=== PATIENT | male | born 1950 | race Caucasian/White ===

== ENCOUNTER 2017-07-23 10:00 | Outpatient (RCR) | payer MEDICARE, SELFPAY ==
--- NOTE | 2017-06-09 17:10 | HP.PTEVAL_ITS ---
Patient's Visit Information ARON AMES is a 67 year old M referred to Physical Therapy by Natalie Nicolas NP.TRINIPSIT with a diagnosis of LUMBAR STENOSIS WITH NEUROGENIC CLAUDICATION. OA DIAN HIPS.. Date of Evaluation: 06/09/17 Physical Therapist: Noemi Falcon - Visit Plan Frequency: 2-3x /Week Duration: 4-6 Weeks Plan: POSTURE CORRECTION/STRENGTHENING, INSTRUCTION IN APPROPRIATE BODY MECHANICS AND ACTIVITY MODIFICATIONS. DLS STARTING WITH A NEUTRAL SPINE PROGRESSING ROM TOLERATED. DIAN LE ROM, STRETCHING AND STRENGTHENING. HEP INSTRUCTION. - Subjective Subjective: Work/Leisure: RETIRED. Disability: NO. Present symptoms: LOW BACK PAIN RADIATING DOWN BOTH LEGS TO TOES. Present since: CHRONIC LBP BUT THIS EPISODE STARTED GETTING SEVER ABOUT 6 MONTHS AGO. Pain Scale: WORST 10/10 , LEAST 5/10. Currently: 12/05. Commenced as a result of: NO APPARENT REASON. Symptoms at onset: BACK. Worse: STANDING, STANDING, SITTING. Better : LYING DOWN - SLEEPING. Disturbed sleep: NO. Previous history/Previous treatment: ACCUPUNCTURE, PT, AQUA THERAPY, CHIROPRACTOR, DORIS'S - ALL TO NO AVAIL. Coughing/sneezing/straining: NEGATIVE. Gait: FWW AT TIMES. WALKING IS VERY PAINFUL. STATES HE HAS TO HOBBLE. STATES HE WALKS FAST TO GET IT OVER WITH. SOME DAYS CAN BARELY WALK 15 FEET. Difficulty initiating urinatin: NO. Accidents: NO. Unexplained weight loss: NO. Imaging: LUMBAR X-RAYS ABOUT A WEEK AGO SHOWING STENOSIS AND DIAN HIP ARTHRITIS. MRI PENDING OUTCOME OF PT. PMH: SEE BELOW. OTHER: STATES HE NEEDS OXYGEN OCCASSIONALLY AND WILL BRING HIS WITH HIM. - Objective Sitting Posture: POOR. Standing Posture: POOR. Lordosis: REDUCED. Lateral shift: NO. Relevant shift: N/A. Active Correction of posture: NE. Other Observations: INDEP GAIT INTO PT APPROX 300 FEET. PATIENT HURRIED TO THE CHAIR. BECAME SOB AT THE END OF THE WALK BUT REPORTED NEEDING TO SIT DOWN MOSTLY BECAUSE OF BACK AND LEG PAIN. HE CAME WITHOUT OXYGEN OR ASSISTIVE DEVICE. Motor deficit: SIGNIFICANT DIAN LE WEAKNESS LEFT > RIGHT. MMT'ING APPEARS TO BE PAIN LIMITED AND HIS GROSS LE STRENGTH APPEARS TO BE 3+ TO 4-/5. HE DOES HAVE STRONG DIAN DORSI FLEX STRENGTH BUT WEAK PLANTAR FLEXORS. Sensory deficit: DECREASED LEFT ANTERIOR AND LATERAL THIGH LIGHT TOUCH SENSATION WITH TESTING. ROM deficit: TIGHT DIAN HAMSTRINGS AND DORSIFLEXORS. Reflexes: UNABLE TO ELICIT DIAN LE DTR'S. Dural Signs: POSITIVE DIAN LE DURAL SIGNS. Lumbar mvmt loss: flex - JEWELL. ext - JEWELL. R SG - JEWELL. L SG - JEWELL. Core strength: POOR. Palpation: PATIENT IS VERY TENDER IN THE LUMBOSACRAL REGION AND CAN NOT TOLERATE SITTING WITH SUPPORT IN HIS LOW BACK. - Goals Goal 1:: DECREASE C/O BACK AND DIAN LE SX'S. Goal Time Frame: 4-6 Weeks Goal 2:: IMPROVE STANDING, WALKING, LIFTING, SITTING, SOCIAL LIFE, TRAVEL AND HOMEMAKING FUNCTION Goal Time Frame: 4-6 Weeks Goal 3:: INSTRUCT IN PROPHYLAXIS Goal Time Frame: 4-6 Weeks - Rehabilitation Potential Rehabilitation Potential: Fair - Anticipated Interventions Patient/Client Instruction: Educate patient on: Condition, Plan of Care, Risk Factors, Benefits of Fitness Program For the Purpose of:: To improve self management Therapeutic Exercise to Include: Strength training, Endurance training, Balance training, Body mechanics, Postural training, Flexibilty training, Gait and locomotor training, In an aquatic setting, Dynamic Lumbar Stabilization For the Purpose of:: To improve ability of physical actions for home/community/ work/leisure Thank you for the opportunity to evaluate your patient. For Medicare and Medicare HMO plans, please review the plan of care and approve it. It will need to be FAXED BACK to us at [phone] for Medicare purposes. Please let me know if there are questions or concerns regarding this plan of care. Physician Signature: Date:
--- NOTE | 2017-11-04 14:14 | HP.PTDCNRP_ITS ---
HP - Discharge Summary (1) - Patient Information ARON AMES was seen in my office for initial evaluation on 06/09/17. The following Plan of Care was established for this patient: Initial Frequency: 2-3x /Week Initial Duration: 4-6 Weeks - Anticipated Interventions Patient/Client Instruction: Educate patient on: Condition, Plan of Care, Risk Factors, Benefits of Fitness Program For the Purpose of:: To improve self management Therapeutic Exercise to Include: Strength training, Endurance training, Balance training, Body mechanics, Postural training, Flexibilty training, Gait and locomotor training, In an aquatic setting, Dynamic Lumbar Stabilization For the Purpose of:: To improve ability of physical actions for home/community/ work/leisure This patient was last seen in our office 07/23/17. Pertinent comments regarding their Physical therapy will appear below: This patient has not returned to Physical Therapy and is appropriate to return to MD for further follow-up as needed. At this point I will be discontinuing this patient from physical therapy. I would be happy to see this patient again in the future if found appropriate by the physician. Thank you! Noemi Falcon
== END 2017-07-23 19:00 | disposition home or self-care (01) ==
LOC: PT 10:00
PROVIDERS: Family Provider Family Medicine Geriatric Medicine; PCP Family Medicine Geriatric Medicine; Visit Provider Nurse Practitioner Acute Care
DX: M48.062 Spinal stenosis, lumbar region with neurogenic claudication (principal); M16.0 Bilateral primary osteoarthritis of hip
CPT/HCPCS: 97113; 97162; 97164; 97530

== ENCOUNTER → 2017-08-27 08:44 | Outpatient (CLI) | payer MEDICARE, SELFPAY ==
[2017-08-27 13:03] LABS: Absolute Neutrophil Count 3.2 X10^3/uL (2.0-7.7); Basophil# 0.02 X10^3/uL; Basophil% 0.3 % (0-1); Eosinophils% 3.2 % (0-5); Hematocrit 42.6 % (40-54); Hemoglobin 14.4 g/dl (13.0-16.5); Lymphocyte % 33.2 % (19-41); Mean Corp Hgb Conc 33.8 g/gl (32-36); Mean Corpuscular Volume 79.9 fL (80-94); Mean Platelet Vol. 11.2 fl (6.2-12.0); Monocyte% 12.7 % (0-10); Neutrophil # 3.18 X10^3/uL (2.7-7.7); Neutrophil % 50.3 % (47-70); Platelet Count 208 K/mm3 (150-450); RBC Distribution Width SD 37.6 fl (35.1-43.9); Red Blood Count 5.33 M/mm3 (4.6-6.2); White Blood Count 6.3 K/mm3 (4.4-11.0)
[2017-08-27 13:04] LABS: POSITIVE COUNT NO; POSITIVE DIFFERENTIAL NO; POSITIVE MORPHOLOGY NO
[2017-08-27 13:42] LABS: Vitamin D,25 Hydroxy 13.8 ng/mL (29.95-100.01)
[2017-08-27 13:43] LABS: ALB/GLOB Ratio 0.8 RATIO (0.9-2.4); AST(SGOT) 36 U/L (15-37); Alanine Aminotransfer ALT/SGPT 57 U/L (16-61); Albumin, Serum 3.3 g/dL (3.2-5.0); Alkaline Phosphatase 80 U/L (45-117); Anion Gap 12 (5-15); BUN 17 mg/dL (7-18); BUN/Creat Ratio 13.8 RATIO (10-20); Calcium,Total 8.8 mg/dL (8.5-10.1); Chloride 101 mmol/L (98-107); Creatinine, Serum 1.23 mg/dL (0.70-1.30); EST Glomerular Filtration Rate 62 mL/min (>60); Est Glom Filt Rate - Afr Amer 75 mL/min (>60); Globulin 4.1 g/dL (2.2-4.2); Glucose 286 mg/dL (74-106); Potassium 4.5 mmol/L (3.5-5.1); Protein, Total 7.4 g/dL (6.4-8.2); Sodium Level 136 mmol/L (136-145); Thyroid Stim Hormone (TSH) 2.08 uIU/mL (0.358-3.74)
== END ==
PROVIDERS: Family Provider Family Medicine Geriatric Medicine; PCP Family Medicine Geriatric Medicine; Visit Provider Family Medicine Geriatric Medicine
DX: E11.9 Type 2 diabetes mellitus without complications (principal); E55.9 Vitamin D deficiency, unspecified; I10 Essential (primary) hypertension
CPT/HCPCS: 36415; 80053; 82306; 84443; 85025

== ENCOUNTER → 2017-09-08 10:49 | Outpatient (CLI) | payer MEDICARE, SELFPAY ==
--- NOTE | 2017-09-08 10:51 | CT_ITS ---
STUDY: CT ABDOMEN AND PELVIS WITH IV CONTRAST REASON FOR EXAM: Male, 67 years old. Aortic aneurysm. RADIATION DOSAGE (If Supplied By Facility): CTDIvol = ( 29.55 ) mGy, DLP = ( 1303.45 ) mGycm TECHNIQUE: Transaxial images were obtained from the dome of the diaphragm to the symphysis pubis without oral contrast. 100 ml of Isovue 300 contrast was administered. Sagittal and coronal images were reconstructed. Individualized dose optimization techniques were used for this CT. COMPARISON: 08/13/2016 FINDINGS: There is atelectasis noted at the lung bases. The visualized portions of the heart and pericardium are within normal limits. The patient is status post cholecystectomy. The liver, spleen, pancreas, adrenal glands and kidneys are within normal limits. There is no bowel obstruction or inflammation. The appendix is normal. There is a stable 3.7 cm infrarenal abdominal aortic aneurysm. There is no evidence of abdominal aortic dissection. There are atherosclerotic calcifications noted in the aorta and its branches. The celiac artery, superior mesenteric artery, bilateral renal arteries and inferior mesenteric artery are patent and normal in caliber. There is no abdominal or pelvic free air, free fluid or lymphadenopathy. There are no destructive osseous lesions. CT/CT ANGIO ABD&PEL W/O&W/DYE IMPRESSION: Stable 3.7 cm infrarenal abdominal aortic aneurysm. Electronically Signed: Thien Montalvo, at 19:58 EDT Tel , Service support ,
--- NOTE | 2017-09-08 10:51 | CDU_ITS ---
Reason For Study: bruit Rt. Velocities/BP Lt. Velocities/BP Prox CCA 141.0/20.6 cm/sec. Prox CCA 119.0/20.4 cm/sec. Mid CCA 105.0/21.1 cm/sec. Mid CCA 166.0/29.5 cm/sec. Dist CCA 189.0/26.5 cm/sec. Dist CCA 176.0/30.4 cm/sec. Prox ICA 307.0/71.1 cm/sec. Prox ICA 139.0/35.4 cm/sec. Mid ICA 256.0/50.5 cm/sec. Mid ICA 440.0/101.0 cm/sec. Dist ICA 124.0/41.9 cm/sec. Dist ICA 343.0/58.4 cm/sec. Rt. ICA/CCA = 307.0/105.0=2.9. Lt. ICA/CCA = 440.0/166.0=2.7. Prox ECA 279.0/24.9 cm/sec. Prox ECA 203.0/18.3 cm/sec. Rt. Vert. 98.2/21.6 cm/sec. Lt. Vert. 51.1/9.43 cm/sec. Right Extracranial There is heterogeneous, irregular atherosclerotic plaque noted in the right common carotid artery. There is heterogeneous, irregular atherosclerotic plaque noted in the right internal carotid artery. The atherosclerotic plaque causes acoustic shadowing. There is heterogeneous, irregular atherosclerotic plaque noted in the right external carotid artery. Antegrade flow is noted in the right vertebral artery. Left Extracranial There is heterogeneous, irregular atherosclerotic plaque noted in the left common carotid artery. There is heterogeneous, irregular atherosclerotic plaque noted in the left internal carotid artery. The atherosclerotic plaque causes acoustic shadowing. There is homogeneous, smooth atherosclerotic plaque noted in the left external carotid artery. Antegrade flow is noted in the left vertebral artery. Procedure Carotid Duplex [id number]. The study was technically difficult. Due to body habitus. Exam performed in department. Interpretation Summary Severe (>70%) stenosis right extracranial internal carotid. Severe (>70%) stenosis left extracranial internal carotid. Flow within the vertebral arteries is antegrade bilaterally. Ordering Physician: Ramiro Waldron Referring Physician: Bruce Calvillo Chi Performed By: Lillian Rios RDCS, RVT
== END ==
PROVIDERS: Family Provider Family Medicine Geriatric Medicine; PCP Family Medicine Geriatric Medicine; Visit Provider Internal Medicine Cardiovascular Disease
DX: I71.4 Abdominal aortic aneurysm, without rupture (principal); R09.89 Other specified symptoms and signs involving the circulatory and respiratory systems
CPT/HCPCS: 74174; 93880; Q9967; A4216

== ENCOUNTER → 2017-11-28 11:40 | Outpatient (CLI) | payer MEDICARE, SELFPAY ==
[2017-11-28 13:33] LABS: Creatinine, Serum 1.25 mg/dL (0.70-1.30); EST Glomerular Filtration Rate 61 mL/min (>60); Est Glom Filt Rate - Afr Amer 74 mL/min (>60)
== END ==
PROVIDERS: Family Provider Family Medicine Geriatric Medicine; PCP Family Medicine Geriatric Medicine; Visit Provider Surgery Vascular Surgery
DX: I65.23 Occlusion and stenosis of bilateral carotid arteries (principal)
CPT/HCPCS: 36415; 82565

== ENCOUNTER → 2017-12-01 09:33 | Outpatient (CLI) | payer MEDICARE, SELFPAY ==
[2017-12-01 13:03] LABS: Absolute Lymphocyte Count 3.03 X10^3/ul (0.83-4.51); Basophil# 0.04 X10^3/uL; Basophil% 0.5 % (0-1); Eosinophil# 0.29 X10^3/uL; Eosinophils% 3.5 % (0-5); Hematocrit 43.8 % (40-54); Hemoglobin 14.6 g/dl (13.0-16.5); Lymphocyte # 3.03 X10^3/ul (4.0); Lymphocyte % 36.8 % (19-41); Mean Corp Hgb Conc 33.3 g/gl (32-36); Mean Corpuscular Hgb 26.6 pg (27.0-32.0); Mean Corpuscular Volume 79.9 fL (80-94); Mean Platelet Vol. 11.3 fl (6.2-12.0); Monocyte# 0.88 X10^3/uL; Monocyte% 10.7 % (0-10); Neutrophil # 3.99 X10^3/uL (2.7-7.7); Neutrophil % 48.4 % (47-70); Platelet Count 197 K/mm3 (150-450); RBC Distribution Width CV 14.1 % (11.6-14.6); Red Blood Count 5.48 M/mm3 (4.6-6.2); White Blood Count 8.2 K/mm3 (4.4-11.0)
[2017-12-01 13:04] LABS: POSITIVE COUNT NO; POSITIVE DIFFERENTIAL NO; POSITIVE MORPHOLOGY NO
[2017-12-01 13:29] LABS: Vitamin D,25 Hydroxy 13.8 ng/mL (29.95-100.01)
[2017-12-01 13:31] LABS: ALB/GLOB Ratio 0.8 RATIO (0.9-2.4); AST(SGOT) 36 U/L (15-37); Alanine Aminotransfer ALT/SGPT 59 U/L (16-61); Albumin, Serum 3.3 g/dL (3.2-5.0); Alkaline Phosphatase 66 U/L (45-117); Anion Gap 10 (5-15); BUN 16 mg/dL (7-18); BUN/Creat Ratio 13.8 RATIO (10-20); Chloride 103 mmol/L (98-107); Creatinine, Serum 1.16 mg/dL (0.70-1.30); EST Glomerular Filtration Rate 66 mL/min (>60); Est Glom Filt Rate - Afr Amer 80 mL/min (>60); Globulin 4.3 g/dL (2.2-4.2); Glucose 180 mg/dL (74-106); PSA,Total - Annual Screen 0.84 ng/mL (0.00-4.00); Potassium 4.4 mmol/L (3.5-5.1); Protein, Total 7.6 g/dL (6.4-8.2); Sodium Level 141 mmol/L (136-145); Thyroid Stim Hormone (TSH) 1.23 uIU/mL (0.358-3.74)
[2017-12-02 15:15] LABS: Hep C Antibodies 0.1 s/co ratio (0.0-0.9)
== END ==
PROVIDERS: Family Provider Family Medicine Geriatric Medicine; PCP Family Medicine Geriatric Medicine; Visit Provider Family Medicine Geriatric Medicine
DX: E11.9 Type 2 diabetes mellitus without complications (principal); E55.9 Vitamin D deficiency, unspecified; I10 Essential (primary) hypertension; Z12.5 Encounter for screening for malignant neoplasm of prostate; Z13.89 Encounter for screening for other disorder
CPT/HCPCS: 36415; 80053; 82306; 84153; 84443; 85025; 86803; G0103

== ENCOUNTER → 2017-12-05 08:32 | Outpatient (CLI) | payer MEDICARE, SELFPAY ==
--- NOTE | 2017-12-05 08:35 | US_ITS ---
PROCEDURES: ULTRASOUND AORTA REASON FOR EXAM: Male, 67 years old. Abdominal aortic aneurysm TECHNIQUE: Ultrasound evaluation of the aorta was performed with real-time and static franklin-scale imaging. COMPARISON: None. FINDINGS: There is no significant tortuosity of the abdominal aorta. Aorta measures: Proximal 2.4 cm. Middle 2.4 cm. Distal 3.3 cm. Aorta measure transversely: Proximal 2.1 cm. Middle 2.5 cm. Distal 3.6 cm. Right iliac artery measures: 1.4 cm. Right iliac artery measure transversely: 1.5 cm. Left iliac artery measures: 1.8 cm. Left iliac artery measure transversely: 1.9 cm. Infrarenal abdominal aortic aneurysm measures 3.6 cm in greatest diameter and 3.7 cm in length. US/Aorta IMPRESSION: 3.6 cm infrarenal abdominal aortic aneurysm. Electronically Signed: Abdi Joy MD at 2:52 EDT Tel , Service support ,
== END ==
PROVIDERS: Family Provider Family Medicine Geriatric Medicine; PCP Family Medicine Geriatric Medicine; Visit Provider Family Medicine Geriatric Medicine
DX: I71.4 Abdominal aortic aneurysm, without rupture (principal)
CPT/HCPCS: 76775

== ENCOUNTER → 2017-12-15 07:43 | Outpatient (CLI) | payer MEDICARE, SELFPAY | PROVIDERS: Family Provider Family Medicine Geriatric Medicine; PCP Family Medicine Geriatric Medicine; Visit Provider Surgery Vascular Surgery | DX: I65.23 Occlusion and stenosis of bilateral carotid arteries (principal) | CPT/HCPCS: 70498; Q9967 ==

== ENCOUNTER → 2018-03-02 10:44 | Outpatient (CLI) | payer MEDICARE, SELFPAY ==
[2018-03-02 12:46] LABS: Absolute Lymphocyte Count 3.29 X10^3/ul (0.83-4.51); Absolute Neutrophil Count 4.6 X10^3/uL (2.0-7.7); Basophil# 0.05 X10^3/uL; Basophil% 0.5 % (0-1); Eosinophil# 0.22 X10^3/uL; Eosinophils% 2.4 % (0-5); Hematocrit 47.7 % (40-54); Hemoglobin 15.1 g/dl (13.0-16.5); Lymphocyte # 3.29 X10^3/ul (4.0); Lymphocyte % 35.7 % (19-41); Mean Corp Hgb Conc 31.7 g/gl (32-36); Mean Corpuscular Volume 85.3 fL (80-94); Mean Platelet Vol. 11.1 fl (6.2-12.0); Monocyte# 1.07 X10^3/uL; Monocyte% 11.6 % (0-10); Neutrophil # 4.57 X10^3/uL (2.7-7.7); Neutrophil % 49.6 % (47-70); Platelet Count 182 K/mm3 (150-450); RBC Distribution Width CV 16.6 % (11.6-14.6); RBC Distribution Width SD 52.1 fl (35.1-43.9); Red Blood Count 5.59 M/mm3 (4.6-6.2); White Blood Count 9.2 K/mm3 (4.4-11.0)
[2018-03-02 12:49] LABS: POSITIVE COUNT NO; POSITIVE DIFFERENTIAL NO; POSITIVE MORPHOLOGY NO
[2018-03-02 13:08] LABS: ALB/GLOB Ratio 0.8 RATIO (0.9-2.4); AST(SGOT) 33 U/L (15-37); Alanine Aminotransfer ALT/SGPT 66 U/L (16-61); Albumin, Serum 3.3 g/dL (3.2-5.0); Alkaline Phosphatase 59 U/L (45-117); Anion Gap 11 (5-15); BUN 13 mg/dL (7-18); BUN/Creat Ratio 10.4 RATIO (10-20); Calcium,Total 8.4 mg/dL (8.5-10.1); Chloride 102 mmol/L (98-107); Creatinine, Serum 1.25 mg/dL (0.70-1.30); EST Glomerular Filtration Rate 61 mL/min (>60); Est Glom Filt Rate - Afr Amer 74 mL/min (>60); Globulin 4.3 g/dL (2.2-4.2); Glucose 211 mg/dL (74-106); Potassium 4.5 mmol/L (3.5-5.1); Protein, Total 7.6 g/dL (6.4-8.2); Sodium Level 138 mmol/L (136-145); Thyroid Stim Hormone (TSH) 0.95 uIU/mL (0.358-3.74)
[2018-03-02 13:11] LABS: Vitamin D,25 Hydroxy 12.6 ng/mL (29.95-100.01)
== END ==
PROVIDERS: Family Provider Family Medicine Geriatric Medicine; PCP Family Medicine Geriatric Medicine; Visit Provider Family Medicine Geriatric Medicine
DX: E11.9 Type 2 diabetes mellitus without complications (principal); E55.9 Vitamin D deficiency, unspecified; I10 Essential (primary) hypertension
CPT/HCPCS: 36415; 80053; 82306; 84443; 85025

== ENCOUNTER → 2018-06-01 13:53 | Outpatient (CLI) | payer MEDICARE, SELFPAY ==
[2018-06-01 16:21] LABS: Vitamin D,25 Hydroxy 10.1 ng/mL (29.95-100.01)
[2018-06-01 16:25] LABS: ALB/GLOB Ratio 0.8 RATIO (0.9-2.4); AST(SGOT) 23 U/L (15-37); Alanine Aminotransfer ALT/SGPT 52 U/L (16-61); Albumin, Serum 3.3 g/dL (3.2-5.0); Alkaline Phosphatase 70 U/L (45-117); Anion Gap 11 (5-15); BUN 14 mg/dL (7-18); BUN/Creat Ratio 11.3 RATIO (10-20); Calcium,Total 8.7 mg/dL (8.5-10.1); Chloride 103 mmol/L (98-107); Creatinine, Serum 1.24 mg/dL (0.70-1.30); EST Glomerular Filtration Rate 61 mL/min (>60); Est Glom Filt Rate - Afr Amer 74 mL/min (>60); Globulin 3.9 g/dL (2.2-4.2); Glucose 252 mg/dL (74-106); Potassium 4.6 mmol/L (3.5-5.1); Protein, Total 7.2 g/dL (6.4-8.2); Sodium Level 141 mmol/L (136-145); Thyroid Stim Hormone (TSH) 1.23 uIU/mL (0.358-3.74)
[2018-06-01 16:31] LABS: Absolute Lymphocyte Count 2.32 X10^3/ul (0.83-4.51); Absolute Neutrophil Count 3.3 X10^3/uL (2.0-7.7); Basophil# 0.02 X10^3/uL; Basophil% 0.3 % (0-1); Eosinophil# 0.23 X10^3/uL; Eosinophils% 3.5 % (0-5); Hematocrit 45.6 % (40-54); Hemoglobin 14.7 g/dl (13.0-16.5); Lymphocyte # 2.32 X10^3/ul (4.0); Mean Corp Hgb Conc 32.2 g/gl (32-36); Mean Corpuscular Hgb 28.1 pg (27.0-32.0); Mean Platelet Vol. 11.3 fl (6.2-12.0); Monocyte# 0.75 X10^3/uL; Monocyte% 11.3 % (0-10); Neutrophil % 49.7 % (47-70); Platelet Count 174 K/mm3 (150-450); RBC Distribution Width CV 13.5 % (11.6-14.6); RBC Distribution Width SD 42.7 fl (35.1-43.9); Red Blood Count 5.24 M/mm3 (4.6-6.2); White Blood Count 6.6 K/mm3 (4.4-11.0)
[2018-06-01 16:32] LABS: POSITIVE COUNT NO; POSITIVE DIFFERENTIAL NO; POSITIVE MORPHOLOGY NO
== END ==
PROVIDERS: Family Provider Family Medicine Geriatric Medicine; PCP Family Medicine Geriatric Medicine; Visit Provider Family Medicine Geriatric Medicine
DX: E11.9 Type 2 diabetes mellitus without complications (principal); E23.6 Other disorders of pituitary gland; E55.9 Vitamin D deficiency, unspecified; I10 Essential (primary) hypertension
CPT/HCPCS: 36415; 80053; 82306; 84403; 84443; 85025

== ENCOUNTER → 2018-06-10 14:22 | Outpatient (CLI) | payer MEDICARE, SELFPAY ==
[2018-06-02 14:32] VITALS: BMI 39.4
--- NOTE | 2018-06-10 14:30 | CT_ITS ---
STUDY: CT SOFT TISSUE NECK WITH CONTRAST REASON FOR EXAM: Male, 68 years old. Pain and swelling. History of lung and tongue cancer. Postsurgery of the tongue. RADIATION DOSAGE (If Supplied By Facility): CTDIvol = ( ) mGy, DLP = ( ) mGycm TECHNIQUE: The patient was scanned in a multi-detector CT scanner. High resolution transaxial imaging was performed following intravenous administration of Isovue 300 75ML IV. Sagittal and coronal images were reconstructed. Individualized dose optimization techniques were used for this CT. COMPARISON: 12/15/17. FINDINGS: Distortions of the tongue, and the left pharyngeal wall and parapharyngeal spaces is seen related to surgical dissection. The appearance is similar to prior study. 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 No gross focal mass or adenopathy is seen. No gross invasive process. Grossly normal oropharynx. No definite oropharyngeal mass. No gross adenopathy. Extensive bilateral calcified atherosclerosis seen in the carotids with significant bilateral narrowing, also seen on the previous CTA of 12/15/2017. Atrophy is seen of the parotid glands. The left submandibular gland has been removed. Normal visualized nasopharynx. Normal retropharyngeal space. Normal perivertebral space. The visualized cervical lymph nodes (levels I-) are within normal size limits, and maintain normal morphology. There is no demonstrated solid or cystic mass lesion. There is no abnormal contrast enhancement. Normal epiglottis, bilateral vallecula and hypopharynx. The pre-epiglottic and paraglottic adipose spaces are normal. Normal visualized bilateral piriform sinuses, aryepiglottic folds, vocal cords, and arytenoid-cricoid articulations. Normal subglottic trachea. Normal bilateral lobes of the thyroid gland. Normal visualized pulmonary apices. Normal visualized paranasal sinuses. Normal visualized cervical spine. CT/Soft Tissue Neck WITH Contrast IMPRESSION: Postsurgical changes and distortions on the left including absence of the left sternocleidomastoid, unchanged since 12/15/2017. No evidence for adenopathy or recurrent mass. Severe bilateral carotid atherosclerosis. Electronically Signed: Rodríguez Duong MD at 21:24 EST , Service support ,
== END ==
PROVIDERS: Family Provider Family Medicine Geriatric Medicine; PCP Family Medicine Geriatric Medicine; Referring Provider Otolaryngology; Visit Provider Otolaryngology
DX: M54.2 Cervicalgia (principal); Z85.818 Personal history of malignant neoplasm of other sites of lip, oral cavity, and pharynx; Z98.890 Other specified postprocedural states
CPT/HCPCS: 70491; Q9967

== ENCOUNTER → 2018-06-18 11:01 | Outpatient (CLI) | payer MEDICARE, SELFPAY ==
[2018-06-02 14:32] VITALS: BMI 39.4
--- NOTE | 2018-06-19 10:07 | PFTCOMP ---
COMPLETE PULMONARY FUNCTION TEST INTERPRETATION Brief HPI: Patient is a 68 year old male, currently under the care of Inge Miller, who presents to [facility] for complete pulmonary function tests secondary to diagnosis of COPD. Respiratory therapist reports good effort and reproducible results. Interpretation: Forced expiration spirometry shows a severe large airways obstructive ventilatory defect with an FEV1 of 46% predicted. There is a significant bronchodilator response in FVC and FEV1 by strict ATS criteria. Spirograms are of good quality and plateau slowly, indicating slowly emptying areas of the lungs. The respiratory flow volume loop shows decreased expiratory flow rates at all lung volumes consistent with airway obstruction. Lung volumes by body plethysmography show a decreased total lung capacity at 5.24 L, 75% predicted. All other lung volumes are reduced symmetrically. Diffusion capacity by carbon monoxide is decreased at 63% predicted. The airway resistance is elevated. Compared to previous pulmonary function tests from 11/07/2015, there has been no significant change. Impression: Severe mixed ventilatory defect with significant response to bronchodilators.
== END ==
PROVIDERS: Family Provider Family Medicine Geriatric Medicine; PCP Family Medicine Geriatric Medicine; Referring Provider Nurse Practitioner Acute Care; Visit Provider Nurse Practitioner Acute Care
DX: J44.9 Chronic obstructive pulmonary disease, unspecified (principal)
CPT/HCPCS: 94060; 94726; 94729

== ENCOUNTER → 2018-06-23 14:36 | Outpatient (CLI) | payer MEDICARE, SELFPAY ==
[2018-06-23 13:46] VITALS: BMI 39.6
== END ==
PROVIDERS: Family Provider Family Medicine Geriatric Medicine; PCP Family Medicine Geriatric Medicine; Referring Provider Nurse Practitioner Family; Visit Provider Nurse Practitioner Family
DX: I25.10 Atherosclerotic heart disease of native coronary artery without angina pectoris (principal); I50.32 Chronic diastolic (congestive) heart failure; R06.09 Other forms of dyspnea; R53.83 Other fatigue; Z95.5 Presence of coronary angioplasty implant and graft
CPT/HCPCS: 36415; 83880

== ENCOUNTER → 2018-06-24 10:52 | Outpatient (CLI) | payer MEDICARE, SELFPAY ==
[2018-06-02 14:32] VITALS: BMI 39.4
[2018-06-23 13:46] VITALS: BMI 39.6
[2018-06-24 11:24] VITALS: PULSE 68; PULSE 71; PULSE 74; PULSE 76; PULSE 77; PULSE 79; PULSE 86; PULSE 87; O2SAT 90; O2SAT 91; O2SAT 92; O2SAT 94; O2SAT 96
--- NOTE | 2018-06-24 13:30 | PCM.PSN.6M ---
PSN 6 Minute Walk Test - 6 Minute Walk Test 6 Minute Walk Test: 6 Minute Walk Test PSN:6-Minute Walk Test Start: 06/24/18 11:24 Freq: Status: Active Protocol: RESP.6MINW Document 06/24/18 11:24 HAYDEE (Rec: 06/24/18 11:28 HAYDEE [id number]) 6 Minute Walk Test Date Performed 06/24/18 Time Performed 11:00 Height 6 ft Weight: 290 lb Weight in Pounds 290.[address]: Walt Finley Assistive device used: None Pre-test Oxygen Delivery Method Room Air Pulse Ox (%) 94 Pulse Rate (60-100 beats/min) 71 Dyspnea Aiyana Scale (0-10) 0.5 Exertion Aiyana Scale (6-20) 6 1st minute Oxygen Delivery Method Room Air Pulse Ox (%) 94 Pulse Rate (60-100 beats/min) 74 2nd minute Oxygen Delivery Method Room Air Pulse Ox (%) 92 Pulse Rate (60-100 beats/min) 86 Number of Rests Taken 1 3rd minute Oxygen Delivery Method Room Air Pulse Ox (%) 91 Pulse Rate (60-100 beats/min) 79 4th minute Oxygen Delivery Method Room Air Pulse Ox (%) 92 Pulse Rate (60-100 beats/min) 87 Number of Rests Taken 1 Reported Symptoms Increased Work of Breathing 5th minute Oxygen Delivery Method Room Air Pulse Ox (%) 90 Pulse Rate (60-100 beats/min) 77 Number of Rests Taken 1 Reported Symptoms Increased Work of Breathing 6th minute Oxygen Delivery Method Room Air Pulse Ox (%) 92 Pulse Rate (60-100 beats/min) 76 Dyspnea Aiyana Scale (0-10) 5 Exertion Aiyana Scale (6-20) 14 Reported Symptoms Increased Work of Breathing Post-test Oxygen Delivery Method Room Air Pulse Ox (%) 96 Pulse Rate (60-100 beats/min) 68 Full Laps Walked 10 Partial Lap, Number of Tiles Walked 15 Total Distance Walked (ft) 605 - Interpretation Interpretation: The patient ambulated 605 feet over the course of 6 minutes beginning on room air without assistive devices or breaks. Pretesting oxygen saturation was noted to be 94% on room air. With ambulation, the bimal oxygen saturation was 90%. This testing indicated the presence of impaired walk distance and significant exertional oxygen desaturation. - Recommendations Recommendations: There is no indication for the use of supplemental oxygen at this time. However, close interval follow-up is recommended, given the degree of oxygen desaturation noted during this study.
== END ==
PROVIDERS: Family Provider Family Medicine Geriatric Medicine; PCP Family Medicine Geriatric Medicine; Referring Provider Nurse Practitioner Acute Care; Visit Provider Nurse Practitioner Acute Care
DX: J44.9 Chronic obstructive pulmonary disease, unspecified (principal)
CPT/HCPCS: 94618

== ENCOUNTER → 2018-07-23 09:41 | Outpatient (CLI) | payer MEDICARE, SELFPAY ==
[2018-06-23 13:46] VITALS: BMI 39.6
[2018-07-17 09:34] VITALS: BMI 39.3
--- NOTE | 2018-07-23 09:43 | ECHOCS_ITS ---
Reason For Study: Dyspnea/SOB Procedure This was a 2D Doppler, Color Flow transthoracic echocardiogram. Technically difficult study due to patient body habitus, contrast injection performed. The study was technically difficult. Contrast injection was performed. Exam performed in department. Left Ventricle Based upon the 2D echocardiographic and contrast enhanced images obtained there appears to be grossly normal left ventricular size, wall motion, and systolic function. The estimated ejection fraction is 60 %. Diastolic function is indeterminate. Right Ventricle Based upon the 2D echocardiographic images obtained there appears to be grossly normal right ventricular size and systolic function. Atria The left atrium is mildly enlarged. Normal right atrium. No doppler evidence for ASD. Mitral Valve There is mild mitral annular calcification. Extension of the mitral annular calcification onto the posterior mitral valve leaflet. Trivial mitral valve insufficiency. Tricuspid Valve The tricuspid valve is not well visualized. Trivial tricuspid valve insufficiency. Unable to estimate RV systolic pressure/pulmonary artery pressure due to technically difficult study. Aortic Valve Trisinus/trileaflet aortic valve. Mild focal aortic valve calcification. Pulmonic Valve The pulmonic valve is not well visualized. Great Vessels The aortic root is not well visualized. Pericardium/Pleural No pericardial effusion. Medication 22 gauge I.V. with prn adaptor inserted into right arm. Diluted definity 7ml given slow IV push to enhance endocardial definition. MMode/2D Measurements & Calculations LVIDd: 5.0 cm IVSd: 1.7 cm LAV(MOD-bp): 61.7 ml LVIDs: 3.3 cm LVPWd: 1.2 cm FS: 34.7 % LAV(MOD-bp) Indexed: 24.7 ml/m2 LAV(MOD-sp2): 61.1 ml LAV(MOD-sp4): 59.0 ml LA A4 area: 20.3 cm2 Time Measurements MV dec time: 0.31 sec Doppler Measurements & Calculations MV E max garfield: 97.9 cm/sec Lat Peak E' Garfield: 6.6 cm/sec Med Peak E' Garfield: 6.5 cm/sec MV A max garfield: 133.7 cm/sec E/E' lat: 14.9 E/E' med: 15.2 MV E/A: 0.73 MV V2 max: 134.8 cm/sec MV P1/2t max garfield: 112.7 cm/sec Ao V2 max: 156.0 cm/sec MV max P.3 mmHg MV P1/2t: 99.3 msec Ao max P.7 mmHg MV V2 mean: 69.2 cm/sec Ao V2 mean: 107.7 cm/sec MV mean P.3 mmHg MV dec slope: 332.2 cm/sec2 Ao mean P.1 mmHg MV V2 VTI: 44.2 cm MVA(P1/2t): 2.2 cm2 Ao V2 VTI: 28.4 cm LV V1 max: 122.2 cm/sec PA V2 max: 133.9 cm/sec LV V1 max P.0 mmHg LV V1 mean P.9 mmHg LV V1 mean: 78.4 cm/sec LV V1 VTI: 25.3 cm Interpretation Summary The study was technically difficult. Contrast injection was performed. Based upon the 2D echocardiographic and contrast enhanced images obtained there appears to be grossly normal left ventricular size, wall motion, and systolic function. The estimated ejection fraction is 60 %. The left atrium is mildly enlarged. There is mild mitral annular calcification. Extension of the mitral annular calcification onto the posterior mitral valve leaflet. Trivial mitral valve insufficiency. Trivial tricuspid valve insufficiency. Mild focal aortic valve calcification. Unable to estimate RV systolic pressure/pulmonary artery pressure due to technically difficult study. Diastolic function is indeterminate. Ordering Physician: Neno Polanco Referring Physician: Neno Polanco Performed By: Florencio Lucio RCS
== END ==
PROVIDERS: Family Provider Family Medicine Geriatric Medicine; PCP Family Medicine Geriatric Medicine; Referring Provider Nurse Practitioner Family; Visit Provider Nurse Practitioner Family
DX: G47.33 Obstructive sleep apnea (adult) (pediatric) (principal); R06.09 Other forms of dyspnea; R53.83 Other fatigue; I25.10 Atherosclerotic heart disease of native coronary artery without angina pectoris; I50.32 Chronic diastolic (congestive) heart failure; Z95.5 Presence of coronary angioplasty implant and graft
CPT/HCPCS: 93306; Q9957; A4216; C8929

== ENCOUNTER → 2018-07-27 09:39 | Outpatient (CLI) | payer MEDICARE, SELFPAY ==
[2018-07-17 09:34] VITALS: BMI 39.3
--- NOTE | 2018-07-27 09:42 | CDU_ITS ---
Reason For Study: VERTIGO Rt. Velocities/BP Lt. Velocities/BP Prox CCA 98.6/21.6 cm/sec. Prox CCA 160.0/30.5 cm/sec. Mid CCA 89.4/20.3 cm/sec. Mid CCA 168.8/39.3 cm/sec. Dist CCA 180.3/40.4 cm/sec. Dist CCA 207.6/38.6 cm/sec. Prox ICA 337.7/79.4 cm/sec. Prox ICA 159.4/35.2 cm/sec. Mid ICA 263.4/44.2 cm/sec. Mid ICA 270.2/63.3 cm/sec. Dist ICA 131.9/23.1 cm/sec. Dist ICA 124.1/43.8 cm/sec. Rt. ICA/CCA = 337.7/89.4=3.8. Lt. ICA/CCA = 270.2/168.8=1.6. Prox ECA 274.0/27.0 cm/sec. Prox ECA 211.4/14.5 cm/sec. Rt. Vert. 52.7/17.1 cm/sec. Lt. Vert. 65.0/17.1 cm/sec. Right Extracranial There is heterogeneous, irregular atherosclerotic plaque noted in the right common carotid artery. There is heterogeneous, irregular atherosclerotic plaque noted in the right internal carotid artery. The atherosclerotic plaque causes acoustic shadowing. There is heterogeneous, irregular atherosclerotic plaque noted in the right external carotid artery. Antegrade flow is noted in the right vertebral artery. There is heterogeneous, irregular atherosclerotic plaque noted in the right bulb. Left Extracranial There is heterogeneous, irregular atherosclerotic plaque noted in the left common carotid artery. There is heterogeneous, irregular atherosclerotic plaque noted in the left internal carotid artery. The atherosclerotic plaque causes acoustic shadowing. There is heterogeneous, smooth atherosclerotic plaque noted in the left external carotid artery. Antegrade flow is noted in the left vertebral artery. There is heterogeneous, irregular atherosclerotic plaque noted in the left bulb. Procedure Carotid Duplex [id number]. The study was technically difficult. Pt had difficulty holding neck in optimal position for exam. The exam was diagnostic. Exam performed in department. Interpretation Summary Severe (>70%) stenosis right extracranial internal carotid. Moderate (50-69%) stenosis left extracranial internal carotid. Flow within the vertebral arteries is antegrade bilaterally. Ordering Physician: Neno Polanco Referring Physician: Bud Cohen Performed By: Lillian Rios, RASHAD, RVT
== END ==
PROVIDERS: Family Provider Family Medicine Geriatric Medicine; PCP Family Medicine Geriatric Medicine; Referring Provider Nurse Practitioner Family; Visit Provider Nurse Practitioner Family
DX: I65.23 Occlusion and stenosis of bilateral carotid arteries (principal); R42 Dizziness and giddiness
CPT/HCPCS: 93880

== ENCOUNTER → 2018-08-03 11:33 | Outpatient (CLI) | payer MEDICARE, SELFPAY ==
[2018-08-03 10:53] VITALS: BMI 39.3
--- NOTE | 2018-08-03 11:36 | RAD_ITS ---
STUDY: X-RAY CHEST REASON FOR EXAM: Male, 68 years old. Preoperative TECHNIQUE: PA and lateral views of the chest. COMPARISON: 11/25/2016 FINDINGS: The lungs are clear and expanded. There is no demonstrated pleural abnormality. There is borderline cardiomegaly. Normal mediastinum and diane. Normal visualized pulmonary arteries. Normal visualized aortic arch and descending thoracic aorta. There are diffuse degenerative changes of the visualized thoracic spine. Normal visualized ribs, clavicles, and shoulders. There is no demonstrated abnormality of the visualized soft tissue structures of the upper abdomen. RAD/Chest PA and Lateral IMPRESSION: Clear lungs. No acute findings. Electronically Signed: Lauri Cardenas DO at 11:45 EDT Tel , Service support ,
[2018-08-03 13:15] LABS: Absolute Lymphocyte Count 2.86 X10^3/ul (0.83-4.51); Absolute Neutrophil Count 3.2 X10^3/uL (2.0-7.7); Basophil# 0.03 X10^3/uL; Basophil% 0.4 % (0-1); Eosinophil# 0.26 X10^3/uL; Eosinophils% 3.6 % (0-5); Hematocrit 43.3 % (40-54); Hemoglobin 14.5 g/dl (13.0-16.5); Lymphocyte # 2.86 X10^3/ul (4.0); Lymphocyte % 39.8 % (19-41); Mean Corp Hgb Conc 33.5 g/gl (32-36); Mean Corpuscular Hgb 26.9 pg (27.0-32.0); Mean Corpuscular Volume 80.3 fL (80-94); Mean Platelet Vol. 11.4 fl (6.2-12.0); Monocyte# 0.79 X10^3/uL; Neutrophil # 3.23 X10^3/uL (2.7-7.7); Neutrophil % 44.9 % (47-70); Platelet Count 172 K/mm3 (150-450); RBC Distribution Width CV 12.9 % (11.6-14.6); RBC Distribution Width SD 37.7 fl (35.1-43.9); Red Blood Count 5.39 M/mm3 (4.6-6.2); White Blood Count 7.2 K/mm3 (4.4-11.0)
[2018-08-03 13:19] LABS: International Normalized Ratio 1.1; Prothrombin Time (Protime)PT. 13.7 SECONDS (11.7-14.9)
[2018-08-03 13:20] LABS: Partial Thromboplast Time 25.5 Seconds (24.1-36.2)
[2018-08-03 13:38] LABS: POSITIVE COUNT NO; POSITIVE DIFFERENTIAL NO; POSITIVE MORPHOLOGY NO
[2018-08-03 13:45] LABS: Anion Gap 8 (5-15); BUN 10 mg/dL (7-18); BUN/Creat Ratio 8.8 RATIO (10-20); Calcium,Total 8.6 mg/dL (8.5-10.1); Chloride 103 mmol/L (98-107); Creatinine, Serum 1.14 mg/dL (0.70-1.30); EST Glomerular Filtration Rate 68 mL/min (>60); Est Glom Filt Rate - Afr Amer 82 mL/min (>60); Glucose 294 mg/dL (74-106); Potassium 4.6 mmol/L (3.5-5.1); Sodium Level 135 mmol/L (136-145)
== END ==
PROVIDERS: Family Provider Family Medicine Geriatric Medicine; PCP Family Medicine Geriatric Medicine; Referring Provider Nurse Practitioner Family; Visit Provider Nurse Practitioner Family
DX: I25.10 Atherosclerotic heart disease of native coronary artery without angina pectoris (principal); R06.00 Dyspnea, unspecified; R07.9 Chest pain, unspecified; Z95.5 Presence of coronary angioplasty implant and graft
CPT/HCPCS: 36415; 71046; 80048; 85025; 85610; 85730

== ENCOUNTER 2018-08-11 07:05 | Day surgery (SDC) | payer MEDICARE, SELFPAY ==
[2018-08-03 10:53] VITALS: BMI 39.3
--- NOTE | 2018-08-03 13:20 | HP_ITS ---
HPI HPI Surgical H&P: Yes Details: ARON AMES, is a 68 M who presents to the office today for a cardiovascular outpatient follow-up. He has a history of coronary artery disease status post PTCA/BMS to distal RCA in May 2008, PACs, PVCs, abdominal aortic aneurysm, hypertension, hyperlipidemia, SUJEY with Bipap therapy, COPD, and carotid artery disease. After last office visit patient underwent an echocardiogram that showed ejection fraction of 60%. Due to his ongoing shortness of breath it was recommended he undergo a stress test. Patient did not feel comfortable undergoing stress test due to previous experience and underlying pulmonary disease. Thus, he will proceed with heart catheterization to assess coronary artery disease in relation to his shortness of breath given his history of stenting in 2008. Patient continues to have shortness of breath on exertion. He denies any arm, jaw, or neck pain. He states his dizziness is improved. He states mild chest pain at night. He does not notice this during the day. He denies any presyncope or syncopal episodes. His lower extremity edema is unchanged. He denies any claudication. He acknowledges occasional orthopnea initially until he starts hi BiPap. He denies any PND, fever, chills, blood in urine, blood in stool, or myalgia. He states a general sense of fatigue. Intake Vital Signs 08/03/18 Height 6 ft 08/03/18 Weight: 290 lb 08/03/18 Body Mass Index (BMI) 39.3 08/03/18 Blood Pressure 118/66 08/03/18 Blood Pressure Location Lt brachial 08/03/18 Blood Pressure Position Sitting 08/03/18 Respiratory Rate 16 08/03/18 Pulse Rate 52 L 08/03/18 Pulse Source Palpation 08/03/18 Body Mass Index (BMI) 39.3 Intake Visit Reasons: update H&P for cath [place] Required: No Accompanied by: None Is patient in pain?: No Allergies Zdrxfap-Spb-Cau Reductase Inhibitor Allergy (Verified 08/03/18 10:59) Other acetaminophen [From Lortab] Adverse Reaction (Severe, Verified 08/03/18 10:59) UNKOWN hydrocodone [From Lortab] Adverse Reaction (Severe, Verified 08/03/18 10:59) UNKOWN tramadol [From Ultram] Adverse Reaction (Severe, Verified 08/03/18 10:59) UNKOWN zolpidem [From Ambien] Adverse Reaction (Severe, Verified 08/03/18 10:59) UNKOWN alprazolam [From Xanax] Adverse Reaction (Verified 08/03/18 10:59) Other clopidogrel bisulfate [From Plavix] Adverse Reaction (Verified 08/03/18 10:59) Other loratadine Adverse Reaction (Verified 08/03/18 10:59) Unknown metformin Adverse Reaction (Verified 08/03/18 10:59) Abd cramps/diarrhea oxycodone [Oxycodone] Adverse Reaction (Verified 08/03/18 10:59) Itching oxycodone HCl [From Percocet] Adverse Reaction (Verified 08/03/18 10:59) Itching Penicillins Adverse Reaction (Verified 08/03/18 10:59) Vomiting Medications Nitroglycerin [Nitrostat] 0.4 mg SUBLINGUAL Q5M PRN 07/29/16 [History Confirmed 08/03/18] Linagliptin [Tradjenta] 5 mg PO DAILY 08/01/16 [History Confirmed 08/03/18] glimepiride 4 mg tablet 4 mg PO BID tab 07/21/17 [History Confirmed 08/03/18] lisinopril 10 mg tablet 10 mg PO QDAY 07/21/17 [History Confirmed 08/03/18] metoprolol tartrate 50 mg tablet 25 mg PO BID tab 07/21/17 [History Confirmed 08/03/18] albuterol sulfate 2.5 mg/3 mL (0.083 %) solution for nebulization 2.5 mg INHALATION Q4H PRN #180 ml 03/10/18 [Rx Confirmed 08/03/18] insulin detemir (U-100) 100 unit/mL (3 mL) subcutaneous pen 40 unit SC BID ml 06/23/18 [History Confirmed 08/03/18] prednisone 20 mg tablet 10 mg PO BID PRN tab 07/17/18 [History Confirmed 08/03/18] ticagrelor 90 mg tablet 90 mg PO BID #60 tab 08/03/18 [Rx] Ejection fraction %: 60 to 64 PFSH Medical History Chronic diastolic (congestive) heart failure (Chronic) Hyperlipidemia (Chronic) Dyspnea (Chronic) Old myocardial infarction (Chronic) Premature atrial contractions (Chronic) Premature ventricular contraction (Chronic) Atherosclerotic heart disease of lummi coronary artery without angina pectoris (Chronic) Aneurysm of infrarenal abdominal aorta (Chronic) Benign essential hypertension (Chronic) Type 2 diabetes mellitus (Chronic) Bipolar disorder (Acute) Depression (Acute) SUJEY (obstructive sleep apnea) (Acute) Panic disorder (Acute) 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) COPD (chronic obstructive pulmonary disease) (Chronic) Hepatitis B (Chronic) History of lung cancer (Chronic) Lung nodule (Chronic) Surgical History Postsurgical percutaneous transluminal coronary angioplasty (PTCA) status (Chronic) Presence of stent in coronary artery (Chronic ~06/22/08) History of lobectomy of lung (Chronic) History of lung surgery (Chronic) History of cholecystectomy (Resolved ~2011) History of tongue cancer (Resolved ~2012) Family History Brother Hypertension Mother Heart disease CHF (congestive heart failure) Father Cancer kidney Social History Smoking Status: Former smoker quit date: 04/28/99 pack-years: 20 how long ago did patient quit smokin years ago alcohol intake: former year quit: 1989 substance use type: does not use caffeine: No ROS Const Const: Positive for fatigue and weight gain; negative for weakness, body ache, fever(s) or chills ENT ENT: Positive for dizziness Cardio Chest Pain: Yes Palpitations: No Edema: None Muscle aches with walking: None Resp Respiratory: Positive for SOB with activity and SOB orthopnea\SOB lying down; negative for SOB at rest or paroxysmal nocturnal dyspnea GI GI: Negative nausea, vomiting blood/hematemesis, bright, red blood in stools or black,tarry stools : Negative for hematuria or frequent nighttime urination/ nocturia Musc Musc: Negative for muscle aches/ myalgia Skin Skin: Negative non-healing lesions or rash Neuro Neuro: Positive for dizziness; negative for weakness Endo Endo: Positive for fatigue Allergy Allergy/Immunology: Negative for rash Cardiology Exam Const Appearance: cooperative, healthy appearing, comfortable, well developed and well groomed Nutritional Appearance: well nourished and obese Orientation: alert, awake and oriented x3 Head Head: normal to inspection, normocephalic and atraumatic Ears: hearing grossly normal bilaterally Nose: external nose normal Face and Sinus: face symmetric Mouth: oral mucosae normal Eyes General: appearance normal, both eyes and all related structures Eyelids: eyelids normal Conjunctivae: conjunctivae normal Pupils: PERRL EOM: EOM intact bilaterally Neck Neck: normal visual inspection and full ROM Chest Chest inspection: normal inspection of the chest, symmetric chest movement and normal respiratory effort Auscultation: Bilateral: Clear to Auscultation Cardio Palpation: normal PMI Rate: regular rate Rhythm: regular rhythm Heart sounds: S1 normal and S2 normal; negative rub, gallop or murmur GI GI: obese Neuro General: alert, awake and oriented x3 Skin Skin: no rashes or lesions noted Extremities Pulses: Normal: Right Posterior Tibial Pulse, Left Posterior Tibial Pulse, Right Radial Pulse, Left Radial Pulse Lower Extremity Edema: None: Bilateral Psych Psychological: normal affect Assessment & Plan 1. Bilateral carotid artery stenosis I65.23 Plan His most recent carotid duplex ultrasound from 07/27/18 showed Interpretation Summary Severe (>70%) stenosis right extracranial internal carotid. Moderate (50-69%) stenosis left extracranial internal carotid. Flow within the vertebral arteries is antegrade bilaterally. This report will be forwarded to primary vascular surgeon, Dr. Cowan. 2. Shortness of breath R06.02 Plan Patient continues to have shortness of breath on exertion. His most recent echocardiogram from June 2018 showed ejection fraction of 60%. This will be further assessed with a heart catheterization. Based on results further recommendation will be made. 3. Chronic diastolic (congestive) heart failure I50.32 Plan As noted above his most recent echocardiogram showed ejection fraction of 60%. He will continue with beta-mariana and KRISTA inhibitor. We will continue to monitor. 4. Atherosclerosis of lummi coronary artery of lummi heart without angina pectoris I25.10 PTCA/BMS to distal RCA 06/22/08 Plan Patient continues to have shortness of breath and exertional fatigue, and no chest pain. He states that his fatigue is very similar to fatigue prior to stenting in 2008. Because of his on going symptoms he will undergo a heart catheterization to further assess progressive coronary artery disease. Based on results further recommendation will may be made. He does have a listed allergy to Plavix which resulted in nausea. Because of this, he will remain on aspirin and begin Brilinta therapy. 5. Presence of stent in coronary artery Z95.5 PTCA/BMS to distal RCA 06/22/08 Plan He was reminded of the importance of risk factor and lifestyle modification. He acknowledged understanding. Plan Detail Additional Comments Thank you for allowing us to participate in the patient's plan of care, if you have any questions please do not hesitate to call. This note was generated using a voice recognition system and there may be incorrect words, spelling, or punctuation that were not noted upon reviewing the office note prior to saving. Coding Level of Care Code Off vis,est,level 3 Diagnoses Bilateral carotid artery stenosis I65.23 Shortness of breath R06.02 ??Dyspnea type: shortness of breath Chronic diastolic (congestive) heart failure I50.32 Atherosclerosis of lummi coronary artery of lummi heart without angina pectoris I25.10 ??[place] vs. transplanted heart: lummi heart Presence of stent in coronary artery Z95.5 Coding Level of Care Code Off vis,est,level 3 Diagnoses Bilateral carotid artery stenosis I65.23 Shortness of breath R06.02 ??Dyspnea type: shortness of breath Chronic diastolic (congestive) heart failure I50.32 Atherosclerosis of lummi coronary artery of lummi heart without angina pectoris I25.10 ??[place] vs. transplanted heart: lummi heart Presence of stent in coronary artery Z95.5 Supplemental Info Supplemental Information Echocardiogram from 07/23/18: Interpretation Summary The study was technically difficult. Contrast injection was performed. Based upon the 2D echocardiographic and contrast enhanced images obtained there appears to be grossly normal left ventricular size, wall motion, and systolic function. The estimated ejection fraction is 60 %. The left atrium is mildly enlarged. There is mild mitral annular calcification. Extension of the mitral annular calcification onto the posterior mitral valve leaflet. Trivial mitral valve insufficiency. Trivial tricuspid valve insufficiency. Mild focal aortic valve calcification. Unable to estimate RV systolic pressure/pulmonary artery pressure due to technically difficult study. Diastolic function is indeterminate. Carotid duplex ultrasound from 07/27/18: Interpretation Summary Severe (>70%) stenosis right extracranial internal carotid. Moderate (50-69%) stenosis left extracranial internal carotid. Flow within the vertebral arteries is antegrade bilaterally. He did have a pharmacologic stress nuclear imaging study performed on 01/04/2016. The report it stated he had normal pharmacologic myocardial perfusion stress test with preserved ejection fraction with a reported gated LVEF of 51%. He had a diagnostic cardiac catheterization performed at [facility] on 12/18/2010. The results are as noted below. Final impression: 1. Elevated left ventricular end diastolic pressure compatible decreased diastolic compliance 2. Left ventricle: A. Normal left ventricular size, wall motion, and systolic function B. Estimated LVEF of 55?/a 3. Left main coronary: A. Angiographically normal 4. Left anterior descending coronary artery: A. Diffuse minimal luminal irregularities 5. Left circumflex coronary artery: A. Diffuse minimal luminal irregularities 6. Intermediate ramus coronary artery: A. Angiographically normal 7. Right coronary artery: A. Large dominant vessel B. Proximal and distal diffuse minimal luminal irregularities C. MID stent (BMS) patent with minimal luminal irregularities His previous PCI was performed at [facility] in [place], [place] on 06/22/2008. The results are as noted below. FINDINGSi I. HEMODYNAMIC DATA ? Left Heart Pressures Left Ventricular: 140/20 mmHg Aortic: 140/80 mmHg No aortic pullback gradient. I. CORONARY ARTERIOGRAMS ? Left Main Coronary Artery: Normal. ? Left Anterior Descending Coronary Artery: The left anterior descending shows mild luminal uregulaxitics but is otherwise pateni Left Circumflex Coronary Artery: The circumflex system consists of a large ramus intennedius which shows mild luininal irregularities but no focal irregularity. The circumflex system is noadominant with mild hanen irregularities. Right Coronary Artery: The right coronary artery is very tortuous, There is slightly anterior takeoff and it takes off somewhat low in the sinus of Valsalva. It is a tortuous vessel with a thrombotic 95% lesion distally. LEFT VENTRJCULOORAM Venn?iculography (performed at thc end of the procedure reveals moderate inferior wall hypokinesis involving the inferobase and mid inferior wall. The estimated ejection fraction is 45%. No mitral insufficiency is noted. DESCRIPTION OF CORONARY ANGIOPLASTY: We initially thed a JR4 guiding catheter and because of tortuosity we traded out to try an AR2 guide. However, the AR2 guide was difficult to place coaxial into the RCA and we traded back in for the 3R4. With the 3R4 I was able to pass a soft Asahi wire carefully beyond the lesion although it would not pass into the most distal portion of the vessel. A trinity wire technique was used and we were able, with a BMW wire, to place the BMW into the PDA and the soft Asahi into the distal AV groove. Diagnostics Electrocardiogram 07/17/18 Echocardiogram 07/23/18 Chest X-Ray 08/03/18 Pulmonary Pulmonary Function Test 06/19/18 Pulmonary Exercise Test 06/24/18
[2018-08-10 07:27] VITALS: BMI 39.3
--- NOTE | 2018-08-11 10:39 | CL.D_ITS ---
Patient Name: ARON AMES Study Date: 08/11/2018 Performing: Ramiro Waldron MD Ht: 72.04 inches 183 cm : 1950 Wt: 291.01 lbs 132 kg Age: 68 Gender: male BSA: 2.5 PROCEDURE(S) PERFORMED PH06-DPU/COR/LV CLINICAL PROFILE AND INDICATIONS Indications: Suspected CAD Heart Failure: None Stress/Imaging Stress/Image Study Performed: No Angina Classification Anginal Classification w/in 2 Weeks: CCS III CAD Presentations: Other: Dyspnea: angina pectoris equivalent CONCLUSIONS Elevated Left Ventricular End Diastolic Pressure Segmented LV systolic dysfunction- Mild LVEF: by LV gram 55 % [place] Multivessel CAD RECOMMENDATIONS Risk factor modification Medical therapy DESCRIPTION OF PROCEDURE The patient arrived to the procedure lab. The risks and benefits of the procedure as well as a full d escription of our services here and current unavailability of surgical backup were fully explained to the patient and/or their significant other prior to the catheterization. The Timeout was completed, verifying the correct patient and procedure. The patient's procedural site was prepped and draped in the usual fashion. Local anesthetic was given subcutaneously to right radial region with Lidocaine 2% . Using a modified Seldinger technique, arterial access was obtained via the right radial artery, a 6 Fr sheath was inserted. Right Coronary Artery selective angiography was then performed in multiple v iews using a 5 Fr. 4.0 [place] catheter. Left Coronary Artery selective angiography was performed in mu ltiple views using a 5 Fr. 4.0 [place] catheter. Left Ventriculography was performed in MORFIN projection using a 5 Fr. Pigtail catheter. LV to AO pullback pressures were then recorded.The arterial sheath was pulled and a TR Band was applied for hemostasis CORONARY ANGIOGRAPHY DOMINANCE: Right Dominant LEFT HEART ASSESSMENT Left Ventricular Ejection Fraction: by LV Gram 55 % Inferior Mid Hypokinesis - Mild Elevated Left Ventricular End Diastolic Pressure LVEDP: 27 mmHg LEFT MAIN: Angiographically normal LEFT ANTERIOR DECENDING ARTERY: Mild luminal irregularities CIRCUMFLEX ARTERY: Mild luminal irregularities RAMUS: Angiographically normal RIGHT CORONARY ARTERY: Mild luminal irregularities MID RCA: Previously placed stent is patent RT PLV: is occluded and fills via left to right collateral flow RIGHT AV SEGMENT: is occluded and fills via left to right collateral flow COLLATERAL FLOW: Collateral flow from Left to Right VALVE FINDINGS: Normal Aortic Valve function Normal Mitral Valve function AORTIC ROOT: Angiographically normal COMPLICATIONS No Complications PROCEDURE MEDICATIONS Versed 1 mg IV Fentanyl 50 mcg IV Versed 1 mg IV Fentanyl 50 mcg IV Oxygen: 2 L/min via nasal cannula Heparin diluted in 23cc Heparinized saline. Patient given 10cc IA of this solution. 08/11/2018 09:53: 47 Verapamil 2.5mg, Ntg 100mcgs, 2000 units of Heparin diluted in 23cc Heparinized saline. Patient give n 10cc IA of this solution. 08/11/2018 09:53:47 SUMMARY OF HEMODYNAMIC DATA Time AIR REST ECG 07:38:26 AO 97/45 (67) SA 09:58:19 LV 137/1, 27 10:10:45 LV 124/13, 27 10:10:51 LV 116/10, 25 10:11:53 LV 125/13, 26 10:12:01 LVp 120/17, 29 10:12:10 AOp 123/59 (88) 10:12:15 Signed By Ramiro Waldron MD On 08/11/2018 10:38:30 Ramiro Waldron MD
== END 2018-08-11 13:05 | disposition home or self-care (01) ==
PROVIDERS: Family Provider Family Medicine Geriatric Medicine; PCP Family Medicine Geriatric Medicine; Referring Provider Internal Medicine Cardiovascular Disease; Visit Provider Internal Medicine Cardiovascular Disease
DX: I25.10 Atherosclerotic heart disease of native coronary artery without angina pectoris (principal); I65.23 Occlusion and stenosis of bilateral carotid arteries; I11.0 Hypertensive heart disease with heart failure; I50.32 Chronic diastolic (congestive) heart failure; R06.02 Shortness of breath; E78.5 Hyperlipidemia, unspecified; G47.33 Obstructive sleep apnea (adult) (pediatric); J44.9 Chronic obstructive pulmonary disease, unspecified; I71.4 Abdominal aortic aneurysm, without rupture; E11.9 Type 2 diabetes mellitus without complications; Z79.4 Long term (current) use of insulin; I25.2 Old myocardial infarction; I49.1 Atrial premature depolarization; I49.3 Ventricular premature depolarization; F31.9 Bipolar disorder, unspecified; F41.0 Panic disorder [episodic paroxysmal anxiety]; B18.1 Chronic viral hepatitis B without delta-agent; E66.9 Obesity, unspecified; Z68.39 Body mass index [BMI] 39.0-39.9, adult; Z95.5 Presence of coronary angioplasty implant and graft; Z79.82 Long term (current) use of aspirin; Z79.01 Long term (current) use of anticoagulants; Z79.899 Other long term (current) drug therapy; Z87.891 Personal history of nicotine dependence; Z85.118 Personal history of other malignant neoplasm of bronchus and lung
CPT/HCPCS: 93458; 99152; 99153; J7040; C1769; C1894; Q9967

== ENCOUNTER → 2018-08-31 | Outpatient (CLI) | payer MEDICARE, SELFPAY ==
[2018-08-19 07:21] VITALS: BMI 39.3
[2018-08-31 17:05] LABS: Absolute Neutrophil Count 3.8 X10^3/uL (2.0-7.7); Basophil# 0.02 X10^3/uL; Basophil% 0.3 % (0-1); Eosinophil# 0.22 X10^3/uL; Eosinophils% 3.1 % (0-5); Hematocrit 43.5 % (40-54); Hemoglobin 14.1 g/dl (13.0-16.5); Lymphocyte % 32.5 % (19-41); Mean Corp Hgb Conc 32.4 g/gl (32-36); Mean Corpuscular Hgb 25.8 pg (27.0-32.0); Mean Corpuscular Volume 79.7 fL (80-94); Monocyte# 0.69 X10^3/uL; Monocyte% 9.8 % (0-10); Neutrophil # 3.83 X10^3/uL (2.7-7.7); Neutrophil % 54.2 % (47-70); Platelet Count 219 K/mm3 (150-450); RBC Distribution Width CV 13.2 % (11.6-14.6); Red Blood Count 5.46 M/mm3 (4.6-6.2); White Blood Count 7.1 K/mm3 (4.4-11.0)
[2018-08-31 17:06] LABS: POSITIVE COUNT NO; POSITIVE DIFFERENTIAL NO; POSITIVE MORPHOLOGY NO
[2018-08-31 17:19] LABS: Vitamin D,25 Hydroxy 8.9 ng/mL (29.95-100.01)
[2018-08-31 19:50] LABS: BUN 17 mg/dL (7-18); Creatinine, Serum 1.31 mg/dL (0.70-1.30); Glucose 241 mg/dL (74-106)
[2018-08-31 19:51] LABS: Albumin, Serum 3.4 g/dL (3.2-5.0); Alkaline Phosphatase 72 U/L (45-117); Anion Gap 11 (5-15); Calcium,Total 8.9 mg/dL (8.5-10.1); Chloride 102 mmol/L (98-107); Sodium Level 139 mmol/L (136-145); Thyroid Stim Hormone (TSH) 1.17 uIU/mL (0.358-3.74)
[2018-08-31 20:09] LABS: ALB/GLOB Ratio 0.8 RATIO (0.9-2.4); AST(SGOT) 31 U/L (15-37); Alanine Aminotransfer ALT/SGPT 57 U/L (16-61); EST Glomerular Filtration Rate 58 mL/min (>60); Est Glom Filt Rate - Afr Amer 70 mL/min (>60); Potassium 4.8 mmol/L (3.5-5.1); Protein, Total 7.4 g/dL (6.4-8.2)
== END | disposition home or self-care (01) ==
LOC: POLAB3 14:15
PROVIDERS: Family Provider Family Medicine Geriatric Medicine; PCP Family Medicine Geriatric Medicine; Visit Provider Family Medicine Geriatric Medicine
DX: E11.9 Type 2 diabetes mellitus without complications (principal); E55.9 Vitamin D deficiency, unspecified; I10 Essential (primary) hypertension
CPT/HCPCS: 36415; 80053; 82306; 84443; 85025

== ENCOUNTER → 2019-01-25 15:52 | Outpatient (CLI) | payer MEDICARE, SELFPAY ==
[2018-09-02 13:42] VITALS: BMI 38.6
[2019-01-25 16:42] LABS: Absolute Lymphocyte Count 2.79 X10^3/uL (0.83-4.51); Absolute Neutrophil Count 4.9 X10^3/uL (2.0-7.7); Basophil# 0.04 X10^3/uL; Basophil% 0.5 % (0-1); Eosinophils% 2.3 % (0-5); Hematocrit 45.6 % (40-54); Lymphocyte # 2.79 X10^3/ul (4.0); Lymphocyte % 31.8 % (19-41); Mean Corp Hgb Conc 32.9 g/dL (32-36); Mean Corpuscular Volume 82.2 fL (80-94); Mean Platelet Vol. 11.3 fl (6.2-12.0); Monocyte% 9.1 % (0-10); NRBC Flagged by Analyzer 0 % (0-5); Neutrophil # 4.91 X10^3/uL (2.7-7.7); Neutrophil % 56.1 % (47-70); Platelet Count 161 K/mm3 (150-450); RBC Distribution Width CV 13.2 % (11.6-14.6); RBC Distribution Width SD 39.4 fl (35.1-43.9); Red Blood Count 5.55 M/mm3 (4.6-6.2); White Blood Count 8.8 K/mm3 (4.4-11.0)
[2019-01-25 18:29] LABS: ALB/GLOB Ratio 0.9 RATIO (0.9-2.4); AST(SGOT) 35 U/L (15-37); Alanine Aminotransfer ALT/SGPT 63 U/L (16-61); Albumin, Serum 3.6 g/dL (3.2-5.0); Alkaline Phosphatase 88 U/L (45-117); Anion Gap 8 (5-15); BUN 18 mg/dL (7-18); BUN/Creat Ratio 13.3 RATIO (10-20); Calcium,Total 8.9 mg/dL (8.5-10.1); Chloride 103 mmol/L (98-107); Creatinine, Serum 1.35 mg/dL (0.70-1.30); EST Glomerular Filtration Rate 56 mL/min (>60); Est Glom Filt Rate - Afr Amer 67 mL/min (>60); Glucose 310 mg/dL (74-106); PSA,Total - Annual Screen 0.88 ng/mL (0.00-4.00); Potassium 5.1 mmol/L (3.5-5.1); Protein, Total 7.6 g/dL (6.4-8.2); Sodium Level 135 mmol/L (136-145); Thyroid Stim Hormone (TSH) 1.08 uIU/mL (0.358-3.74)
== END ==
PROVIDERS: Family Provider Family Medicine Geriatric Medicine; PCP Family Medicine Geriatric Medicine; Visit Provider Family Medicine Geriatric Medicine
DX: E11.9 Type 2 diabetes mellitus without complications (principal); E55.9 Vitamin D deficiency, unspecified; I10 Essential (primary) hypertension; Z12.5 Encounter for screening for malignant neoplasm of prostate
CPT/HCPCS: 36415; 80053; 82306; 84153; 84443; 85025; G0103

== ENCOUNTER → 2019-02-02 07:57 | Outpatient (CLI) | payer MEDICARE, SELFPAY ==
[2018-09-02 13:42] VITALS: BMI 38.6
--- NOTE | 2019-02-02 08:03 | US_ITS ---
EXAM DESCRIPTION: Abdominal aortic ultrasound CLINICAL HISTORY: 68 years Male, follow-up of abdominal aortic aneurysm. COMPARISON: CTA of the abdomen and pelvis obtained on 09/08/2017 TECHNIQUE: Serial longitudinal and transverse scans of the abdominal aorta were obtained utilizing a real-time sector scanner. FINDINGS: The proximal abdominal aorta appears to be normal in size shape and configuration. There is an infrarenal abdominal aortic aneurysm which measures 3.47 x 3.50 cm in maximal AP and transverse dimension and is unchanged when compared with the previous CTA of the abdominal aorta obtained on 09/08/2017. This infrarenal abdominal aortic aneurysm measures approximately 3.8 cm in length. US/Aorta IMPRESSION: A fusiform infrarenal abdominal aortic aneurysm is again identified which is unchanged from the previous CTA of the abdomen and pelvis obtained on 09/08/2017. AAA Size: Follow-up Recommendation (1): 3.5 - 3.9 cm Every 12 months (1)Based upon the Society for Vascular Surgery Guidelines: J Vasc Surg. 2009 Oct;50(4 Suppl):S2-49 (2)For aortas of max magdi of 2.6-2.9 cm that meet criteria for AAA (>= 1.5 x proximal normal segment) Electronically Signed: Neno Pan, at 17:09 EDT Tel , Service support ,
== END ==
PROVIDERS: Family Provider Family Medicine Geriatric Medicine; PCP Family Medicine Geriatric Medicine; Referring Provider Family Medicine Geriatric Medicine; Visit Provider Family Medicine Geriatric Medicine
DX: I71.4 Abdominal aortic aneurysm, without rupture (principal)
CPT/HCPCS: 76775

== ENCOUNTER → 2019-04-29 15:24 | Outpatient (CLI) | payer MEDICARE, SELFPAY ==
[2018-09-02 13:42] VITALS: BMI 38.6
[2019-04-29 17:22] LABS: Absolute Lymphocyte Count 3.03 X10^3/uL (0.83-4.51); Absolute Neutrophil Count 4.5 X10^3/uL (2.0-7.7); Basophil# 0.06 X10^3/uL; Basophil% 0.7 % (0-1); Eosinophil# 0.19 X10^3/uL; Eosinophils% 2.2 % (0-5); Hematocrit 45.8 % (40-54); Hemoglobin 14.7 g/dL (13.0-16.5); Lymphocyte # 3.03 X10^3/ul (4.0); Lymphocyte % 35.6 % (19-41); Mean Corp Hgb Conc 32.1 g/dL (32-36); Mean Corpuscular Hgb 26.3 pg (27.0-32.0); Mean Corpuscular Volume 81.9 fL (80-94); Mean Platelet Vol. 11.1 fl (6.2-12.0); Monocyte# 0.75 X10^3/uL; Monocyte% 8.8 % (0-10); NRBC Flagged by Analyzer 0 % (0-5); Neutrophil # 4.46 X10^3/uL (2.7-7.7); Neutrophil % 52.5 % (47-70); Platelet Count 207 K/mm3 (150-450); RBC Distribution Width CV 13.2 % (11.6-14.6); RBC Distribution Width SD 39.2 fl (35.1-43.9); Red Blood Count 5.59 M/mm3 (4.6-6.2); White Blood Count 8.5 K/mm3 (4.4-11.0)
[2019-04-29 17:50] LABS: Vitamin D,25 Hydroxy 11.6 ng/mL (29.95-100.01)
[2019-04-29 18:03] LABS: ALB/GLOB Ratio 0.8 RATIO (0.9-2.4); AST(SGOT) 41 U/L (15-37); Alanine Aminotransfer ALT/SGPT 66 U/L (16-61); Albumin, Serum 3.4 g/dL (3.2-5.0); Alkaline Phosphatase 71 U/L (45-117); Anion Gap 7 (5-15); BUN 21 mg/dL (7-18); BUN/Creat Ratio 15.9 RATIO (10-20); Chloride 102 mmol/L (98-107); Creatinine, Serum 1.32 mg/dL (0.70-1.30); EST Glomerular Filtration Rate 57 mL/min (>60); Est Glom Filt Rate - Afr Amer 69 mL/min (>60); Globulin 4.3 g/dL (2.2-4.2); Glucose 241 mg/dL (74-106); Potassium 4.7 mmol/L (3.5-5.1); Protein, Total 7.7 g/dL (6.4-8.2); Sodium Level 137 mmol/L (136-145); Thyroid Stim Hormone (TSH) 1.18 uIU/mL (0.358-3.74)
== END ==
PROVIDERS: Family Provider Family Medicine Geriatric Medicine; PCP Family Medicine Geriatric Medicine; Visit Provider Family Medicine Geriatric Medicine
DX: E11.9 Type 2 diabetes mellitus without complications (principal); E55.9 Vitamin D deficiency, unspecified; I10 Essential (primary) hypertension
CPT/HCPCS: 36415; 80053; 82306; 84443; 85025

== ENCOUNTER → 2019-06-04 12:25 | Outpatient (CLI) | payer MEDICARE, MEDICAID, SELFPAY ==
[2018-09-02 13:42] VITALS: BMI 38.6
--- NOTE | 2019-06-04 12:30 | CDU_ITS ---
Reason For Study: Carotid artery stenosis Rt. Velocities/BP Lt. Velocities/BP Prox CCA 75.3/16.3 cm/sec. Prox CCA 140.5/24.1 cm/sec. Mid CCA 71.6/16.3 cm/sec. Mid CCA 143.1/26.7 cm/sec. Dist CCA 256.3/52.7 cm/sec. Dist CCA 161.3/26.7 cm/sec. Prox ICA 169.1/39.8 cm/sec. Prox ICA 236.9/39.8 cm/sec. Mid ICA 204.6/39.8 cm/sec. Mid ICA 201.4/39.8 cm/sec. Dist ICA 149.7/23.6 cm/sec. Dist ICA 130.2/31.4 cm/sec. Rt. ICA/CCA = 2.72. Lt. ICA/CCA = 1.66. Prox ECA 287.3/32.5 cm/sec. Prox ECA 179.4/16.3 cm/sec. Rt. Vert. 70/13.3 cm/sec. Lt. Vert. 66.3 cm/sec. Right Extracranial There is heterogeneous, irregular atherosclerotic plaque noted in the right common carotid artery. There is heterogeneous, irregular atherosclerotic plaque noted in the right internal carotid artery. There is heterogeneous, irregular atherosclerotic plaque noted in the right external carotid artery. Antegrade flow is noted in the right vertebral artery. Left Extracranial There is heterogeneous, irregular atherosclerotic plaque noted in the left common carotid artery. There is heterogeneous, irregular atherosclerotic plaque noted in the left internal carotid artery. There is heterogeneous, irregular atherosclerotic plaque noted in the left external carotid artery. Antegrade flow is noted in the left vertebral artery. Procedure Carotid Duplex [id number]. Unable to demonstrate similar velocities in the right ICA as compared to previous study done on 07/27/18. Rt ICA prox 337.7/79.4 cm/sec, mid 263.4/44.2 cm/sec. Exam performed in department. Interpretation Summary Severe (>70%) stenosis right extracranial internal carotid. Moderate (50-69%) stenosis left extracranial internal carotid. Flow within the vertebral arteries is antegrade bilaterally. Ordering Physician: Kevin Cowan Referring Physician: Bruce Calvillo Chi Performed By: Nyasia Franklin RVT
== END ==
PROVIDERS: PCP Family Medicine Geriatric Medicine; Referring Provider Surgery Vascular Surgery; Visit Provider Surgery Vascular Surgery
DX: I65.23 Occlusion and stenosis of bilateral carotid arteries (principal); M79.606 Pain in leg, unspecified; C34.90 Malignant neoplasm of unspecified part of unspecified bronchus or lung; Z87.891 Personal history of nicotine dependence; E78.00 Pure hypercholesterolemia, unspecified; I10 Essential (primary) hypertension; I25.2 Old myocardial infarction; E11.59 Type 2 diabetes mellitus with other circulatory complications; I71.4 Abdominal aortic aneurysm, without rupture
CPT/HCPCS: 93880

== ENCOUNTER → 2019-07-13 07:49 | Outpatient (CLI) | payer MEDICARE, MEDICAID, SELFPAY ==
[2019-06-07 08:08] VITALS: BMI 38.0
--- NOTE | 2019-07-13 14:57 | PFTCOMP ---
COMPLETE PULMONARY FUNCTION TEST INTERPRETATION Brief HPI: Patient is a 69 year old male, currently under the care of myself, who presents to [facility] for complete pulmonary function tests secondary to diagnosis of COPD. Respiratory therapist reports good effort and reproducible results. Interpretation: Forced expiration spirometry shows a severe large airways obstructive ventilatory defect with an FEV1 of 47% predicted. There is a significant bronchodilator response in FEV1 by strict ATS criteria. Spirograms are of good quality and plateau slowly, indicating slowly emptying areas of the lungs. The respiratory flow volume loop shows decreased expiratory flow rates at all lung volumes consistent with airway obstruction. Lung volumes by body plethysmography show a decreased total lung capacity at 5.48 L, 78% predicted. All other lung volumes are reduced symmetrically. Diffusion capacity by carbon monoxide is decreased at 56% predicted. The airway resistance is elevated. Compared to previous pulmonary function tests from 06/18/2018, there has been no significant change. Impression: Partially reversible severe mixed ventilatory defect with a symmetric reduction diffusing capacity, but relative stability compared to May 2018
== END ==
PROVIDERS: PCP Family Medicine Geriatric Medicine; Referring Provider Internal Medicine Critical Care Medicine; Visit Provider Internal Medicine Critical Care Medicine
DX: J44.9 Chronic obstructive pulmonary disease, unspecified (principal)
CPT/HCPCS: 94060; 94726; 94729

== ENCOUNTER → 2019-07-14 08:41 | Outpatient (CLI) | payer MEDICARE, MEDICAID, SELFPAY ==
[2019-06-07 08:08] VITALS: BMI 38.0
[2019-07-14 09:07] VITALS: PULSE 71; PULSE 72; PULSE 74; PULSE 76; PULSE 79; PULSE 80; PULSE 84; PULSE 97; O2SAT 90; O2SAT 91; O2SAT 92; O2SAT 94; O2SAT 95
--- NOTE | 2019-07-14 09:09 | CPS ---
Patient states he has oxygen in his car and at home. He states he only wears his oxygen when he feels like he can't breath. Patient states his SOB gets so bad he has to sit. Patient pushed wheelchair during walk and had to sit continuos minute 2-4.
--- NOTE | 2019-07-15 05:51 | WT_ITS ---
PSN 6 Minute Walk Test - 6 Minute Walk Test 6 Minute Walk Test: 6 Minute Walk Test PSN:6-Minute Walk Test Start: 07/14/19 09:07 Freq: Status: Active Protocol: [id number] Document 07/14/19 09:07 NICOLE (Rec: 07/14/19 09:13 [facility] [id number]) 6 Minute Walk Test Date Performed 07/14/19 Time Performed 08:49 Height 6 ft Weight: 127.006 kg Weight in Pounds 280.[address]: Walt Finley Assistive device used: None Pre-test Oxygen Delivery Method Room Air Pulse Ox (%) 90 Pulse Rate (60-100 beats/min) 74 Dyspnea Aiyana Scale (0-10) 0 Exertion Aiyana Scale (6-20) 11 1st minute Oxygen Delivery Method Room Air Pulse Ox (%) 95 Pulse Rate (60-100 beats/min) 97 2nd minute Oxygen Delivery Method Room Air Pulse Ox (%) 92 Pulse Rate (60-100 beats/min) 80 Number of Rests Taken 1 3rd minute Oxygen Delivery Method Room Air Pulse Ox (%) 91 Pulse Rate (60-100 beats/min) 76 Number of Rests Taken 1 4th minute Oxygen Delivery Method Room Air Pulse Ox (%) 94 Pulse Rate (60-100 beats/min) 72 Number of Rests Taken 1 5th minute Oxygen Delivery Method Room Air Pulse Ox (%) 94 Pulse Rate (60-100 beats/min) 79 6th minute Oxygen Delivery Method Room Air Pulse Ox (%) 91 Pulse Rate (60-100 beats/min) 84 Post-test Oxygen Delivery Method Room Air Pulse Ox (%) 94 Pulse Rate (60-100 beats/min) 71 Dyspnea Aiyana Scale (0-10) 6 Exertion Aiyana Scale (6-20) 12 Full Laps Walked 8 Partial Lap, Number of Tiles Walked 6 Total Distance Walked (ft) 478 07/14/19 09:09 Cardiopulmonary Services by Nyasia Parks Patient states he has oxygen in his car and at home. He states he only wears his oxygen when he feels like he can't breath. Patient states his SOB gets so bad he has to sit. Patient pushed wheelchair during walk and had to sit continuos minute 2-4. Initialized on 07/14/19 09:09 - END OF NOTE - Interpretation Interpretation: The patient was noted to be 90% on room air at rest. The patient did not have any significant desaturation during testing, but did rest for 2 minutes in the middle of testing secondary to reported shortness of breath and used a wheelchair to complete ambulation thereafter. No significant tachycardia was noted. In total, patient traveled 478 feet indicating musculoskeletal limitation exercise tolerance. - Recommendations Recommendations: No supplemental oxygen is indicated at this time. However, testing is suspect given minimal distance traveled.
== END ==
PROVIDERS: PCP Family Medicine Geriatric Medicine; Referring Provider Internal Medicine Critical Care Medicine; Visit Provider Internal Medicine Critical Care Medicine
DX: J44.9 Chronic obstructive pulmonary disease, unspecified (principal)
CPT/HCPCS: 94618

== ENCOUNTER → 2019-09-27 16:03 | Outpatient (CLI) | payer MEDICARE, MEDICAID, SELFPAY ==
[2019-09-07 07:38] VITALS: BMI 38.6
[2019-09-27 16:59] LABS: Absolute Lymphocyte Count 3.29 X10^3/uL (0.83-4.51); Absolute Neutrophil Count 4.3 X10^3/uL (2.0-7.7); Basophil# 0.04 X10^3/uL; Basophil% 0.5 % (0-1); Eosinophil# 0.26 X10^3/uL; Eosinophils% 2.9 % (0-5); Hematocrit 44.2 % (40-54); Hemoglobin 14.2 g/dL (13.0-16.5); Lymphocyte # 3.29 X10^3/ul (4.0); Lymphocyte % 37.3 % (19-41); Mean Corp Hgb Conc 32.1 g/dL (32-36); Mean Corpuscular Hgb 25.6 pg (27.0-32.0); Mean Corpuscular Volume 79.8 fL (80-94); Mean Platelet Vol. 11.9 fl (6.2-12.0); Monocyte# 0.92 X10^3/uL; Monocyte% 10.4 % (0-10); NRBC Flagged by Analyzer 0 % (0-5); Neutrophil # 4.27 X10^3/uL (2.7-7.7); Neutrophil % 48.4 % (47-70); Platelet Count 189 K/mm3 (150-450); RBC Distribution Width CV 13.2 % (11.6-14.6); RBC Distribution Width SD 37.9 fl (35.1-43.9); Red Blood Count 5.54 M/mm3 (4.6-6.2); White Blood Count 8.8 K/mm3 (4.4-11.0)
[2019-09-27 17:25] LABS: ALB/GLOB Ratio 0.8 RATIO (0.9-2.4); AST(SGOT) 47 U/L (15-37); Alanine Aminotransfer ALT/SGPT 76 U/L (16-61); Albumin, Serum 3.2 g/dL (3.2-5.0); Alkaline Phosphatase 59 U/L (45-117); Anion Gap 9 (5-15); BUN 18 mg/dL (7-18); BUN/Creat Ratio 15.1 RATIO (10-20); Calcium,Total 8.8 mg/dL (8.5-10.1); Chloride 101 mmol/L (98-107); Creatinine, Serum 1.19 mg/dL (0.70-1.30); EST Glomerular Filtration Rate 64 mL/min (>60); Est Glom Filt Rate - Afr Amer 78 mL/min (>60); Glucose 250 mg/dL (74-106); Potassium 4.3 mmol/L (3.5-5.1); Protein, Total 7.2 g/dL (6.4-8.2); Sodium Level 138 mmol/L (136-145); Thyroid Stim Hormone (TSH) 0.82 uIU/mL (0.358-3.74)
[2019-09-27 17:57] LABS: Vitamin D,25 Hydroxy 13.8 ng/mL
== END ==
PROVIDERS: PCP Family Medicine Geriatric Medicine; Visit Provider Family Medicine Geriatric Medicine
DX: E11.9 Type 2 diabetes mellitus without complications (principal); E55.9 Vitamin D deficiency, unspecified; I10 Essential (primary) hypertension
CPT/HCPCS: 36415; 80053; 82306; 84443; 85025

== ENCOUNTER 2019-10-13 20:40 | Inpatient (IN) | payer MEDICARE, MEDICAID, SELFPAY ==
[2019-09-07 07:38] VITALS: BMI 38.6
[2019-10-13 21:05] VITALS: BMI 38.6
[2019-10-13 22:00] VITALS: BP 154/66; PULSE 67; RESP 16; TEMP 37; O2SAT 100; BMI 38.6
[2019-10-13 22:28] VITALS: BMI 38.7
[2019-10-13 22:34] VITALS: BP 152/69; PULSE 65; RESP 16; TEMP 36.9; O2SAT 100
[2019-10-13] MEDS: Chlorhexidine 480 ML 15 ML PO (22:40)
[2019-10-13 22:41] VITALS: PULSE 64
[2019-10-13] MEDS: Metoprolol Tartrate 25 MG Tablet 12.5 MG PO (22:41)
[2019-10-13 23:00] VITALS: O2SAT 97
[2019-10-13 23:05] LABS: Bedside Glucose 137 mg/dL (70-110)
[2019-10-14 06:02] LABS: Absolute Lymphocyte Count 2.12 X10^3/uL (0.83-4.51); Absolute Neutrophil Count 4.1 X10^3/uL (2.0-7.7); Basophil# 0.06 X10^3/uL; Basophil% 0.8 % (0-1); Eosinophil# 0.55 X10^3/uL; Eosinophils% 7.2 % (0-5); Hematocrit 35.2 % (40-54); Hemoglobin 10.8 g/dL (13.0-16.5); Lymphocyte # 2.12 X10^3/ul (4.0); Lymphocyte % 27.8 % (19-41); Mean Corp Hgb Conc 30.7 g/dL (32-36); Mean Corpuscular Hgb 25.8 pg (27.0-32.0); Mean Platelet Vol. 10.8 fl (6.2-12.0); Monocyte# 0.73 X10^3/uL; Monocyte% 9.6 % (0-10); NRBC Flagged by Analyzer 0 % (0-5); Neutrophil # 4.14 X10^3/uL (2.7-7.7); Neutrophil % 54.2 % (47-70); Platelet Count 187 K/mm3 (150-450); RBC Distribution Width CV 14.2 % (11.6-14.6); RBC Distribution Width SD 42.3 fl (35.1-43.9); Red Blood Count 4.19 M/mm3 (4.6-6.2); White Blood Count 7.6 K/mm3 (4.4-11.0)
[2019-10-14 06:32] LABS: ALB/GLOB Ratio 0.8 RATIO (0.9-2.4); AST(SGOT) 29 U/L (15-37); Alanine Aminotransfer ALT/SGPT 48 U/L (16-61); Albumin, Serum 2.7 g/dL (3.2-5.0); Alkaline Phosphatase 50 U/L (45-117); Anion Gap 6 (5-15); BUN 18 mg/dL (7-18); BUN/Creat Ratio 17.8 RATIO (10-20); Calcium,Total 8.2 mg/dL (8.5-10.1); Chloride 104 mmol/L (98-107); Creatinine, Serum 1.01 mg/dL (0.70-1.30); EST Glomerular Filtration Rate 78 mL/min (>60); Est Glom Filt Rate - Afr Amer 94 mL/min (>60); Globulin 3.6 g/dL (2.2-4.2); Glucose 122 mg/dL (74-106); Phosphorus 3.3 mg/dL (2.5-4.9); Potassium 4.4 mmol/L (3.5-5.1); Protein, Total 6.3 g/dL (6.4-8.2); Sodium Level 139 mmol/L (136-145)
[2019-10-14 07:03] VITALS: O2SAT 95
[2019-10-14 07:20] LABS: Bedside Glucose 112 mg/dL (70-110)
[2019-10-14 07:26] LABS: Hemoglobin A1c 7.8 % (3.8-5.6)
[2019-10-14 08:35] VITALS: BP 156/72; PULSE 66; RESP 18; TEMP 36.9; O2SAT 98
[2019-10-14 08:38] VITALS: BP 156/72; PULSE 66
[2019-10-14] MEDS: Aspirin 81 MG TAB.CHEW PO (08:38)
[2019-10-14] MEDS: Metoprolol Tartrate 25 MG Tablet 12.5 MG PO ×2 (08:38→23:17)
[2019-10-14] MEDS: Chlorhexidine 480 ML 15 ML PO ×2 (08:39→23:17)
[2019-10-14] MEDS: Acetaminophen 325 MG Tablet 650 MG PO (08:51)
[2019-10-14] MEDS: Clopidogrel Bisulfate 75 MG Tablet PO (08:52)
[2019-10-14 10:49] VITALS: O2SAT 98
[2019-10-14 11:51] LABS: Bedside Glucose 157 mg/dL (70-110)
--- NOTE | 2019-10-14 12:30 | HP.PCM_ITS ---
Problem List (1) Chronic respiratory failure with hypoxia Status: Chronic Comment: on 2 LPM, follows up with Dr. Finley (2) Bipolar disorder Status: Chronic Qualifiers: Active/Remission status: in remission of unspecified degree Qualified Code(s): F31.70 - Bipolar disorder, currently in remission, most recent episode unspecified (3) History of hepatitis B Status: Chronic (4) History of tongue cancer Status: Chronic Comment: had a hemiglossectomy (5) Stage 2 moderate COPD by GOLD classification Status: Chronic (6) SUJEY (obstructive sleep apnea) Status: Chronic (7) Small cell carcinoma of lung Status: Chronic Comment: Has had a RUL lobectomy (8) Bilateral carotid artery stenosis Status: Chronic (9) Chronic diastolic (congestive) heart failure Status: Chronic (10) Hyperlipidemia Status: Chronic (11) Dyspnea Status: Chronic Qualifiers: Dyspnea type: dyspnea on exertion Qualified Code(s): R06.00 - Dyspnea, u nspecified (12) Old myocardial infarction Status: Chronic (13) Premature atrial contractions Status: Chronic (14) Premature ventricular contraction Status: Chronic (15) Postsurgical percutaneous transluminal coronary angioplasty (PTCA) status Status: Chronic Comment: PTCA/BMS to distal RCA 06/22/08 (16) Presence of stent in coronary artery Status: Chronic Comment: PTCA/BMS to distal RCA 06/22/08 (17) Atherosclerotic heart disease of [place] coronary artery without angina pectoris Status: Chronic Qualifiers: [place] vs. transplanted heart: [place] heart Qualified Code(s): I25.10 - Atherosclerotic heart disease of [place] coronary artery without angina pectoris Comment: PTCA/BMS to distal RCA 06/22/08 (18) Aneurysm of infrarenal abdominal aorta Status: Chronic (19) Benign essential hypertension Status: Chronic (20) Type 2 diabetes mellitus Status: Chronic Comment: uncontrolled. HGBA1C in September 2019 is 8.6% (21) Cerebrovascular accident, embolic Status: Acute Qualifiers: Precerebral and cerebral artery: middle cerebral artery Laterality of affected vessel: left Qualified Code(s): I63.412 - Cerebral infarction due to embolism of left middle cerebral artery (22) History of alcoholism Status: Resolved Comment: quit in (23) Aphasia Status: Acute Comment: Mixed expressive and receptive (24) Dysphagia Status: Acute Qualifiers: Dysphagia type: oropharyngeal phase Qualified Code(s): R13.12 - Dysphagia, oropharyngeal phase (25) Right sided weakness Status: Acute (26) Debility Status: Acute (27) Nontraumatic acute cerebral hemorrhage Status: Acute Comment: petechial hemorrhage in the L brain following embolic CVA to the left MCA M1 branch (28) Atrial fibrillation Status: Suspected (29) Cytotoxic brain edema Status: Resolved Comment: due to L MCA CVA (30) Morbid obesity Status: Chronic (31) Left atrial enlargement Status: Chronic (32) Anemia Status: Acute Qualifiers: Anemia type: unspecified type Qualified Code(s): D64.9 - Anemia, unspecified (33) History of left common carotid artery stent placement Status: Acute Comment: endovascular History of Present Illness Date of Admission: 10/13/19 Chief Complaint: Debility secondary to recent embolic CVA in the left middle cerebral artery M1 branch with petechial hemorrhage post CVA and with aphasia, R side weakness and dysphagia. The patient is a 69 year old M with a past medical history of hypertension, diabetes mellitus type 2, hyperlipidemia, morbid obesity, small cell lung cancer with right upper lobe lobectomy and several areas of excision left lung, cancer of the tongue with hemiglossectomy, bilateral carotid stenosis, chronic back pain, SUJEY, COPD/Gold 2 classification, chronic respiratory failure with hypoxia, infrarenal abdominal aortic aneurysm, history of bipolar disorder, chronic diastolic congestive heart failure, left atrial enlargement, old myocardial infarction, coronary artery disease, PTCA with stent in the right coronary artery on 06/22/2008, history of alcoholism (quit in the 1990s), history of illicit drug use in the 70s (quit in the ), anemia of uncertain etiology, suspected atrial fibrillation, recent endovascular L ICA/CCA stent and recent embolic left middle cerebral artery CVA with petechial hemorrhages post stroke. He was admitted to the [facility] at [facility] on 10/13/19 for post stroke debility including mixed aphasia, right-sided weakness and dysphagia for 3 hours of therapy daily to restore function at or near his level of independence prior to CVA. He lives in a house by himself and has no steps. He has elevated toilet seats but has no grab bars in the shower. He was not using an AD for ambulation prior to the recent stroke. He has never been and he has no children. He has a sister who lives close. Patrick tells me that prior to the stroke he was only able to ambulate 50 ft before he had to stop due to back pain and BL leg pain. Cardiac catheterization in July 2018 showed an ejection fraction of 55% with mild inferior hypokinesis. There was an increased left ventricular end- diastolic pressure at 27. The LAD had mild luminal irregularities and so did the circumflex artery. The ramus was angiographically normal. The RCA had mild luminal irregularities and the previously placed stent was patent. The right PLV was occluded and filled from left to right collateral flow. The right AV segment was occluded and filled via left to right collateral flow. Interpretation Summary-June 2018 The study was technically difficult. Contrast injection was performed. Based upon the 2D echocardiographic and contrast enhanced images obtained there appears to be grossly normal left ventricular size, wall motion, and systolic function. The estimated ejection fraction is 60 %. The left atrium is mildly enlarged. There is mild mitral annular calcification. Extension of the mitral annular calcification onto the posterior mitral valve leaflet. Trivial mitral valve insufficiency. Trivial tricuspid valve insufficiency. Mild focal aortic valve calcification. Unable to estimate RV systolic pressure/pulmonary artery pressure due to technically difficult study. Diastolic function is indeterminate. Tells me he slept well last night and he denies cephalgia, visual loss, N/V, diarrhea, constipation, chest pain. He does tell me that he gets palpitations and whenn he gets them he gets SOB. He also gets lightheaded. To his knowledge he has never had AF. He has never been on chronic anticoagulation. Does not check his blood sugars at home and does not follow a diet. Tells me that Dr. Calvillo checks his HGBA1C every 3 months but, the only other HGBA1C prior to today in the computer is from 2011? Also tells me that he sees Dr. Waldron 3-4 times a year and he has not seen Dr. Waldron since August of 2018? I suspect he is not very compliant at home. Past Medical History Past Medical History (Chronic Problems): Chronic Problems (Last Reviewed 10/14/19 @ 13:[address] Suzie Killian, DO) Chronic respiratory failure with hypoxia (Chronic) on 2 LPM, follows up with Dr. Finley Bipolar disorder (Chronic) History of hepatitis B (Chronic) History of tongue cancer (Chronic) had a hemiglossectomy Morbid obesity (Chronic) Left atrial enlargement (Chronic) Stage 2 moderate COPD by GOLD classification (Chronic) SUJEY (obstructive sleep apnea) (Chronic) Small cell carcinoma of lung (Chronic) Has had a RUL lobectomy Bilateral carotid artery stenosis (Chronic) Chronic diastolic (congestive) heart failure (Chronic) Hyperlipidemia (Chronic) Dyspnea (Chronic) Old myocardial infarction (Chronic) Premature atrial contractions (Chronic) Premature ventricular contraction (Chronic) Postsurgical percutaneous transluminal coronary angioplasty (PTCA) status (Chronic) PTCA/BMS to distal RCA 06/22/08 Presence of stent in coronary artery (Chronic ~06/22/08) PTCA/BMS to distal RCA 06/22/08 Atherosclerotic heart disease of [place] coronary artery without angina pectoris (Chronic) PTCA/BMS to distal RCA 06/22/08 Aneurysm of infrarenal abdominal aorta (Chronic) Benign essential hypertension (Chronic) Type 2 diabetes mellitus (Chronic) uncontrolled. HGBA1C in September 2019 is 8.6% Medical History: Medical History (Last Reviewed 10/14/19 @ 13:[address] Suzie Killian, DO) Chronic diastolic (congestive) heart failure (Chronic) I50.32 Hyperlipidemia (Chronic) E78.5 Dyspnea (Chronic) R06.00 Old myocardial infarction (Chronic) I25.2 Premature atrial contractions (Chronic) I49.1 Premature ventricular contraction (Chronic) I49.3 Atherosclerotic heart disease of [place] coronary artery without angina pectoris (Chronic) I25.10 PTCA/BMS to distal RCA 06/22/08 Aneurysm of infrarenal abdominal aorta (Chronic) I71.4 Benign essential hypertension (Chronic) I10 Type 2 diabetes mellitus (Chronic) E11.9 uncontrolled. HGBA1C in September 2019 is 8.6% Bipolar disorder F31.9 Depression F32.9 SUJEY (obstructive sleep apnea) G47.33 Panic disorder F41.0 Small cell carcinoma of left lung C34.92 COPD (chronic obstructive pulmonary disease) J44.9 Hepatitis B B19.10 History of lung cancer Z85.118 Lung nodule R91.1 Allergies Hguancu-Vbg-Rtt Reductase Inhibitor Allergy (Verified 09/07/19 08:27) Other hydrocodone [From Lortab] Adverse Reaction (Severe, Verified 09/07/19 08:27) UNKOWN tramadol [From Ultram] Adverse Reaction (Severe, Verified 05/12/20 08:27) UNKOWN zolpidem [From Ambien] Adverse Reaction (Severe, Verified 09/07/19 08:27) UNKOWN alprazolam [From Xanax] Adverse Reaction (Verified 09/07/19 08:27) Other HALLUCINATIONS loratadine Adverse Reaction (Verified 09/07/19 08:27) Unknown metformin Adverse Reaction (Verified 09/07/19 08:27) Abd cramps/diarrhea oxycodone [Oxycodone] Adverse Reaction (Verified 09/07/19 08:27) Itching oxycodone HCl [From Percocet] Adverse Reaction (Verified 09/07/19 08:27) Itching Penicillins Adverse Reaction (Verified 09/07/19 08:27) Vomiting Home Medications: Ambulatory Orders Medication Instructions Recorded metoprolol tartrate 50 mg tablet 12.5 mg PO BID tab 07/21/17 prednisone 20 mg tablet 10 mg PO BID PRN tab 07/17/18 Clopidogrel Bisulfate [Plavix] 75 mg PO DAILY 08/11/18 Albuterol Aerosols [Ventolin 2.5 mg INHALATION Q6H PRN PRN 10/13/19 Aerosols] Surgical History: Surgical History (Last Reviewed 10/14/19 @ 13:[address] Suzie Killian DO) Postsurgical percutaneous transluminal coronary angioplasty (PTCA) status (Chronic) Z98.61 PTCA/BMS to distal RCA 06/22/08 Presence of stent in coronary artery (Chronic) Onset Date: ~06/22/08 Z95.5 PTCA/BMS to distal RCA 06/22/08 History of lobectomy of lung Z90.2 Rt Lung 03/07/11 History of lung surgery Z98.890 Lt Lung History of cholecystectomy Onset Date: ~2011 Z90.49 History of tongue cancer Onset Date: ~2012 Z85.810 1/3 of tongue removed Surgical History: - - Right upper lobe lobectomy, cholecystectomy, partial resection of the tongue secondary to malignancy, coronary stents Psychiatric History: Bipolar Lives: Alone, - - Never , no children Smoking Status: Former smoker - 3 packs/day for 32 years for [id number] history. Quit in 2002. Tobacco Use: Cigarettes Alcohol: None, Sober - He quit drinking in 1990 but prior to that drank 2 quarts of whiskey daily Drugs: - - Illicit drugs in the but has since stopped all drug use - *Family History Maternal Family History: Family History (Last Reviewed 10/14/19 @ 13:[address] Suzie Killian DO) Brother Hypertension Mother Heart disease CHF (congestive heart failure) Father Cancer History Items: Diabetes Paternal Family History: Family History (Last Reviewed 10/14/19 @ 13:[address] Suzie Killian DO) Brother Hypertension Mother Heart disease CHF (congestive heart failure) Father Cancer History Items: Cancer - Renal carcinoma in his father Review of Systems Constitutional: Reports: Weight Change - says that he has lost a little weight recently. Denies: Anorexia, Chills, Fever Eyes: Denies: Blurred vision, Double vision, Vision Change HEENT: Denies: Difficulty Swallowing, Eye Pain, Head Aches, Nasal Congestion, Sinus Congestion, Sinus Drainage, Sore Throat Cardiovascular: Reports: Claudication - he has BL leg pain with walking just 50 ft., Light Headedness - episodic...when he has palpitations, Palpitations. D enies: Chest Pain, Chest Tightness, Edema, Orthopnea, Paroxysmal Noc. Dyspnea, Syncope Respiratory: Reports: Shortness of Breath, Shortness of breath upon exertion. Denies: Cough, Hemoptysis, Shortness of breath at rest, Sputum production Gastrointestinal: Denies: Abdominal Pain, Constipation, Diarrhea, Nausea, Vomiting Genitourinary: Denies: Dysuria Musculoskeletal: Reports: Shoulder Pain - left...increases with movement and he is unable to raise the left arm above shoulder level,. Denies: Joint Pain, Joint Tenderness Skin: Reports: Wounds - he has a pressure wound on the sacrum/coccyx. Denies: Jaundice, Rash Neurological: Reports: Change in Speech, Slurred speech. Denies: Blurred vision, Double vision, Confusion, Focal weakness, Headaches, Numbness, Tingling, Tremor, Seizures Psychiatric: Reports: - - + hx of BPD....not currently on any meds. Denies: Anxiety, Depression, Homicidal Ideations, Suicidal Ideations Endocrine: Denies: Hx of Irradiation - tells me no radiation and no chemo with either tongue or lung cancer, Hx of Thyroiditis Hematologic/ Lymphatic: Denies: Easy Bruising, Easy Bleeding, Hx of blood clot Unable to obtain accurate/complete ROS d/t: I do not know how reliable his hx is? No way to verify what he says VTE Information - Inpt Only VTE Present on Admission: No VTE Mechan Device Prophylaxis: SCD's, Knee High KWESI Hose VTE Pharm Prophylaxis ordered?: No Reason prophylaxis not ordered:: Treatment Not Indicated - has hemorrhagic conversion of embolic CVA Patient Problems: Active and Suspected Problems (Last Reviewed 10/14/19 @ 13:[address] Suzie Killian, DO) Cerebrovascular accident, embolic (Acute) Aphasia (Acute) Mixed expressive and receptive Dysphagia (Acute) Right sided weakness (Acute) Debility (Acute) Nontraumatic acute cerebral hemorrhage (Acute) petechial hemorrhage in the L brain following embolic CVA to the left MCA M1 branch Atrial fibrillation (Suspected) Anemia (Acute) History of left common carotid artery stent placement (Acute) endovascular - Physical Exam Vitals/I&O's: Vital Signs Temp Pulse Resp BP Pulse Ox 98.4 F 66 18 156/72 H 98 10/14/19 08:35 10/14/19 08:38 10/14/19 08:35 10/14/19 08:38 10/14/19 10:49 Oxygen Flow Rate (L/min) 2 Oxygen Delivery Method Nasal Cannula Weight: 271 lb 13.279 oz Body Mass Index (BMI) 38.6 Finger Stick Blood Glucose 171 Intake and Output for Last 24 Hours 10/12/19 10/13/19 10/14/19 23:59 23:59 23:59 Intake Total 340 / 340 Output Total 500 / 500 Balance -160 / -160 General: Alert, Oriented x3, Cooperative, No apparent distress, Well developed, Well nourished HEENT: Atraumatic, PERRLA, EOMI, Normocephalic Oral: Dry Mucosa, - - The tongue on the left side is white and hairy.....due to transplant of a flap from the R forearm to the tonguse after hemiglossectomy Neck: Supple, Trachea Midline, - - healed tracheostomy scar. He has a very thick neck and a olea and I could not assess accurately for Carotid bruits or JVD. Lungs: Clear to auscultation, No rhonchi, No wheeze, No rales, Diminished - very diminished throughout Cardiovascular: Regular rate, Regular Rhythm, Normal S1, Normal S2, Murmur - he has a soft 1-2/6 systolic MM at the second RICS, No rub noted, No Gallop Abdomen: Bowel Sounds Present, Soft, Non Tender, Non-Distended, Obese, - - No abdominal bruits, no guarding with palpation Extremities: No clubbing, No cyanosis, Capillary Refill Less than 3 Seconds, No Calf Tenderness, Diminished Peripheral Pulses, Edema - mild ankle edema, - - kwesi hose were in place Skin: No rashes, - - he has a pressure injury to the coccyx and it has a dressing on it....will examine with the next dressing change Musculoskeletal: No Tenderness to Palpation of Joints or Extremities, No Muscle Wasting, Arthritic Changes Neurological: Cranial nerves II-XII grossly intact, - - tAlert: YES LOC/Orientation: oriented to the year and the month and to place and pers How old: 69 What month: September Dysarthria: YES LOC Commands: made a fist and raised his eyebrows Opens eyes: YES Make a fist: YES Facial palsy: NO Best Gaze (horitzontal): intact Visual louis: no visual field cuts Motor Left ARM : decreased ROM due to L shoulder pain Motor Left LE/5 Motor Right ARM: slight drift Motor Left LEG: slight drift Sensation: intact Limb ataxia: none Visual louis: intact Neglect: none Babinski: not assessed Psych/Mental Status: Normal Affect - normal/flat - not knowing his baseline I can not tell, Appropriate Laboratory Results 10/13/19 22:17: POC Glucose 137 H 10/14/19 05:52: WBC 7.6, RBC 4.19 L, Hgb 10.8 L, Hct 35.2 L, MCV 84.0, MCH 25.8 L, MCHC 30.7 L, RDW Std Deviation 42.3, RDW Coeff of Yang 14.2, Plt Count 187, MPV 10.8, Immature Gran % (Auto) 0.400, Neut % (Auto) 54.2, Lymph % (Auto) 27.8, [place] % (Auto) 9.6, Eos % (Auto) 7.2 H, Baso % (Auto) 0.8, Absolute Neuts (auto) 4.1, Absolute Lymphs (auto) 2.12, Nucleated RBC % 0 10/14/19 05:52: Hemoglobin A1c 7.8 H 10/14/19 05:52: Sodium 139, Potassium 4.4, Chloride 104, Carbon Dioxide 29.0, Anion Gap 6, BUN 18, Creatinine 1.01, Estim Creat Clear Calc 74.70, Est GFR (MDRD) Af Amer 94, Est GFR (MDRD) Non-Af 78, BUN/Creatinine Ratio 17.8, Glucose 122 H, Calcium 8.2 L, Phosphorus 3.3, Total Bilirubin 0.40, AST 29, ALT 48, Alkaline Phosphatase 50, Total Protein 6.3 L, Albumin 2.7 L, Globulin 3.6, Albumin/Globulin Ratio 0.8 L 10/14/19 07:13: POC Glucose 112 H 10/14/19 11:29: POC Glucose 157 H Current Medications Acetaminophen (Tylenol) 650 mg PO Q4H PRN PRN PRN Reason: Pain Score 1-10/10 Last Admin: 10/14/19 08:51 Dose: 650 mg Documented by: Albuterol Sulfate (Ventolin Aerosols) 2.5 mg INHALATION Q6H PRN PRN PRN Reason: shortness of breath or wheezing Aspirin (Aspirin, Baby) 81 mg PO DAILY@0800 [facility] Last Admin: 10/14/19 08:38 Dose: 81 mg Documented by: Atorvastatin Calcium (Lipitor) 40 mg PO QHS [facility] Last Admin: 10/13/19 22:44 Dose: Not Given Documented by: Benzonatate (Tessalon Perle) 100 mg PO Q6H PRN PRN PRN Reason: COUGH Bisacodyl (Dulcolax) 10 mg RECTAL .PRN X 1 PRN PRN Reason: Constipation Capsaicin (Zostrix) 1 applic TOPICAL TID PRN PRN; Protocol PRN Reason: pain Chlorhexidine Gluconate (Peridex) 15 ml PO BID [facility] Last Admin: 10/14/19 08:39 Dose: 15 ml Documented by: Clopidogrel Bisulfate (Plavix) 75 mg PO DAILY [facility] Last Admin: 10/14/19 08:52 Dose: 75 mg Documented by: Emollient Ointment (Eucerin Intensive Repair) 1 applic TOPICAL DAILY [facility]; Protocol Insulin Glargine (Lantus (Bkc)) 10 units SC DAILY [facility] Last Admin: 10/14/19 08:41 Dose: 10 u Documented by: Insulin Human Lispro (Humalog Kwikpen (Bkc)) 0 unit SC ACHS [facility]; Protocol Last Admin: 10/14/19 08:37 Dose: Not Given Documented by: Magnesium Hydroxide (Milk Of Magnesia) 30 ml PO .PRN X 1 PRN PRN Reason: Constipation Metoprolol Tartrate (Lopressor (Beta Daniel)) 12.5 mg PO BID [facility] Last Admin: 10/14/19 08:38 Dose: 12.5 mg Documented by: Multi-Ingredient Ointment (Aquaphor) 1 applic TOPICAL DAILY [facility]; Protocol Senna/Docusate Sodium (Senokot-S, Layne-Colace) 2 tablet PO BID [facility] Last Admin: 10/14/19 08:43 Dose: Not Given Documented by: Assessment/Plan All Active Problems (Last Reviewed 10/14/19 @ 13:[address] Suzie Killian, DO) Cerebrovascular accident, embolic (Acute) Aphasia (Acute) Dysphagia (Acute) Right sided weakness (Acute) Debility (Acute) Nontraumatic acute cerebral hemorrhage (Acute) Cytotoxic brain edema (Resolved) Anemia (Acute) History of left common carotid artery stent placement (Acute) History of alcoholism (Resolved) IMPRESSIONS: 1. Post stroke debility with aphasia, R side weakness and dysphagia 2. Embolic L MCA M1 branch CVA with hemorrhagic transformation - S/P endovascular stenting of the L ICA/CCA 3. HTN 4. Uncontrolled DM II 5. HLD 6. anemia - etiology undetermined 7. hx of small cell lung CA - S/P RUL lobectomy 8. Hx of CA of the tongue - S/P hemiglossectomy 9. former tobacco dependence - quit in 2002. 96 Pack year hx 10. Hx of alcoholism - quit in the 11. SUJEY 12. COPD 13. Chronic respiratory failure with hypoxia 14. Hx of illicit drug use in the s - quit in the s 15. Coronary artery disease with history of PTCA to RCA on 16. History of bipolar disorder 17. Chronic diastolic congestive heart failure 18. Mild left atrial enlargement, no PFO 19. Aneurysm of infrarenal abdominal aorta-in January 2019 ultrasound of the abdominal aorta showed a fusiform infrarenal abdominal aortic aneurysm which was unchanged from previous CTA of the abdomen and pelvis obtained in August 2017. The aneurysm measures 3.47 x 3.50 cm in maximal AP and transverse dimensions. 20. Bilateral carotid artery stenosis -carotid ultrasound in May 2019 showed severe (greater than 70%) stenosis of the right extracranial internal carotid artery. There was moderate (50 to 69%) stenosis of the left extracranial internal carotid artery. 21. suspected PAD of the LE's PLAN PT for gait stability OT for ADL's ST for evaluation Analgesics as needed Bowel protocol Fall precautions Assess for Anxiety/Depression GI prophylaxis-not necessary, patient has no heartburn and no dyspepsia or epigastric pain. DVT prophylaxis with SCDs and KWESI hose-pharmacologic prophylaxis is contraindicated due to recent hemorrhagic transformation of left MCA ischemic stroke Follow up with neurology and Dr. Calvillo following DC from [facility] Will recommend arterial studies of the lower extremities for possible claudication following discharge. Encouraged weight loss Start a low dose KRISTA for early diabetic neuropathy with an elevated microalbumin/creatinine ratio Inpatient E&M: 61496 Init Hosp L3
[2019-10-14] MEDS: Insulin Lispro 100 UNIT/ML INSULN.PEN SC ×2 (13:16→16:48)
--- NOTE | 2019-10-14 13:27 | PCM.RU.PYE ---
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 Status Changes from Prescreening?: No changes Identified Actual Problem List:: Cognitve Impr/Memory Loss, Mobility Impaired, Self Care Deficit, Diabetes, Hyperglycemia, BP, Hypertension, Alteration-Leisure Activ. Potential Problem List:: DVT, Bleeding, Infection, UTI, Aspiration, Falls, Skin Integrity, Depression Risk of Complications DVT: KWESI Hose, Sequential Compression Device Bleeding: Monitor Lab Values, Nursing to Teach Precautions for anti-coagulation therapy., Wound, if applicable, to be assessed every shift., Stroke patients assessed for lethargy or change in status. Infection: Clinical Staff to Monitor for S/S of infection:, S/S of infection include fever, redness, warmth, etc. Urinary Tract Infection: Monitor for frequency, burning, discomfort, or incontinence., Nursing will obtain urine sample for urinalysis and C&S when ordered. Aspiration: Clinical staff will monitor for coughing, drooling, congestion., Speech will evaluate swallowing and dsyphasia., Nursing will monitor patient swallowing during meals. Falls: Patient will be evaluated for Fall Precautions, Patient will be placed on Fall Precautions as indicated per protocol. Skin Breakdown: Nursing will assess skin daily using assessment tool., Nursing will place on Skin Breakdown Precautions as indicated. Pain: Clinical staff will assess patient's pain level per protocol., Medications will be given, if needed, and the pain level reassessed., Other methods: Massage, distraction, decrease stimulus, etc. used PRN. Plan of Care Patient requires physician specializing in physical medicine and rehab oversight to provide close medical supervision of rehab issues including: Pain Management, Sleep Problems, Bowel and Bladder, Medical and co-morbidity Management, DVT prophylaxis, Rehabilitation Leadership, Coordination of treatment team Patient needs Physical Therapy: For a minimum of 1 hour, At least 5 out of 7 days Patient needs Physical Therapy to improve:: Mobility, Mobility, Mobility, Strengthening, Transfers, Stretching, ROM, Endurance, Stairs, Gait, Balance Patient needs Occupational Therapy: For a minimum of 1 hour, At least 5 out of 7 days Patient needs Occupational Therapy to improve ADL's incl.: Eating, Grooming, Bathing, Dressing, Toileting, Toilet transfers, Community Reintegration, Higher functioning activities, Household tasks, Adaptive Equipment, Splinting, Other activities as determined Patient requires speech therapy: For a minimum of 1 hour, At least 5 out of 7 days Patient requires speech therapy for: Swallowing, Cognition, Language Skills, Compensatory Strategies Patient requires 24/ Rehabilitation Nursing for: Pain Issues, Identifying and preventing risk factors, Monitoring and reporting current medical conditions, Assisting with ambulation, transfer, and all ADL's, Teaching patients about disease process and medications, Family teaching, Providing safe environment, Bowel and Bladder Issues, Skin integrity, Medication Management Patient needs Fish And Wildlife Technician/ Case Management for: Discharge Planning, Arranging Home Equipment or Services, Family Interventions Patient needs Dietary and Nutrition Services for: Adequate Nutrition, Nutritional Supplements, Nutritional Education Goals Patient will remain: free from falls, or injury at time of discharge. Patient will perform bed mobility at: MOD I level of assist. Patient will complete transfers from bed to chair at: MOD I level of assist. Patient will ambulate: 100 feet, with MOD I assist, with LRD Patient will complete upper body dressing at: MOD I level of assist. Patient will complete lower body dressing at: MOD I level of assist. Patient will complete toileting at: MOD I level of assist. Patient will perform bathing at: MOD I level of assist. Patient will complete grooming at: MOD I level of assist. Patient will complete home management skills at: MOD I level of assist. Patient will achieve: 12 stairs, at MOD I assist Patient will have pain level of: of 3 or less Patient's skin will: remain intact, free from infection. Patient will receive: adequate nutrition. Discharge Planning Anticipated D/C Destination: Home with Home Health
[2019-10-14 13:55] LABS: Ferritin 386 ng/mL (26-388); Iron 48 ug/dL (65-175); Iron Binding Capacity,Total 255 ug/dL (250-450); PERCENT IRON SATURATION 18.8 % (15.0-55.0)
[2019-10-14] MEDS: Mineral Oil/Petrolatum Cr 1.75oz Bottle 1 APPLIC TOPICAL (14:42)
--- NOTE | 2019-10-14 16:17 | CASEMGMT ---
Social Work PHQ-9 completed. Score 6. No resources given at this time. Pt did receive counseling prior for father's but reports to coping now and no issues with mood. Sandra Tellez, LOMBARDI DEVELOPER BIAS CUTTING MACHINE OPERATOR VERTICAL
[2019-10-14 16:22] VITALS: BMI 38.6
[2019-10-14] MEDS: Capsaicin 0.025% 1 APPLIC Tube TOPICAL (16:49)
[2019-10-14 16:56] LABS: Bedside Glucose 206 mg/dL (70-110)
[2019-10-14 20:19] LABS: Microalbumin,Random Urine 56.1 mg/L (NO RANGE EST.); Microalbumin:Creatinine Ratio 44.9 mg/g CRE (<30 mg/g CRE)
[2019-10-14 20:31] VITALS: BP 183/71; PULSE 65; RESP 18; TEMP 36.4; O2SAT 94
[2019-10-14 21:40] LABS: Bedside Glucose 141 mg/dL (70-110)
[2019-10-14 23:17] VITALS: BP 183/71; PULSE 65
[2019-10-15 06:36] LABS: Bedside Glucose 124 mg/dL (70-110)
[2019-10-15] MEDS: Aspirin 81 MG TAB.CHEW PO (07:30)
[2019-10-15 07:31] VITALS: PULSE 70
[2019-10-15] MEDS: Metoprolol Tartrate 25 MG Tablet 12.5 MG PO ×2 (07:31→22:44)
[2019-10-15] MEDS: Clopidogrel Bisulfate 75 MG Tablet PO (07:32)
[2019-10-15] MEDS: Chlorhexidine 480 ML 15 ML PO ×2 (08:40→22:44)
[2019-10-15] MEDS: Mineral Oil/Petrolatum Cr 1.75oz Bottle 1 APPLIC TOPICAL (08:41)
[2019-10-15 09:12] VITALS: BP 133/60; PULSE 56; RESP 16; TEMP 36.6; O2SAT 96
[2019-10-15 11:10] LABS: Bedside Glucose 130 mg/dL (70-110)
[2019-10-15 12:27] VITALS: BMI 38.6
[2019-10-15 14:29] VITALS: O2SAT 94
[2019-10-15 16:56] LABS: Bedside Glucose 153 mg/dL (70-110)
[2019-10-15] MEDS: Insulin Lispro 100 UNIT/ML INSULN.PEN SC ×2 (17:05→22:47)
--- NOTE | 2019-10-15 18:31 | PCM.PN.BLA ---
Progress Note Afebrile Vital signs are stable Maintaining appropriate oxygen saturation on 2 to 3 L of nasal O2. Oral intake is fair to good. Blood sugars are well controlled The microalbumin creatinine ratio is elevated at 44.9 consistent with early diabetic nephropathy. Iron studies were unremarkable. Alert, oriented x3, no apparent distress Lungs-diminished but clear to auscultation Heart-regular rate and rhythm Abdomen-obese, nontender, nondistended, bowel sounds present No change in neurologic exam since yesterday PT OT and ST notes were reviewed. Impressions 1. Postop debility with aphasia, right side weakness dysphagia 2. 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 Hypertension-controlled 4. Diabetes mellitus type 2 controlled 5. Recent endovascular left internal carotid/common carotid artery stent 6. History of coronary artery disease 7. COPD 8. Chronic respiratory failure with hypoxemia Continue therapy Inpatient E&M: [id number] [facility] Hosp L1
[2019-10-15 19:29] VITALS: BP 108/75; PULSE 63; RESP 16; TEMP 36.6; O2SAT 100
[2019-10-15 21:30] LABS: Bedside Glucose 182 mg/dL (70-110)
[2019-10-15 22:44] VITALS: BP 108/75; PULSE 63
[2019-10-16] VITALS (7 sets, daily range): BP systolic 138–172; BP diastolic 56–78; PULSE 61–66; RESP 18; TEMP 36.6; O2SAT 94–97; BMI 38.6
[2019-10-16 06:41] LABS: Bedside Glucose 132 mg/dL (70-110)
[2019-10-16] MEDS: Chlorhexidine 480 ML 15 ML PO ×2 (09:14→19:56)
[2019-10-16] MEDS: Mineral Oil/Petrolatum Cr 1.75oz Bottle 1 APPLIC TOPICAL (09:14)
[2019-10-16] MEDS: Metoprolol Tartrate 25 MG Tablet 12.5 MG PO ×2 (09:15→19:55)
[2019-10-16] MEDS: Lisinopril 2.5 MG Tablet PO (09:15)
[2019-10-16] MEDS: Clopidogrel Bisulfate 75 MG Tablet PO (09:15)
[2019-10-16] MEDS: Aspirin 81 MG TAB.CHEW PO (09:15)
[2019-10-16] MEDS: Senna/Docusate Sodium 1 Tablet 2 TABLET PO (09:15)
[2019-10-16 11:25] LABS: Bedside Glucose 139 mg/dL (70-110)
[2019-10-16] MEDS: Insulin Lispro 100 UNIT/ML INSULN.PEN SC ×2 (16:47→21:28)
[2019-10-16 17:00] LABS: Bedside Glucose 181 mg/dL (70-110)
[2019-10-16] MEDS: Acetaminophen 325 MG Tablet 650 MG PO (19:50)
[2019-10-16] MEDS: Capsaicin 0.025% 1 APPLIC Tube TOPICAL (19:56)
[2019-10-16 21:21] LABS: Bedside Glucose 160 mg/dL (70-110)
[2019-10-17 06:00] LABS: Bedside Glucose 125 mg/dL (70-110)
[2019-10-17 07:00] VITALS: BP 152/63; PULSE 60; RESP 16; TEMP 36.4; O2SAT 98
[2019-10-17] MEDS: Aspirin 81 MG TAB.CHEW PO (08:39)
[2019-10-17 08:40] VITALS: PULSE 60
[2019-10-17] MEDS: Metoprolol Tartrate 25 MG Tablet 12.5 MG PO ×2 (08:40→20:30)
[2019-10-17] MEDS: Clopidogrel Bisulfate 75 MG Tablet PO (08:41)
[2019-10-17] MEDS: Chlorhexidine 480 ML 15 ML PO ×2 (08:41→20:31)
[2019-10-17] MEDS: Lisinopril 2.5 MG Tablet PO ×2 (08:42→16:15)
[2019-10-17] MEDS: Mineral Oil/Petrolatum Cr 1.75oz Bottle 1 APPLIC TOPICAL (08:44)
[2019-10-17 11:50] LABS: Bedside Glucose 144 mg/dL (70-110)
--- NOTE | 2019-10-17 15:05 | PN_ITS ---
Progress Note Afebrile VSS -systolic blood pressure has consistently been greater than 130. Heart rate is well controlled. Maintaining appropriate oxygen saturation on a 2 L nasal cannula which is his baseline. Oral intake is good. His weight has increased 3 pounds since admission. Blood sugars are well controlled He denies shortness of breath at rest but has shortness of breath with exertion. Not entirely sure this is due to COPD but suspect significant deconditioning. On 2 L/min he never desaturated less than 95% with exertion at physical therapy yesterday. No nausea, vomiting, chest pain, calf tenderness, diarrhea. Discussed with nursing - no problems that need addressed Reviewed the PT/OT/ST notes Medication list reviewed. Alert, oriented x3, no apparent distress, appropriate Lungs-diminished but clear to auscultation Heart-regular rate and rhythm Abdomen-obese, nontender, nondistended, bowel sounds present No calf tenderness Speech is more fluent good strength both UE's and LE's. Impressions 1. Postop debility with aphasia, right side weakness, dysarthria and dysphagia 2. 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 Hypertension- still not < 130/80 4. Diabetes mellitus type 2 controlled 5. Recent endovascular left internal carotid/common carotid artery stent 6. History of coronary artery disease 7. COPD 8. Chronic respiratory failure with hypoxemia 9. chronically SOB with exertion - I think this at least secondary to deconditioning - he may benefit from pulmonary rehab post DC 10. Mild to moderate cognitive?linguistic impairment with deficits in short- term memory, word retrieval and attention. Increase the Lisinopril to keep the BP < 130/80 recheck lab on Fri...including Lipid panel, CBC, BMP and mag Continue SCDs and KWESI calderon for DVT prophylaxis Recommend pulmonary rehab at discharge Inpatient E&M: [id number] Subs Hosp L2
[2019-10-17] MEDS: Insulin Lispro 100 UNIT/ML INSULN.PEN SC ×2 (16:16→20:31)
[2019-10-17 16:40] LABS: Bedside Glucose 192 mg/dL (70-110)
[2019-10-17 16:59] VITALS: BMI 38.6
[2019-10-17 17:30] VITALS: O2SAT 97
[2019-10-17 20:20] VITALS: BP 158/61; PULSE 62; RESP 16; TEMP 36.4; O2SAT 97; BMI 38.6
[2019-10-17 20:30] VITALS: BP 158/61; PULSE 62
[2019-10-17 22:21] LABS: Bedside Glucose 188 mg/dL (70-110)
[2019-10-18 06:47] VITALS: O2SAT 98
[2019-10-18 07:35] LABS: Bedside Glucose 139 mg/dL (70-110)
[2019-10-18 07:55] VITALS: PULSE 68
[2019-10-18] MEDS: Lisinopril 5 MG Tablet PO (07:55)
[2019-10-18] MEDS: Metoprolol Tartrate 25 MG Tablet 12.5 MG PO ×2 (07:55→20:42)
[2019-10-18] MEDS: Aspirin 81 MG TAB.CHEW PO (07:55)
[2019-10-18] MEDS: Clopidogrel Bisulfate 75 MG Tablet PO (07:55)
[2019-10-18] MEDS: Mineral Oil/Petrolatum Cr 1.75oz Bottle 1 APPLIC TOPICAL (07:56)
[2019-10-18] MEDS: Chlorhexidine 480 ML 15 ML PO ×2 (08:00→20:41)
[2019-10-18 08:21] VITALS: BP 152/73; PULSE 64; RESP 16; TEMP 36.6; O2SAT 97
--- NOTE | 2019-10-18 10:41 | CCN.REFER ---
Social Work IDT met with patient for Team Meeting. Discussed patient's progress in therapy. Pt is SBA - CGA for transfers, walking 100 ft with FWW at SBA-CGA and will trail cane this week. Pt is min assist for bathing, BA for grooming while standing, SBA for dressing, and has improved endurance. pt is on a [facility] soft/thin diet and ST to reevaluate to possibly upgrade. ST working on memory and word finding as pt is 50-60% accurate. Explained insurance with [employer] 10/18 and continued stay is not guaranteed. Will ReTeam next week. Will continue to follow. Sandra Tellez, HELPDESK ANALYST FUGITIVE INVESTIGATOR
--- NOTE | 2019-10-18 11:18 | PCM.PN.BLA ---
Progress Note Patrick was seen on TEAM rounds today. He is not and has never had children. His sister was not available to participate in TEAM rounds by phone. Afebrile VSS Maintaining appropriate oxygen saturation on RA Oral intake is good Discussed with nursing - no problems that need addressed Reviewed the PT/OT/ST notes Medication list reviewed. Patrick has no complaints today. He is sleeping well. He has no pain. He denies shortness of breath at rest. No chest pain, nausea, vomiting, constipation. Alert, oriented x3, no apparent distress, sitting in bed, appropriate Lungs-diminished but clear to auscultation Heart-regular rate and rhythm, no gallop and no rub Abdomen-obese, nontender, nondistended, bowel sounds present, no guarding with palpation No change in neurologic exam since yesterday No calf tenderness Impressions 1. Postop debility with aphasia, right side weakness dysphagia - speech is more fluent but, continues to have trouble with word finding 2. 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 Hypertension-controlled 4. Diabetes mellitus type 2 controlled 5. Recent endovascular left internal carotid/common carotid artery stent 6. History of coronary artery disease 7. COPD 8. Chronic respiratory failure with hypoxemia continue therapy Minimal insulin requirement on a calorie controlled diet - will try and convert to orals. He is now agreeable to being educated by the community outreach advocate. STROKE Vital Signs/Narrative: Vital Signs Temp Pulse Resp BP Pulse Ox 10/18/19 08:21 97.8 F 64 16 152/73 H 97 10/18/19 07:55 68 Inpatient E&M: [id number] Subs Hosp L2
[2019-10-18 11:46] LABS: Bedside Glucose 153 mg/dL (70-110)
[2019-10-18] MEDS: Insulin Lispro 100 UNIT/ML INSULN.PEN SC ×2 (11:50→20:44)
[2019-10-18] MEDS: Capsaicin 0.025% 1 APPLIC Tube TOPICAL ×2 (13:24→20:42)
[2019-10-18 15:17] VITALS: BMI 38.6
[2019-10-18 16:55] LABS: Bedside Glucose 117 mg/dL (70-110)
[2019-10-18 19:36] VITALS: BP 141/63; PULSE 58; RESP 18; TEMP 36.2; O2SAT 95
[2019-10-18 20:25] VITALS: RESP 18; O2SAT 95; BMI 38.6
[2019-10-18] MEDS: Ipratropium Bromide 0.06% NASAL SPRAY 2 SPRAY NASAL (20:41)
[2019-10-18 20:42] VITALS: BP 141/63; PULSE 58
[2019-10-18 22:16] LABS: Bedside Glucose 220 mg/dL (70-110)
--- NOTE | 2019-10-19 03:57 | NURSING ---
Reviewed and agre with lLPN documentation and charting.
[2019-10-19 06:35] LABS: Bedside Glucose 141 mg/dL (70-110)
[2019-10-19 07:15] VITALS: BP 146/68; PULSE 64; RESP 16; TEMP 36.9; O2SAT 98
[2019-10-19 08:05] VITALS: PULSE 64
[2019-10-19] MEDS: Metoprolol Tartrate 25 MG Tablet 12.5 MG PO ×2 (08:05→22:09)
[2019-10-19] MEDS: Lisinopril 5 MG Tablet PO (08:05)
[2019-10-19] MEDS: Aspirin 81 MG TAB.CHEW PO (08:05)
[2019-10-19] MEDS: Clopidogrel Bisulfate 75 MG Tablet PO (08:05)
[2019-10-19] MEDS: Mineral Oil/Petrolatum Cr 1.75oz Bottle 1 APPLIC TOPICAL (08:07)
[2019-10-19] MEDS: Chlorhexidine 480 ML 15 ML PO ×2 (08:09→22:10)
[2019-10-19] MEDS: Ipratropium Bromide 0.06% NASAL SPRAY 2 SPRAY NASAL ×2 (08:10→22:10)
[2019-10-19] MEDS: Acetaminophen 325 MG Tablet 650 MG PO (11:50)
[2019-10-19 11:51] LABS: Bedside Glucose 124 mg/dL (70-110)
[2019-10-19 12:02] VITALS: O2SAT 98
[2019-10-19 14:16] VITALS: BMI 38.6
[2019-10-19] MEDS: Capsaicin 0.025% 1 APPLIC Tube TOPICAL (15:00)
[2019-10-19 17:40] LABS: Bedside Glucose 139 mg/dL (70-110)
[2019-10-19 19:42] VITALS: BP 166/98; PULSE 70; RESP 16; TEMP 36.7; O2SAT 94
[2019-10-19 21:50] LABS: Bedside Glucose 212 mg/dL (70-110)
[2019-10-19 22:09] VITALS: BP 166/98; PULSE 70
[2019-10-19] MEDS: Insulin Lispro 100 UNIT/ML INSULN.PEN SC (22:12)
[2019-10-19 23:41] VITALS: BMI 38.6
[2019-10-20 06:25] LABS: Hematocrit 38.4 % (40-54); Hemoglobin 12.2 g/dL (13.0-16.5); Mean Corp Hgb Conc 31.8 g/dL (32-36); Mean Corpuscular Hgb 26.5 pg (27.0-32.0); Mean Corpuscular Volume 83.5 fL (80-94); Mean Platelet Vol. 10.8 fl (6.2-12.0); Platelet Count 228 K/mm3 (150-450); RBC Distribution Width CV 14.9 % (11.6-14.6); RBC Distribution Width SD 44.3 fl (35.1-43.9); White Blood Count 8.3 K/mm3 (4.4-11.0)
[2019-10-20 06:44] LABS: Anion Gap 6 (5-15); BUN 21 mg/dL (7-18); BUN/Creat Ratio 20.8 RATIO (10-20); Calcium,Total 9.1 mg/dL (8.5-10.1); Chloride 103 mmol/L (98-107); Cholesterol 172 mg/dL (200); Creatinine, Serum 1.01 mg/dL (0.70-1.30); EST Glomerular Filtration Rate 78 mL/min (>60); Est Glom Filt Rate - Afr Amer 94 mL/min (>60); Glucose 143 mg/dL (74-106); High Density Lipoprotein 31 mg/dL; Magnesium 2.1 mg/dL (1.6-2.6); Potassium 4.3 mmol/L (3.5-5.1); Sodium Level 137 mmol/L (136-145); Triglycerides 177 mg/dL; Very Low Density Lipoprotein 35 mg/dL (5-40)
[2019-10-20 07:16] LABS: Bedside Glucose 143 mg/dL (70-110)
[2019-10-20] MEDS: Aspirin 81 MG TAB.CHEW PO (07:59)
[2019-10-20] MEDS: Ipratropium Bromide 0.06% NASAL SPRAY 2 SPRAY NASAL ×2 (07:59→22:06)
[2019-10-20 08:00] VITALS: PULSE 64; BMI 38.6
[2019-10-20] MEDS: Metoprolol Tartrate 25 MG Tablet 12.5 MG PO ×2 (08:00→22:03)
[2019-10-20] MEDS: Chlorhexidine 480 ML 15 ML PO ×2 (08:01→22:07)
[2019-10-20] MEDS: Clopidogrel Bisulfate 75 MG Tablet PO (08:01)
[2019-10-20] MEDS: Lisinopril 5 MG Tablet PO (08:02)
[2019-10-20 08:45] VITALS: BP 118/70; PULSE 64; RESP 16; TEMP 36.6; O2SAT 96
[2019-10-20 11:31] LABS: Bedside Glucose 173 mg/dL (70-110)
[2019-10-20] MEDS: Insulin Lispro 100 UNIT/ML INSULN.PEN SC ×2 (12:00→22:04)
--- NOTE | 2019-10-20 12:20 | PN_ITS ---
Progress Note Afebrile Heart rate is within normal limits Blood pressure this morning is 118/70 but last night at bedtime it was 166/98. Medication list was reviewed. Antihypertensives include lisinopril that was increased to 5 mg daily yesterday and metoprolol 12.5 mg twice daily. the heart rate has ranged from 56-70 since admission. Blood sugar record was reviewed. The majority of the blood sugars are less than 200 but the at bedtime sugar is sometimes greater than 200. No hypoglycemia. Patrick tells me that at home david was on 75 units BID of long acting insulin and also on Amaryl. In the hospital he is on no oral agents and he is on Lantus 10 units daily. He is on a medium SSI but, gets humalog only 1-2 times a day and only 1-2 units at a time. I discussed this with him and he told me it is because there is no chocolate to eat. I told him if he could stick to a calorie controlled diet or even carb control we may be able to control the BS's with oral agents and he would like to try this. He is also willing to be educated about diet from the senior ios developer. He is sleeping well and has no complaints Alert, appropriate Says he is tired today because he walked the loop yesterday with No AD........today he is using the WW He had no pain in the legs yesterday with walking the loop but, today he is having some pain in the calves. He had no rest claudication at night last night........I tend to think he has poor conditioning and not PVD as the etiology of the leg cramps/pain with ambulation Lungs - diminished but CTA H - regular abd - NT, ND, BS present no change in the neuro exam from yesterday....still having some trouble with word finding Impressions 1. post stroke debility 2. Embolic L MCA M1 branch stroke with hemorrhagic transformation 3. HTN - not adequately controlled 4. DM II - Insulin requirements in the hospital are greatly decreased from what he takes as an OP.......we are going to try and control the BS's with diet and oral agents 5. S/P endovascular stent LICA/CCA Consult the senior ios developer for education DC Lantus and start Amaryl 2 mg Q AM and Januvia 100 mg daily Continue the SSI for now Needs a 30 day event monitor and follow up with cardiology post DC....no anticoagulation at this time until we know for sure that he is having PAF......with the hemorrhagic transformation he is at increased risk for bleeding Add Amlodipine 5 mg daily for BP control and monitor the BP with the blood sugars 4 times a day STROKE Vital Signs/Narrative: Vital Signs Temp Pulse Resp BP Pulse Ox 10/20/19 08:45 97.8 F 64 16 118/70 96 Inpatient E&M: [id number] Subs Hosp L2
[2019-10-20 16:00] VITALS: BP 158/60; PULSE 70; O2SAT 95
[2019-10-20 17:00] LABS: Bedside Glucose 148 mg/dL (70-110)
[2019-10-20 21:45] VITALS: BP 152/62; PULSE 71; RESP 18; TEMP 36.3; O2SAT 95
[2019-10-20 22:03] VITALS: PULSE 71
[2019-10-20 22:05] LABS: Bedside Glucose 191 mg/dL (70-110)
[2019-10-21] VITALS (7 sets, daily range): BP systolic 113–146; BP diastolic 58–71; PULSE 65–76; RESP 16–18; TEMP 36.6–36.8; O2SAT 95–99; BMI 38.6
--- NOTE | 2019-10-21 05:58 | NURSING ---
Pt set off pa and stated he had to pee. Pt swung legs around to side of bed and wanted to stand. Instead of using urinal for urgency, pt walked to br and dribbled all the way to br and in front of toilet. Pt gown changed and incontinence protovol followed.
[2019-10-21 07:05] LABS: Bedside Glucose 144 mg/dL (70-110)
[2019-10-21] MEDS: Metoprolol Tartrate 25 MG Tablet 12.5 MG PO ×2 (08:08→21:14)
[2019-10-21] MEDS: Glimepiride 2 MG Tablet PO (08:08)
[2019-10-21] MEDS: Aspirin 81 MG TAB.CHEW PO (08:08)
[2019-10-21] MEDS: Ipratropium Bromide 0.06% NASAL SPRAY 2 SPRAY NASAL (08:08)
[2019-10-21] MEDS: amLODIPine 5 MG Tablet PO (08:09)
[2019-10-21] MEDS: Clopidogrel Bisulfate 75 MG Tablet PO (08:10)
[2019-10-21] MEDS: Lisinopril 5 MG Tablet PO (08:10)
[2019-10-21] MEDS: Chlorhexidine 480 ML 15 ML PO ×2 (08:10→21:14)
[2019-10-21] MEDS: LINAGLIPTIN 5 MG TABLET PO (08:10)
--- NOTE | 2019-10-21 11:45 | CASEMGMT ---
Addendum entered by Sandra Tellez 10/21/19 16:02: [facility] unable to accept. Referred to [facility] - they can accept. Original Note: Social Work Spoke with patient about DC plans. Pt agreeable to DC home 10/22. inquired about restarting services with [facility] and nonskilled HHC agency. Pt stated he has plenty of meals so he will restart when needed and his C.M. could not find nonskilled aides to service area. Provided list of skilled [facility] - pt chose [facility]. Confirmed they can service pt's area - they can. Referral made for PT/OT/ST/SN. No DME needs. Plan: DC home alone 10/22 with [facility] PT/OT/ST/SN. No DME, Sandra Tellez, TEST ENGINEERING TECHNICIAN BEHAVIOUR SUPPORT TEACHER
[2019-10-21 11:51] LABS: Bedside Glucose 81 mg/dL (70-110)
[2019-10-21] MEDS: Acetaminophen 325 MG Tablet 650 MG PO (12:02)
--- NOTE | 2019-10-21 12:48 | PCM.PN.BLA ---
Progress Note Lantus was discontinued yesterday and the patient was placed on oral agents. The fasting blood sugar today was 144 and the blood sugar prior to lunch was 81. He received 2 mg of Amaryl this morning and 5 mg of Tradjenta. Patrick met with the dietitian today and she instructed him in a proper diet. He eats large amounts of carbohydrates at home including a box of donuts at a time and candy bars. Alert, NAD L - CTA but diminished H - RRR Abd - obese, soft, NT Impressions 1. DM II - can be controlled with oral agents IF he complaint with diet after DC. STROKE Vital Signs/Narrative: Vital Signs Pulse BP 10/21/19 11:00 76 145/60 H Inpatient E&M: [id number] Subs Hosp L1
[2019-10-21 16:46] LABS: Bedside Glucose 102 mg/dL (70-110)
[2019-10-21] MEDS: Insulin Lispro 100 UNIT/ML INSULN.PEN SC (21:15)
[2019-10-21 21:21] LABS: Bedside Glucose 197 mg/dL (70-110)
[2019-10-22] VITALS (8 sets, daily range): BP systolic 129–150; BP diastolic 50–71; PULSE 64–73; RESP 16–18; TEMP 36.8; O2SAT 92–98; BMI 38.6
[2019-10-22 06:56] LABS: Bedside Glucose 134 mg/dL (70-110)
[2019-10-22] MEDS: Metoprolol Tartrate 25 MG Tablet 12.5 MG PO ×2 (08:00→23:07)
[2019-10-22] MEDS: amLODIPine 5 MG Tablet PO (08:04)
[2019-10-22] MEDS: Glimepiride 2 MG Tablet PO (08:04)
[2019-10-22] MEDS: Aspirin 81 MG TAB.CHEW PO (08:04)
[2019-10-22] MEDS: Lisinopril 5 MG Tablet PO (08:04)
[2019-10-22] MEDS: LINAGLIPTIN 5 MG TABLET PO (08:05)
[2019-10-22] MEDS: Clopidogrel Bisulfate 75 MG Tablet PO (08:05)
[2019-10-22] MEDS: Ipratropium Bromide 0.06% NASAL SPRAY 2 SPRAY NASAL ×2 (08:06→23:03)
[2019-10-22] MEDS: Chlorhexidine 480 ML 15 ML PO ×2 (08:13→23:05)
--- NOTE | 2019-10-22 10:00 | DCINST_ITS ---
- Discharge Diagnoses Current Active Problems: Current Active and Chronic Problems (Last Reviewed 10/14/19 @ 13:[address] Suzie Killian, DO) Chronic respiratory failure with hypoxia (Chronic) on 2 LPM, follows up with Dr. Finley Bipolar disorder (Chronic) History of hepatitis B (Chronic) History of tongue cancer (Chronic) had a hemiglossectomy Cerebrovascular accident, embolic (Acute) Aphasia (Acute) Mixed expressive and receptive Dysphagia (Acute) Right sided weakness (Acute) Debility (Acute) Nontraumatic acute cerebral hemorrhage (Acute) petechial hemorrhage in the L brain following embolic CVA to the left MCA M1 branch Morbid obesity (Chronic) Left atrial enlargement (Chronic) Anemia (Acute) History of left common carotid artery stent placement (Acute) endovascular You will use the following diet at home:: Calorie/Carbohydrate Controlled (specify 1200, 1400, etc) - 2000 calorie, low fat and low salt. Your food should be the consistency of: Regular Your liquids should be the consistency of: Regular/Thin Discharge Activity: May Not Drive, May Shower, Use Walker, - - Do the exercises given to you by the therapists twice a day Weight Bearing Status: Full weight bearing Keep extremity elevated above heart level: Legs - when seated to prevent swelling Call your doctor if you observe: Fever of 101 or Higher, Numbness or Tingling - that is different from when you left the rehab unit, Inability to urinate, Inability to have a bowel movement, Dizziness, Fainting spells, Swelling in the ankles, Chest pain, Increased palpitations (irregular heartbeat), Calf discomfort, Uncontrolled pain Instructions: MyPlate Worksheet: 2,000 Calories, Diabetes: Understanding Carbohydrates, What Is Atrial Flutter/Atrial Fibrillation? Additional Instructions: 1. Your blood sugars are very good off insulin and on 2 drug you take by Mouth. You will take Amaryl 1 mg tablet twice a day and Tradjenta 5 mg once a day. the blodd sugars are controlled because you are on a 2000 calorie diet. If you go home and start eating donuts and chocolate and other foods high in sugar you will likely have to go back on insulin. 2. The initial stroke you had was thought to be due to a blood clot. The thought is that you probably have atrial fibrillation. This is when the heart beats irregularly and because of this it makes little clots that then get squeezed out the the heart and then go to the brain. You will be getting a heart monitor to wear for 30 days to see if you are having any atrial fibrillation. You will follow up with a heart doctor after the monitor to go over the results. If you have atrial fibrillation you will need to go on a blood thinner to help prevent more strokes from happening. 3. You can not drive until a neurologist says you are able to drive. You are still having some problems with thinking and you are not safe driving and neither are the other people who will be on the road with you. 4. The goal for the BP is < 130/80 and the goal for the HGBA1C is 7 since you have had a stroke. You are on a drug to lower your cholesterol called Atorvastin (Lipitor). theere are 2 kinds of cholesterol. HDL is the good cholesterol and this should be > 40. The bad cholesterol is the LDL and this should be 70 or less. Your LDL is 102 and this is too high. The HDL is only 31 and this is too low. Exercise helps to increase HDL. To help prevent strokes and heart attacks in the future you need to keep the cholesterol, HGBA1C and blood pressure very well controlled. 5. Good luck to you Patrick. I think that you need to get more exercise than you routinely get at home. [facility] has a pulmonary rehab program and I think you would benefit from a ttending. You have to work your lungs and your heart for them to work as well as they can.........exercise also helps to control the blood sugars and help you to lose weight. Take care and if you have any questions after you get home you can call the rehab unit at [phone] or my office at [phone]. Allergies/Adverse Reactions: Allergies Fakpuxl-Bsn-Kin Reductase Inhibitor Allergy (Verified 09/07/19 08:27) Other hydrocodone [From Lortab] Adverse Reaction (Severe, Verified 09/07/19 08:27) UNKOWN tramadol [From Ultram] Adverse Reaction (Severe, Verified 09/07/19 08:27) UNKOWN zolpidem [From Ambien] Adverse Reaction (Severe, Verified 09/07/19 08:27) UNKOWN alprazolam [From Xanax] Adverse Reaction (Verified 09/07/19 08:27) Other HALLUCINATIONS loratadine Adverse Reaction (Verified 09/07/19 08:27) Unknown metformin Adverse Reaction (Verified 09/07/19 08:27) Abd cramps/diarrhea oxycodone [Oxycodone] Adverse Reaction (Verified 09/07/19 08:27) Itching oxycodone HCl [From Percocet] Adverse Reaction (Verified 09/07/19 08:27) Itching Penicillins Adverse Reaction (Verified 09/07/19 08:27) Vomiting Medications to take at Discharge metoprolol tartrate 50 mg tablet 12.5 mg PO BID tab 07/21/17 Clopidogrel Bisulfate [Plavix] 75 mg PO DAILY 08/11/18 Albuterol Aerosols [Ventolin Aerosols] 2.5 mg INHALATION Q6H PRN PRN 10/13/19 Acetaminophen [Tylenol Tablet] 650 mg PO Q4H PRN PRN tablet 10/22/19 Amlodipine [Norvasc] 10 mg PO DAILY #30 tab 10/22/19 Aspirin [Aspirin, Baby] 81 mg PO DAILY@0800 #30 tab.chew 10/22/19 Atorvastatin Calcium [Lipitor] 40 mg PO QHS #30 tab 10/22/19 Glimepiride [Amaryl] 1 mg PO BID #60 tab 10/22/19 Ipratropium Dexter 0.06% [ATROVENT NASAL SPRAY] 2 spray NASAL BID #1 nasal.sry 10/22/19 Linagliptin [Tradjenta] 5 mg PO DAILY #30 tab 10/22/19 Lisinopril [Zestril] 5 mg PO DAILY #30 tab 10/22/19 The following prescriptions were given: Glimepiride [Amaryl] 1 mg PO BID #60 tab Transmission Status: Pending to [facility] #30 Aspirin [Aspirin, Baby] 81 mg PO DAILY@0800 #30 tab.chew Transmission Status: Pending to [facility] #30 Ipratropium Dexter 0.06% [ATROVENT NASAL SPRAY] 2 spray NASAL BID #1 nasal.sry Transmission Status: Pending to [facility] #30 Atorvastatin Calcium [Lipitor] 40 mg PO QHS #30 tab Transmission Status: Pending to [facility] #30 Amlodipine [Norvasc] 10 mg PO DAILY #30 tab Transmission Status: Pending to [facility] #30 Linagliptin [Tradjenta] 5 mg PO DAILY #30 tab Transmission Status: Pending to [facility]30 Lisinopril [Zestril] 5 mg PO DAILY #30 tab Transmission Status: Pending to [facility]30 Primary Care Physician: Bruce Calvillo Chi, MD [Primary Care Provider] - Test Results: Test results from this visit will be discussed in further detail at your follow- up appointment, if applicable. Please Follow Up With: Dr. Calvillo When: Friday Please Follow Up With: Dr. Call Please Follow Up With: Tiffanie Haro neurology When: Friday Please Follow Up With: Dr. Waldron's SIL Carson When: Please Follow Up With: 30 Day event monitor Proposed Discharge Date: 10/23/19
[2019-10-22] MEDS: Acetaminophen 325 MG Tablet 650 MG PO (10:04)
--- NOTE | 2019-10-22 10:29 | DS.PCM_ITS ---
Discharge Date and Diagnosis - Problem List Patient Problems: Active and Suspected Problems (Last Reviewed 10/14/19 @ 13:[address] 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 Call Suspected Problems: Suspected Problems (Last Reviewed 10/14/19 @ 13:[address] Suzie carlson DO) Atrial fibrillation (Suspected) - Secondary Discharge Diagnosis Chronic Problems: Chronic Problems (Last Reviewed 10/14/19 @ 13:[address] Suzie Killian DO) Chronic respiratory failure with hypoxia (Chronic) on 2 LPM, follows up with Dr. Finley Bipolar disorder (Chronic) History of hepatitis B (Chronic) History of tongue cancer (Chronic) had a hemiglossectomy Morbid obesity (Chronic) Left atrial enlargement (Chronic) Stage 2 moderate COPD by GOLD classification (Chronic) SUJEY (obstructive sleep apnea) (Chronic) Small cell carcinoma of lung (Chronic) Has had a RUL lobectomy Bilateral carotid artery stenosis (Chronic) Chronic diastolic (congestive) heart failure (Chronic) Hyperlipidemia (Chronic) Dyspnea (Chronic) Old myocardial infarction (Chronic) Premature atrial contractions (Chronic) Premature ventricular contraction (Chronic) Postsurgical percutaneous transluminal coronary angioplasty (PTCA) status (Chronic) PTCA/BMS to distal RCA 02/25/09 Presence of stent in coronary artery (Chronic ~06/22/08) PTCA/BMS to distal RCA 06/22/08 Atherosclerotic heart disease of [place] coronary artery without angina pectoris (Chronic) PTCA/BMS to distal RCA 06/22/08 Aneurysm of infrarenal abdominal aorta (Chronic) Benign essential hypertension (Chronic) Type 2 diabetes mellitus (Chronic) uncontrolled. HGBA1C in September 2019 is 8.6% Hospital Course and Treatment Imaging Results: Laboratory Last Values WBC 8.3 K/mm3 (4.4-11.0) 10/20/19 06:15 RBC 4.60 M/mm3 (4.6-6.2) 10/20/19 06:15 Hgb 12.2 g/dL (13.0-16.5) L 10/20/19 06:15 Hct 38.4 % (40-54) L 10/20/19 06:15 MCV 83.5 fL (80-94) 10/20/19 06:15 MCH 26.5 pg (27.0-32.0) L 10/20/19 06:15 MCHC 31.8 g/dL (32-36) L 10/20/19 06:15 RDW Std Deviation 44.3 fl (35.1-43.9) H 10/20/19 06:15 RDW Coeff of Yang 14.9 % (11.6-14.6) H 10/20/19 06:15 Plt Count 228 K/mm3 (150-450) 10/20/19 06:15 MPV 10.8 fl (6.2-12.0) 10/20/19 06:15 Immature Gran % (Auto) 0.400 % (0.0-0.9) 10/14/19 05:52 Neut % (Auto) 54.2 % (47-70) 10/14/19 05:52 Lymph % (Auto) 27.8 % (19-41) 10/14/19 05:52 [place] % (Auto) 9.6 % (0-10) 10/14/19 05:52 Eos % (Auto) 7.2 % (0-5) H 10/14/19 05:52 Baso % (Auto) 0.8 % (0-1) 10/14/19 05:52 Absolute Neuts (auto) 4.1 X10^3/uL (2.0-7.7) 10/14/19 05:52 Absolute Lymphs (auto) 2.12 X10^3/uL (0.83-4.51) 10/14/19 05:52 Nucleated RBC % 0 % (0-5) 10/14/19 05:52 Sodium 137 mmol/L (136-145) 10/20/19 06:15 Potassium 4.3 mmol/L (3.5-5.1) 10/20/19 06:15 Chloride 103 mmol/L (98-107) 10/20/19 06:15 Carbon Dioxide 28.0 mmol/L (21.0-32.0) 10/20/19 06:15 Anion Gap 6 (5-15) 10/20/19 06:15 BUN 21 mg/dL (7-18) H 10/20/19 06:15 Creatinine 1.01 mg/dL (0.70-1.30) 10/20/19 06:15 Estim Creat Clear Calc 74.70 ml/min 10/20/19 06:15 Est GFR (MDRD) Af Amer 94 mL/min (>60) 10/20/19 06:15 Est GFR (MDRD) Non-Af 78 mL/min (>60) 10/20/19 06:15 BUN/Creatinine Ratio 20.8 RATIO (10-20) H 10/20/19 06:15 Glucose 143 mg/dL (74-106) H 10/20/19 06:15 Hemoglobin A1c 7.8 % (3.8-5.6) H 10/14/19 05:52 Calcium 9.1 mg/dL (8.5-10.1) 10/20/19 06:15 Phosphorus 3.3 mg/dL (2.5-4.9) 10/14/19 05:52 Magnesium 2.1 mg/dL (1.6-2.6) 10/20/19 06:15 Iron 48 ug/dL (65-175) L 10/14/19 05:52 TIBC 255 ug/dL (250-450) 10/14/19 05:52 Iron Saturation 18.8 % (15.0-55.0) 10/14/19 05:52 Ferritin 386 ng/mL (26-388) 10/14/19 05:52 Total Bilirubin 0.40 mg/dL (0.20-1.00) 10/14/19 05:52 AST 29 U/L (15-37) 10/14/19 05:52 ALT 48 U/L (16-61) 10/14/19 05:52 Alkaline Phosphatase 50 U/L (45-117) 10/14/19 05:52 Total Protein 6.3 g/dL (6.4-8.2) L 10/14/19 05:52 Albumin 2.7 g/dL (3.2-5.0) L 10/14/19 05:52 Globulin 3.6 g/dL (2.2-4.2) 10/14/19 05:52 Albumin/Globulin Ratio 0.8 RATIO (0.9-2.4) L 10/14/19 05:52 Triglycerides 177 mg/dL (-199) 10/20/19 06:15 Cholesterol 172 mg/dL (200) 10/20/19 06:15 LDL Cholesterol 106 mg/dL (0-130) 10/20/19 06:15 VLDL Cholesterol 35 mg/dL (5-40) 10/20/19 06:15 HDL Cholesterol 31 mg/dL (40-) L 10/20/19 06:15 Ur Random Microalbumin 56.1 mg/L (NO RANGE EST.) 10/14/19 18:35 Urine Creatinine 125.00 mg/dL (NO RANGE EST.) 10/14/19 18:35 Microalb/Creat Ratio 44.9 mg/g CRE (<30 mg/g CRE) H 10/14/19 18:35 POC Glucose 134 mg/dL (70-110) H 10/22/19 06:03 Interpretation Summary-June 2018 The study was technically difficult. Contrast injection was performed. Based upon the 2D echocardiographic and contrast enhanced images obtained there appears to be grossly normal left ventricular size, wall motion, and systolic function. The estimated ejection fraction is 60 %. The left atrium is mildly enlarged. There is mild mitral annular calcification. Extension of the mitral annular calcification onto the posterior mitral valve leaflet. Trivial mitral valve insufficiency. Trivial tricuspid valve insufficiency. Mild focal aortic valve calcification. Unable to estimate RV systolic pressure/pulmonary artery pressure due to technically difficult study. Diastolic function is indeterminate. none Operations: None Procedures: None Summary of Care Provided: Patrick Smith is a 69 year old M with a past medical history of hypertension, diabetes mellitus type 2, hyperlipidemia, morbid obesity, small cell lung cancer with right upper lobe lobectomy and several areas of excision left lung, cancer of the tongue with hemiglossectomy, bilateral carotid stenosis, chronic back pain, SUJEY, COPD/Gold 2 classification, chronic respiratory failure with hypoxia, infrarenal abdominal aortic aneurysm, history of bipolar disorder, chronic diastolic congestive heart failure, left atrial enlargement, old myocardial infarction, coronary artery disease, PTCA with stent in the right coronary artery on 06/22/2008, history of alcoholism (quit in the ), history of illicit drug use in the 70s (quit in the ), anemia of uncertain etiology, suspected atrial fibrillation, recent endovascular L ICA/CCA stent (Dr. Call at [facility]) and recent embolic left middle cerebral artery CVA with petechial hemorrhages post stroke who was admitted to the IPRU at [facility] on 10/13/19 for post stroke debility including mixed aphasia, right-sided weakness, cognitive dysfunction and dysphagia for 3 hours of therapy daily to restore function at or near his prior level of independence before the CVA. He lives in a house by himself and has no steps. He has elevated toilet seats but has no grab bars in the shower. He was not using an AD for ambulation prior to the recent stroke but, he does admit to wall walking and furniture walking. He has never been and he has no children. He has a sister who lives close and can help him. He was getting meals on wheels at home. Kenny does not check his blood sugars at home and he does not follow a calorie diet or even a carb controlled diet. Significant lab during his admission to the rehab unit included a hemoglobin A1c of 7.8, LDL of 106 and a low HDL at 31. Hemoglobin at admission to the rehab unit was 10.8 and increased to 12.2 prior to discharge. Microalbumin/creatinine ratio was mildly increased at 44.9 and he is on an KRISTA. the initial BP's were high and his drug regimen was adjusted. Diastolics were well controlled prior to DC but the systolics are still mildly elevated and the Amlodipine was increased to 10 mg daily prior to DC. Patrick was requiring only minimal insulin on a 2000 calorie diet. We discussed with him that he could be controlled on oral agents only if he could stick to a calorie controlled and he wanted to try this. He met with the leather sprayer for education. Lantus was discontinued and he was started on Amaryl 1 mg BID and Tradjenta 5 mg daily. His blood sugars are controlled on this regimen. 1 day prior to discharge he ambulated 150 feet with a wheeled walker. He complained of pain in his low back and his legs with ambulation. He was able to a send/descend 1 curb step with a wheeled walker and standby assistance. He was independent with eating, grooming, bathing, upper body dressing, lower body dressing and tub/shower transfer prior to discharge. While in the shower his pulse ox dropped to 86% but he had no oxygen on. It quickly came up to 92% after he sat down. He continued to require moist cues for safety when turning to pivot. He will parked the wheeled walker and reach for the chair surface prior to being fully aligned with the surface. He has mild/moderate cog nitive?linguistic impairment characterized by functional deficits in short-term memory, word retrieval and attention. He has mild dysarthria. He was on regular textures and thin liquids at the time of discharge. He was discharged with home health and will have continued PT/OT/ST/SN. He has all the durable medical equipment that he will require at home. He will follow up with Dr. Calvillo, Dr. Call, Dr. Waldron and Tiffanie Begum NP (neurology) after DC. He is not allowed to drive. He will be getting a 30 day event monitor post DC since it is suspected he has PAF. He will check his blood sugars at home at least twice a day and vary the times. He will bring his glucometer to the appt with Dr. Calvillo this coming week. Alert, oriented x3, cooperative, no apparent distress. Mucous membranes are dry. Lungs-diminished throughout but clear to auscultation without wheezes, rales or rhonchi. Heart-regular rate and rhythm, normal S1, normal S2, very soft 1/6 to 2/6 systolic murmur at the second right intercostal space. Abdomen-obese, soft, nontender, nondistended, normal bowel sounds heard. No guarding with palpation No calf tenderness No facial asymmetry, horizontal gaze is intact, no visual field cuts, mild drift with the right upper extremity and mild drift with the left lower extremity but less than at admission to the rehab unit, no limb ataxia, no neglect This note was generated with [employer]Roll dictation software. It may contain incorrect words, spelling, and punctuation that were not noted in checking the note before signing. Patient Problems: Active and Suspected Problems (Last Reviewed 10/14/19 @ 13:[address] 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) (Acute) Cerebrovascular accident, embolic (Acute) Aphasia (Acute) Mixed expressive and receptive Dysphagia (Acute) Right sided weakness (Acute) Debility (Acute) Nontraumatic acute cerebral hemorrhage (Acute) petechial hemorrhage in the L brain following embolic CVA to the left MCA M1 branch Atrial fibrillation (Suspected) Anemia (Acute) History of left common carotid artery stent placement (Acute) endovascular - Physical Exam Vitals/I&O's: Vital Signs Temp Pulse Resp BP Pulse Ox 98.3 F 69 16 144/71 H 92 10/22/19 07:00 10/22/19 08:00 10/22/19 07:00 10/22/19 08:00 10/22/19 07:12 Oxygen Flow Rate (L/min) 2 Oxygen Delivery Method Room Air Weight: 270 lb 1.06 oz Body Mass Index (BMI) 38.6 Finger Stick Blood Glucose 171 Intake and Output for Last 24 Hours 10/20/19 10/21/19 10/22/19 23:59 23:59 23:59 Intake Total 960 / 960 1080 / 1080 480 / 480 Output Total 1470 / 1470 750 / 750 Balance -510 / -510 330 / 330 480 / 480 Laboratory Results 10/21/19 11:41: POC Glucose 81 10/21/19 16:11: POC Glucose 102 10/21/19 21:09: POC Glucose 197 H 10/22/19 06:03: POC Glucose 134 H Current Medications Acetaminophen (Tylenol) 650 mg PO Q4H PRN PRN PRN Reason: Pain Score 1-10/10 Last Admin: 10/22/19 10:04 Dose: 650 mg Documented by: Albuterol Sulfate (Ventolin Aerosols) 2.5 mg INHALATION Q6H PRN PRN PRN Reason: shortness of breath or wheezing Amlodipine Besylate (Norvasc) 5 mg PO DAILY [facility] Last Admin: 10/22/19 08:04 Dose: 5 mg Documented by: Aspirin (Aspirin, Baby) 81 mg PO DAILY@0800 [facility] Last Admin: 10/22/19 08:04 Dose: 81 mg Documented by: Atorvastatin Calcium (Lipitor) 40 mg PO QHS [facility] Last Admin: 10/21/19 21:15 Dose: Not Given Documented by: Benzonatate (Tessalon Perle) 100 mg PO Q6H PRN PRN PRN Reason: COUGH Bisacodyl (Dulcolax) 10 mg RECTAL .PRN X 1 PRN PRN Reason: Constipation Capsaicin (Zostrix) 1 applic TOPICAL TID PRN PRN; Protocol PRN Reason: pain Last Admin: 10/19/19 15:00 Dose: 1 applicatio Documented by: Chlorhexidine Gluconate (Peridex) 15 ml PO BID [facility] Last Admin: 10/22/19 08:13 Dose: 15 ml Documented by: Clopidogrel Bisulfate (Plavix) 75 mg PO DAILY [facility] Last Admin: 10/22/19 08:05 Dose: 75 mg Documented by: Glimepiride (Amaryl) 2 mg PO DAILY@0800 [facility] Last Admin: 10/22/19 08:04 Dose: 2 mg Documented by: Insulin Human Lispro (Humalog Kwikpen (Bkc)) 0 unit SC ACHS [facility]; Protocol Last Admin: 10/22/19 06:03 Dose: Not Given Documented by: Ipratropium [place] (Atrovent Nasal [place] (G)) 2 spray NASAL BID [facility] Last Admin: 10/22/19 08:06 Dose: 2 sprays(dnu) Documented by: Linagliptin (Tradjenta) 5 mg PO DAILY [facility] Last Admin: 10/22/19 08:05 Dose: 5 mg Documented by: Lisinopril (Zestril) 5 mg PO DAILY [facility] Last Admin: 10/22/19 08:04 Dose: 5 mg Documented by: Magnesium Hydroxide (Milk Of Magnesia) 30 ml PO .PRN X 1 PRN PRN Reason: Constipation Metoprolol Tartrate (Lopressor (Beta Daniel)) 12.5 mg PO BID [facility] Last Admin: 10/22/19 08:00 Dose: 12.5 mg Documented by: Multi-Ingredient Ointment (Aquaphor) 1 applic TOPICAL DAILY@2200 [facility]; Protocol Last Admin: 10/21/19 21:16 Dose: Not Given Documented by: Senna/Docusate Sodium (Senokot-S, Layne-Colace) 2 tablet PO BID [facility] Last Admin: 10/22/19 08:06 Dose: Not Given Documented by: Discharge Activity: May Not Drive, May Shower, Use Walker, - - Do the exercises given to you by the therapists twice a day Weight Bearing Status: Full weight bearing Keep extremity elevated above heart level: Legs - when seated to prevent swelling Call your doctor if you observe: Fever of 101 or Higher, Numbness or Tingling - that is different from when you left the rehab unit, Inability to urinate, Inability to have a bowel movement, Dizziness, Fainting spells, Swelling in the ankles, Chest pain, Increased palpitations (irregular heartbeat), Calf discomfort, Uncontrolled pain Home Medications: Medications to take at Discharge metoprolol tartrate 50 mg tablet 12.5 mg PO BID tab 07/21/17 Clopidogrel Bisulfate [Plavix] 75 mg PO DAILY 08/11/18 Albuterol Aerosols [Ventolin Aerosols] 2.5 mg INHALATION Q6H PRN PRN 10/13/19 Acetaminophen [Tylenol Tablet] 650 mg PO Q4H PRN PRN tablet 10/22/19 Amlodipine [Norvasc] 10 mg PO DAILY #30 tab 10/22/19 Aspirin [Aspirin, Baby] 81 mg PO DAILY@0800 #30 tab.chew 10/22/19 Atorvastatin Calcium [Lipitor] 40 mg PO QHS #30 tab 10/22/19 Glimepiride [Amaryl] 1 mg PO BID #60 tab 10/22/19 Ipratropium [place] 0.06% [ATROVENT NASAL SPRAY] 2 spray NASAL BID #1 nasal.sry 10/22/19 Linagliptin [Tradjenta] 5 mg PO DAILY #30 tab 10/22/19 Lisinopril [Zestril] 5 mg PO DAILY #30 tab 10/22/19 Following Prescrptions Were Given to Patient: Glimepiride [Amaryl] 1 mg PO BID #60 tab Transmission Status: Pending to [facility]30 Aspirin [Aspirin, Baby] 81 mg PO DAILY@0800 #30 tab.chew Transmission Status: Pending to [facility]30 Ipratropium [place] 0.06% [ATROVENT NASAL SPRAY] 2 spray NASAL BID #1 nasal.sry Transmission Status: Pending to [facility]30 Atorvastatin Calcium [Lipitor] 40 mg PO QHS #30 tab Transmission Status: Pending to [facility]30 Amlodipine [Norvasc] 10 mg PO DAILY #30 tab Transmission Status: Pending to [facility]30 Linagliptin [Tradjenta] 5 mg PO DAILY #30 tab Transmission Status: Pending to [facility]30 Lisinopril [Zestril] 5 mg PO DAILY #30 tab Transmission Status: Pending to [facility]30 Primary Care Physician: Bruce Calvillo Chi, MD [Primary Care Provider] - Please Follow Up With: Dr. Calvillo When: Friday Please Follow Up With: Dr. Call Please Follow Up With: Tiffanie Begum-BUILDING CODE ADMINISTRATOR neurology When: Friday Please Follow Up With: Dr. Waldron's PA-C Yamileth When: Please Follow Up With: 30 Day event monitor Patient Instructions: What Is Atrial Flutter/Atrial Fibrillation?, Diabetes: Understanding Carbohydrates, MyPlate Worksheet: 2,000 Calories Minutes spent on discharge:: 40 Patient Condition:: Good Medical Necessity - Tobacco Use Smoking Status: Former smoker Tobacco Use: Cigarettes Meaningful Use Info Meaningful Use Diagnoses (Choose all that apply): Ischemic CVA - CVA Therapy Assessed for PT,OT and/or ST?: Yes - Ischemic Stroke Antithrombotic order at d/c?: Yes Dx of Atrial fib/flutter?: No Anticoagulant at discharge?: No Reason anticoagulant not ordered: Treatment not Indicated - will have a 30 day event monitor at [place] because PAF is suspected Statins at discharge?: Yes Primary Dx Acute Ischemic CVA?: Yes IV tPA ordered during stay?: No Reason IV t-PA not ordered: Treatment not Indicated - He had his acute p resentation to [facility] and came to [facility] for rehab post stroke Inpatient E&M: [id number] Disch Hosp
[2019-10-22 11:25] LABS: Bedside Glucose 138 mg/dL (70-110)
--- NOTE | 2019-10-22 14:02 | NURSING ---
pt calling out freq this afternoon requesting help for menial things like asking staff to wipe after bms, helping get into bed, pulling covers up when are already pulled up [facility]. therapy made aware. pt mod I prior to this and supposed to go home [place]. when pt confronted confessed that was nervous about going home and doing for self pt able to do for self however. geremias cutler aware and will talk with pt
[2019-10-22 16:35] LABS: Bedside Glucose 110 mg/dL (70-110)
[2019-10-22 21:41] LABS: Bedside Glucose 208 mg/dL (70-110)
[2019-10-22] MEDS: Mineral Oil/Petrolatum Cr 1.75oz Bottle 1 APPLIC TOPICAL (23:02)
[2019-10-22] MEDS: Atorvastatin Calcium 40 MG Tablet PO (23:03)
[2019-10-22] MEDS: Insulin Lispro 100 UNIT/ML INSULN.PEN SC (23:04)
[2019-10-23 05:00] VITALS: BMI 38.6
[2019-10-23 06:19] VITALS: BP 156/72; PULSE 63; RESP 16
[2019-10-23 06:20] LABS: Bedside Glucose 134 mg/dL (70-110)
[2019-10-23] MEDS: Glimepiride 2 MG Tablet PO (08:38)
[2019-10-23] MEDS: Lisinopril 5 MG Tablet PO (08:38)
[2019-10-23] MEDS: Aspirin 81 MG TAB.CHEW PO (08:38)
[2019-10-23] MEDS: Clopidogrel Bisulfate 75 MG Tablet PO (08:38)
[2019-10-23 08:39] VITALS: PULSE 72
[2019-10-23] MEDS: Metoprolol Tartrate 25 MG Tablet 12.5 MG PO (08:39)
[2019-10-23] MEDS: LINAGLIPTIN 5 MG TABLET PO (08:40)
[2019-10-23] MEDS: amLODIPine 5 MG Tablet PO (08:41)
[2019-10-23] MEDS: Ipratropium Bromide 0.06% NASAL SPRAY 2 SPRAY NASAL (08:41)
[2019-10-23] MEDS: Chlorhexidine 480 ML 15 ML PO (08:42)
[2019-10-23 10:16] VITALS: BMI 38.6
[2019-10-23] MEDS: Acetaminophen 325 MG Tablet 650 MG PO (10:32)
[2019-10-23 11:00] VITALS: BP 123/63; PULSE 64; RESP 16; TEMP 36.2; O2SAT 94
[2019-10-23 11:46] LABS: Bedside Glucose 128 mg/dL (70-110)
[2019-10-23 13:00] VITALS: BP 123/63; PULSE 64; RESP 16; TEMP 36.2; O2SAT 94
--- NOTE | 2019-10-23 13:00 | NURSING ---
Discharge instructions given to patient and verbalized understanding.
== END 2019-10-23 13:00 | disposition home health service (06) | DRG 57 ==
PROVIDERS: Admitting Provider Internal Medicine; PCP Family Medicine Geriatric Medicine; Visit Provider Internal Medicine
DX: I69.351 Hemiplegia and hemiparesis following cerebral infarction affecting right dominant side (principal); J96.11 Chronic respiratory failure with hypoxia; I50.32 Chronic diastolic (congestive) heart failure; I69.320 Aphasia following cerebral infarction; I69.319 Unspecified symptoms and signs involving cognitive functions following cerebral infarction; I69.322 Dysarthria following cerebral infarction; I69.391 Dysphagia following cerebral infarction; R13.10 Dysphagia, unspecified; G47.33 Obstructive sleep apnea (adult) (pediatric); I11.0 Hypertensive heart disease with heart failure; E78.5 Hyperlipidemia, unspecified; Z85.118 Personal history of other malignant neoplasm of bronchus and lung; J44.9 Chronic obstructive pulmonary disease, unspecified; I25.2 Old myocardial infarction; I25.10 Atherosclerotic heart disease of native coronary artery without angina pectoris; F10.21 Alcohol dependence, in remission; E11.65 Type 2 diabetes mellitus with hyperglycemia; E11.40 Type 2 diabetes mellitus with diabetic neuropathy, unspecified; E66.01 Morbid (severe) obesity due to excess calories; Z68.38 Body mass index [BMI] 38.0-38.9, adult; I48.0 Paroxysmal atrial fibrillation; Z86.19 Personal history of other infectious and parasitic diseases; Z85.810 Personal history of malignant neoplasm of tongue; Z95.5 Presence of coronary angioplasty implant and graft; Z87.891 Personal history of nicotine dependence; E11.21 Type 2 diabetes mellitus with diabetic nephropathy
CPT/HCPCS: 36415; 80048; 80053; 80061; 82043; 82570; 82728; 82962; 83036; 83540; 83550; 83735; 84100; 85025; 85027; 92507; 92523; 92526; 92610; 97110; 97112; 97116; 97129; 97130; 97162; 97166; 97530; 97535; 97802; 97803; 99251; G0463

== ENCOUNTER → 2019-11-24 08:56 | Outpatient (CLI) | payer MEDICARE, MEDICAID, SELFPAY ==
[2019-11-01 09:07] VITALS: BMI 36.3
== END ==
PROVIDERS: PCP Family Medicine Geriatric Medicine; Referring Provider Internal Medicine Cardiovascular Disease; Visit Provider Internal Medicine Cardiovascular Disease
DX: I25.10 Atherosclerotic heart disease of native coronary artery without angina pectoris (principal); I49.1 Atrial premature depolarization; I49.3 Ventricular premature depolarization; I48.91 Unspecified atrial fibrillation; Z95.5 Presence of coronary angioplasty implant and graft; I11.0 Hypertensive heart disease with heart failure; I50.32 Chronic diastolic (congestive) heart failure; E78.5 Hyperlipidemia, unspecified; Z86.73 Personal history of transient ischemic attack (TIA), and cerebral infarction without residual deficits

== ENCOUNTER → 2020-01-12 15:33 | Outpatient (CLI) | payer MEDICARE, MEDICAID, SELFPAY ==
[2019-12-08 05:52] VITALS: BMI 34.9
--- NOTE | 2020-01-12 15:40 | RAD_ITS ---
STUDY: X-RAY - ABDOMEN/PELVIS REASON FOR EXAM: Male, 69 years old. Fecal impaction. TECHNIQUE: AP supine and upright views of the abdomen and pelvis. COMPARISON: CT of the abdomen and pelvis, 09/08/2017. Abdomen, 11/16/2015. FINDINGS: Normal visualized lung bases. Contrast is seen throughout nondistended colon. There is an air-fluid level in the mildly distended stomach. There is air in nondilated small bowel bowel loop in the left upper quadrant. No other small bowel air is noted. The appendix appears normal. There is no demonstrated free abdominal air. The visualized liver, spleen and kidneys are grossly normal in size and morphology. Cholecystectomy clips are seen in the right upper quadrant. Normal soft tissue structures. There are diffuse degenerative changes of the visualized lumbar spine. RAD/Abd Inc Decub and/or Erect IMPRESSION: 1. No evidence of obstruction. Contrast is seen throughout the colon. 2. Air-fluid level in the stomach. 3. Status post cholecystectomy. Electronically Signed: Jayme Tyson DO at 18:46 EDT Tel [phone], Service support ,
== END ==
PROVIDERS: PCP Family Medicine Geriatric Medicine; Referring Provider Family Medicine Geriatric Medicine; Visit Provider Family Medicine Geriatric Medicine
DX: K56.41 Fecal impaction (principal)
CPT/HCPCS: 74019

== ENCOUNTER → 2020-01-26 | Outpatient (CLI) | payer MEDICARE, MEDICAID, SELFPAY ==
[2020-01-18 13:32] VITALS: BMI 34.9
--- NOTE | 2020-01-26 09:15 | TISS_PTH ---
PATIENT: ARON AMES LOC: [facility] U#:[id number] AGE/SX: 69/M ROOM: RE01/26/[address]: Dr. Artemio Davis MD : 1950 BED: DIS: 01/26/2020 SPEC #: [id number] RECD: 01/26/20 15:39 STATUS: GAVIN ABELARDO #: [id number] REZA: 01/26/20 09:[address]: Artemio Davis DEPT: SURGICAL PATHOLOGY RECD BY: Paul Topete ENTERED: 01/27/20 08:53 SP TYPE: Tissue Bx MARIA ISABEL DR: Dr. Bruce Calvillo MD Tissues: Palate, NOS Procedures: Surgery Specimen Level IV HEADER OPERATION: Soft palate leukoplakia PRE-OP DIAGNOSIS: Soft palate leukoplakia TISSUE SUBMITTED: Soft palate leukoplakia MICROSCOPIC DIAGNOSIS Soft palate leukoplakia, biopsy: A piece of squamous mucosa with hyperkeratosis, parakeratosis and mild epithelial atypia. Negative for carcinoma. SURI:byron 01/28/20 COMMENT Correlation with clinical findings and appropriate follow up are necessary. 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 This case has been reviewed in consultation with Dr. Velazquez who concurs with the above diagnosis. MICROSCOPIC DESCRIPTION Slides are reviewed. GROSS DESCRIPTION Received in fixative is one container labeled with the patient's name and designated soft palate leukoplakia. The specimen consists of a piece of gamez mucosal tissue measuring 0.3 x 0.2 x 0.1 cm. The specimen is totally submitted in one cassette. / SURI:byron 01/27/20 TC:5 CPT: 41008
== END | disposition home or self-care (01) ==
LOC: LABSPEC 15:12
PROVIDERS: PCP Family Medicine Geriatric Medicine; Referring Provider Otolaryngology; Visit Provider Otolaryngology
DX: K13.21 Leukoplakia of oral mucosa, including tongue (principal)
CPT/HCPCS: 88305

== ENCOUNTER → 2020-01-27 13:08 | Outpatient (CLI) | payer MEDICARE, MEDICAID, SELFPAY ==
[2020-01-18 13:32] VITALS: BMI 34.9
[2020-01-27 15:52] LABS: Absolute Lymphocyte Count 2.41 X10^3/uL (0.83-4.51); Absolute Neutrophil Count 5.2 X10^3/uL (2.0-7.7); Basophil# 0.05 X10^3/uL; Basophil% 0.6 % (0-1); Eosinophil# 0.36 X10^3/uL; Eosinophils% 4.1 % (0-5); Hematocrit 46.1 % (40-54); Lymphocyte # 2.41 X10^3/ul (4.0); Lymphocyte % 27.5 % (19-41); Mean Corp Hgb Conc 32.5 g/dL (32-36); Mean Corpuscular Hgb 27.8 pg (27.0-32.0); Mean Corpuscular Volume 85.5 fL (80-94); Mean Platelet Vol. 12.6 fl (6.2-12.0); Monocyte# 0.79 X10^3/uL; NRBC Flagged by Analyzer 0 % (0-5); Neutrophil # 5.15 X10^3/uL (2.7-7.7); Neutrophil % 58.7 % (47-70); Platelet Count 191 K/mm3 (150-450); RBC Distribution Width CV 15.4 % (11.6-14.6); RBC Distribution Width SD 47.7 fl (35.1-43.9); Red Blood Count 5.39 M/mm3 (4.6-6.2); White Blood Count 8.8 K/mm3 (4.4-11.0)
[2020-01-27 16:14] LABS: Vitamin D,25 Hydroxy 23.4 ng/mL
[2020-01-27 16:29] LABS: ALB/GLOB Ratio 0.8 RATIO (0.9-2.4); AST(SGOT) 22 U/L (15-37); Alanine Aminotransfer ALT/SGPT 38 U/L (16-61); Albumin, Serum 3.4 g/dL (3.2-5.0); Alkaline Phosphatase 64 U/L (45-117); Anion Gap 7 (5-15); BUN 17 mg/dL (7-18); BUN/Creat Ratio 17.3 RATIO (10-20); Calcium,Total 9.1 mg/dL (8.5-10.1); Chloride 106 mmol/L (98-107); Creatinine, Serum 0.98 mg/dL (0.70-1.30); EST Glomerular Filtration Rate 80 mL/min (>60); Est Glom Filt Rate - Afr Amer 97 mL/min (>60); Globulin 4.2 g/dL (2.2-4.2); Glucose 124 mg/dL (74-106); PSA,Total - Annual Screen 0.87 ng/mL (0.00-4.00); Protein, Total 7.6 g/dL (6.4-8.2); Sodium Level 140 mmol/L (136-145); Thyroid Stim Hormone (TSH) 0.38 uIU/mL (0.358-3.74)
== END ==
PROVIDERS: PCP Family Medicine Geriatric Medicine; Visit Provider Family Medicine Geriatric Medicine
DX: E11.9 Type 2 diabetes mellitus without complications (principal); E55.9 Vitamin D deficiency, unspecified; I10 Essential (primary) hypertension; Z12.5 Encounter for screening for malignant neoplasm of prostate
CPT/HCPCS: 36415; 80053; 82306; 84153; 84443; 85025; G0103

== ENCOUNTER → 2020-01-27 15:09 | Outpatient (CLI) | payer MEDICARE, MEDICAID, SELFPAY ==
[2020-01-18 13:32] VITALS: BMI 34.9
--- NOTE | 2020-01-27 15:11 | VDLE_ITS ---
Reason For Study: Edema RIGHT LEFT GSV is normal. GSV is normal. CFV is compressible, spontaneous, phasic, CFV is compressible, spontaneous, phasic, competent and demonstrates normal competent, and demonstrates normal augmentation. augmentation. FV is compressible, spontaneous, phasic, FV is compressible, spontaneous, phasic, competent and demonstrates normal competent and demonstrates normal augmentation. augmentation. POP V is compressible, spontaneous, phasic, POP V is compressible, spontaneous, phasic, competent and demonstrates normal competent and demonstrates normal augmentation. augmentation. T/P Trunk is compressible. T/P Trunk is compressible. PTV is compressible. PTV is compressible. RT PerV is compressible. LT PerV is compressible. Procedure Exam performed in department. This is a venous duplex using B-mode, color flow and spectral Doppler. A preliminary report was called and/or faxed to [facility]. Interpretation Summary Deep veins of the lower extremities are bilaterally patent and compressible segmentally. There is no evidence of deep vein thrombosis on either side. Valvular competence appears intact within the proximal deep venous systems bilaterally. The great saphenous veins appear bilaterally patent and compressible segmentally. Ordering Physician: Bruce Calvillo Referring Physician: Bruce Calvillo Chi Performed By: Nyasia Franklin RVT
== END ==
PROVIDERS: PCP Family Medicine Geriatric Medicine; Referring Provider Family Medicine Geriatric Medicine; Visit Provider Family Medicine Geriatric Medicine
DX: R60.0 Localized edema (principal); E11.9 Type 2 diabetes mellitus without complications; E55.9 Vitamin D deficiency, unspecified; I10 Essential (primary) hypertension; Z12.5 Encounter for screening for malignant neoplasm of prostate
CPT/HCPCS: 36415; 80053; 82306; 84153; 84443; 85025; 93970; G0103

== ENCOUNTER → 2020-01-28 08:13 | Outpatient (CLI) | payer MEDICARE, MEDICAID, SELFPAY ==
[2020-01-18 13:32] VITALS: BMI 34.9
--- NOTE | 2020-01-28 08:14 | CT_ITS ---
STUDY: CT CHEST WITHOUT CONTRAST REASON FOR EXAM: Male, 69 years old. LUNG CANCER F/U. RIGHT UPPER LOBE RESECTION RADIATION DOSAGE (If Supplied By Facility): CTDIvol = ( 19.31 ) mGy, DLP = ( 718.98 ) mGycm TECHNIQUE: Transaxial imaging was performed without the administration of intravenous contrast material. Multiplanar coronal and sagittal images were reformatted. Individualized dose optimization techniques were used for this CT. COMPARISON: Comparison is made with prior examination dated 08/13/2016. FINDINGS: The patient is status post right lower lobe lobectomy. Stable postoperative changes are seen at the right lung base. Stable mild increased markings at the left lung base as well. There is no demonstrated pleural abnormality. There are calcifications of the coronary arteries. There are multiple small lymph nodes within the mediastinum, which are normal in size and morphology most compatible with reactive lymph hyperplasia. Calcified right hilar lymph nodes. Normal unenhanced pulmonary arteries. There is atherosclerotic calcification of the aortic arch with tortuosity and elongation of the aortic arch and descending thoracic aorta. There are multi-level degenerative changes of the thoracic spine. There is no demonstrated abnormality of the visualized upper abdomen. CT/Chest without Contrast IMPRESSION: Stable examination. Electronically Signed: Terry Sam, at 13:15 EDT , Service support ,
== END ==
PROVIDERS: PCP Family Medicine Geriatric Medicine; Referring Provider Family Medicine Geriatric Medicine; Visit Provider Family Medicine Geriatric Medicine
DX: C34.90 Malignant neoplasm of unspecified part of unspecified bronchus or lung (principal)
CPT/HCPCS: 71250

== ENCOUNTER 2020-02-17 06:13 | Day surgery (SDC) | payer MEDICARE, MEDICAID, SELFPAY ==
--- NOTE | 2020-01-18 01:50 | HP_ITS ---
Intake Vital Signs 01/18/20 BP 169/83 H 01/18/20 Blood Pressure Location Lt brachial 01/18/20 Position Sitting 01/18/20 Height 6 ft 01/18/20 Weight: 257 lb 6 oz 01/18/20 BMI 34.9 01/18/20 BP 185/133 H 01/18/20 Blood Pressure Location Rt brachial 01/18/20 Position Sitting 01/18/20 Respiration 22 H 01/18/20 Pulse 71 01/18/20 Temp 97.5 F L 01/18/20 Temp Source Temporal 01/18/20 Pulse Oximetry (%) 98 01/18/20 Oxygen Delivery Method nasal canula 01/18/20 Oxygen Flow Rate (L/min) 3 Intake Visit Reasons: EGD/ COLONOSCOPY Chief Complaint: abd pain, weight loss Curriculum And Assessment Director Required: No Is patient in pain?: Yes Allergies Gfojtym-Pov-Djg Reductase Inhibitor Allergy (Verified 01/18/20 13:32) Other atorvastatin Adverse Reaction (Severe, Verified 01/18/20 13:32) myalgias hydrocodone [From Lortab] Adverse Reaction (Severe, Verified 01/18/20 13:32) UNKOWN tramadol [From Ultram] Adverse Reaction (Severe, Verified 01/18/20 13:32) UNKOWN zolpidem [From Ambien] Adverse Reaction (Severe, Verified 01/18/20 13:32) UNKOWN alprazolam [From Xanax] Adverse Reaction (Verified 01/18/20 13:32) Other loratadine Adverse Reaction (Verified 01/18/20 13:32) Unknown metformin Adverse Reaction (Verified 01/18/20 13:32) Abd cramps/diarrhea oxycodone [Oxycodone] Adverse Reaction (Verified 01/18/20 13:32) Itching oxycodone HCl [From Percocet] Adverse Reaction (Verified 01/18/20 13:32) Itching Penicillins Adverse Reaction (Verified 01/18/20 13:32) Vomiting Medications Clopidogrel Bisulfate [Plavix] 75 mg PO DAILY 08/11/18 [History Confirmed 01/18/20] Acetaminophen [Tylenol Tablet] 650 mg PO Q4H PRN PRN tab 10/22/19 [Rx Confirmed 01/18/20] Amlodipine [Norvasc] 10 mg PO DAILY #30 tab 10/22/19 [Rx Confirmed 01/18/20] Aspirin [Aspirin, Baby] 81 mg PO DAILY@0800 #30 tab.chew 10/22/19 [Rx Confirmed 01/18/20] Glimepiride [Amaryl] 1 mg PO BID #60 tab 10/22/19 [Rx Confirmed 01/18/20] Ipratropium [employer] 0.06% [ATROVENT NASAL SPRAY] 2 spray NASAL BID #1 nasal.sry 10/22/19 [Rx Confirmed 01/18/20] Linagliptin [Tradjenta] 5 mg PO DAILY #30 tab 10/22/19 [Rx Confirmed 01/18/20] Lisinopril [Zestril] 5 mg PO DAILY #30 tab 10/22/19 [Rx Confirmed 01/18/20] metoprolol tartrate 25 mg tablet 12.5 mg PO BID tab 11/01/19 [History Confirmed 01/18/20] fluticasone propionate 50 mcg/actuation nasal spray,suspension 1 spray INTRANASAL BID #18.2 ml 12/08/19 [Rx Confirmed 01/18/20] [facility] Medical History Chronic diastolic (congestive) heart failure (Chronic) Hyperlipidemia (Chronic) Dyspnea (Chronic) Old myocardial infarction (Chronic) Premature atrial contractions (Chronic) Premature ventricular contraction (Chronic) Atherosclerotic heart disease of [place] coronary artery without angina pectoris (Chronic) Aneurysm of infrarenal abdominal aorta (Chronic) Benign essential hypertension (Chronic) Type 2 diabetes mellitus (Chronic) Bipolar disorder (Acute) Depression (Acute) SUJEY (obstructive sleep apnea) (Acute) Panic disorder (Acute) 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) COPD (chronic obstructive pulmonary disease) (Chronic) Hepatitis B (Chronic) History of lung cancer (Chronic) Lung nodule (Chronic) Surgical History Postsurgical percutaneous transluminal coronary angioplasty (PTCA) status (Chronic) Presence of stent in coronary artery (Chronic ~06/22/08) History of lobectomy of lung (Chronic) History of lung surgery (Chronic) History of cholecystectomy (Resolved ~2011) History of tongue cancer (Resolved ~2012) Family History Brother Hypertension Mother Heart disease CHF (congestive heart failure) Father Cancer kidney Social History (Updated 01/18/20 @ 13:[address] Jose Francisco Lorenzo MD) Smoking Status: Former smoker quit date: 04/28/99 pack-years: 20 how long ago did patient quit smokin years ago alcohol intake: former year quit: 1989 substance use type: does not use caffeine: No HPI HPI HPI: ARON AMES, is a 69 M who presents to the office today for HPI HPI Surgical H&P: Yes HPI: ARON AMES, is a 69 M who presents to the office today for Abdominal pain and constipation. The patient reports that about a month ago he started having mid abdominal pain especially after eating. Patient reports no nausea vomiting. He also reports in the last month he has lost 30 pounds due to not eating and he has had new onset constipation as well. Patient reports that he has CT scan done a few weeks ago in [place]. Patient was surgically treated for tongue and lung cancer. He is currently on 3 L of oxygen. ROS General General: Yes weight change and appetite; no fatigue, colon cancer, breast cancer or weakness Additional Details: tongue cancer lung cancer HEENT HEENT: No difficulty swallowing, eye injury, eye surgery, swollen glands or hoarseness Endo Endocrine: No thyroid disease, diabetes mellitus, thyroid cancer, Hair loss, heat intolerance or cold intolerance Cardio Cardiovascular: Yes heart disease, high blood pressure, heart attack and heart stent; no murmur, pacemaker, atrial fibrillation, palpitations, shortness of breat with exertion or chest pain Psych Psychiatric: Yes depression and anxiety; no hearing voices Resp Respiratory: No shortness of breath, Yes sleep apnea, Yes cough, Yes COPD, No asthma, No emphysema, No wheezing Gastro Gastrointestinal: Yes abdominal pain, No nausea or vomiting, No diarrhea, Yes constipation, No blood in stool, No acid reflux, No hemorrhoids, No ulcers, No gallbladder problem, No black,tarry stools Guillermo Hematologic: Yes blood thinners, No blood disorders, No bleeding, No anemia, No blood clots Neuro Neurologic: No weakness Exam Const General: cooperative Orientation: alert, oriented x3 Resp Effort & Inspection: able to speak in complete sentences Auscultation: breath sounds absent Cardio Rate: regular rate Rhythm: regular rhythm Heart Sounds: no murmurs GI Inspection: non-distended Palpation: soft, nontender Assessment & Plan Problems 1. Constipation, unspecified constipation type K59.00 2. Epigastric pain R10.13 Plan The patient reports he is having abdominal pain after eating. He was given a PPI and Carafate by Dr. Calvillo, which she has not started taking. Patient reports the pain is in the middle to epigastric region. He says it occurs immediately after eating and persist through the rest of the day. He is also having new onset constipation which he is never had before. He had his last EGD and colonoscopy 5 years ago which were normal. These problems of all are going on for 1 month and he has had decreased p.o. intake and weight loss during this time. I will obtain his CT scan results from [facility]. Plan for EGD and colonoscopy. I explained endoscopy in detail to the patient. I explained the risks including but not limited to stroke or heart attack with anesthesia, perforation of the GI tract, bleeding, infection. I explained that any of these could necessitate further emergency surgery. The patient understands and all questions were answered sufficiently. The patient wishes to proceed with procedure. We discussed the current risks associated with COVID-19. While it is understood that there is a community spread of COVID-19, the risk of sylvie COVID-19 while at [facility] ([facility]) is very low; however, the risk cannot be completely mitigated because of the community spread of the disease. We discussed in detail the risk of exposure to and/or potential harm posed by the COVID-19 virus with having a surgery/procedure at this time versus the risk of delaying the surgery/procedure. It is not possible to know either the risk of delaying the surgery or procedure or chance of getting an infection with perfect accuracy, but a joint decision was made to proceed at this time with the scheduled surgery/procedure as indicated on the consent form. Patient was notified that we will need to comply with any screening or testing [facility] wishes to perform or that surgery may be delayed for any positive results. Jose Francisco Lorenzo MD Pager: [facility] [address] [place] [address], [address] [place] [address] Office: Orders Orders: Colonoscopy Today K59.00 EGD Today R10.13 Coding Level of Care Code Off vis,new,level 3 Diagnoses Constipation, unspecified constipation type K59.00 ??Constipation type: unspecified constipation type Epigastric pain R10.13 01/18/20 1350 <Electronically signed by Jose Francisco miller MD> Date _ Jose Francisco Lorenzo MD I have seen and examined patient, no changes.
[2020-01-18 13:32] VITALS: BMI 34.9
[2020-02-07 13:35] VITALS: BMI 34.3
[2020-02-17 06:54] VITALS: BP 147/93; PULSE 80; RESP 18; TEMP 36.8; O2SAT 96; BMI 33.7
[2020-02-17] MEDS: Lactated Ringers 1,000 ML 75 ML IV (07:14)
[2020-02-17 07:21] LABS: Bedside Glucose 121 mg/dL (70-110)
--- NOTE | 2020-02-17 07:30 | EGD_PTH ---
PATIENT: ARON AMES LOC: EN U#:[id number] AGE/SX: 69/M ROOM: RE02/17/[address]: Dr. Jose Francisco Lorenzo MD : 1950 BED: DIS: 02/17/2020 SPEC #: [id number] RECD: 02/17/20 08:33 STATUS: GAVIN ABELARDO #: [id number] REZA: 02/17/20 07:[address]: Jose Francisco Lorenzo DEPT: SURGICAL PATHOLOGY RECD BY: Kaitlin Avendano ENTERED: 02/17/20 09:55 SP TYPE: EGD BIOPSY MARIA ISABEL DR: Dr. Bruce Calvillo MD Tissues: A - Gastric mucous membrane B - COLON BIOPSY C - Descending colon Procedures: Surgery Specimen Level IV HEADER OPERATION: Colonoscopy, EGD ([facility] [place]) PRE-OP DIAGNOSIS: Constipation, epigastric pain TISSUE SUBMITTED: A - Antrum biopsy for histo and H. pylori, B - Hepatic flexure polyps (2), C - Descending polyp MICROSCOPIC DIAGNOSIS A. Antrum biopsy: Mild gastritis. See microscopic description and comment. B. Hepatic flexure polyp x2, biopsy: Fragments of tubular adenoma. C. Descending colon polyp, biopsy: Fragments of tubular adenoma. SJ:byron 02/18/20 COMMENT A. The results of immunohistochemistry for Helicobacter pylori will be reported separately ([id number]). MICROSCOPIC DESCRIPTION Slides are reviewed. A. The specimen shows fragments of gastric mucosa with chronic inflammatory cell infiltrates in the lamina propria consisting of lymphocytes and plasma cells, consistent with mild chronic gastritis. GROSS DESCRIPTION A - Received in fixative is one container labeled with the patient's name and designated antrum biopsy. The specimen consists of two irregular fragments of light gamez soft tissue that in aggregate measure 0.6 x 0.2 x 0.1 cm. The specimen is totally submitted in one cassette. B - Received in fixative is one container labeled with the patient's name and designated hepatic flexure polyps. The specimen consists of multiple irregular fragments of light gamez soft tissue that in aggregate measure 1.5 x 0.8 x 0.1 cm. The specimen is totally submitted in one cassette. C - Received in fixative is one container labeled with the patient's name and designated descending polyp. The specimen consists of one irregular fragment of gamez-pink polyp that measures 0.3 x 0.3 x 0.2 cm. Also present in the container are multiple smaller fragments of gamez soft tissue that in aggregate measure 0.3 x 0.2 x 0.1 cm. The specimen is totally submitted in one cassette. / SURI:byron 02/17/20 TC:5 CPT: 96590 x3
--- NOTE | 2020-02-17 07:30 | IMM_PTH ---
PATIENT: ARON AMES LOC: EN U#:[id number] AGE/SX: 69/M ROOM: RE02/17/[address]: Dr. Jose Francisco Lorenzo MD : 1950 BED: DIS: 02/17/2020 SPEC #: [id number] RECD: 02/17/20 11:53 STATUS: GAVIN REClaudia #: [id number] REZA: 02/17/20 07:[address]: Jose Francisco Lorenzo DEPT: IMMUNOHISTOCHEMISTRY RECD BY: Lakia Muñoz ENTERED: 02/17/20 11:58 SP TYPE: IMMUNO OTHR DR: Dr. Bruce Calvillo MD Tissues: A - Stomach, NOS Procedures: H Pylori (initial) PHYSICIAN & INSTITUTION [place] [address] SPECIMEN INFORMATION: Tissue Source: A - Antrum biopsy Clinical Info: Constipation, epigastric pain Specimen Number: [id number] CPT code: 72845 METHODOLOGY: Deparaffinized sections of prefer/formalin-fixed tissue or PAP/DQ stained slides are incubated with monoclonal/polyclonal antibodies/oligonucleotide probes. Localization is made via biotin free immunoperoxidase method. Appropriate controls are performed and reacted as expected. Results on target cell population are indicated in the following table: RESULTS: ANTIBODY / CLONE RESULT Block A H Pylori (polyclonal) negative These tests were developed and their performance characteristics determined by [facility]. They may not have been cleared or approved by the U.S. Food and Drug Administration. The FDA has determined that such clearance or approval is not necessary. INTERPRETATION: A. Antrum biopsy: Negative for Helicobacter pylori organisms. SJ:byron 02/18/20
[2020-02-17 08:10] VITALS: BP 147/93; BP 179/70; PULSE 79; RESP 18; TEMP 36.7; O2SAT 96
--- NOTE | 2020-02-17 08:10 | OP.EGD_ITS ---
Patient Name: Patrick Smith Procedure Date: 02/17/2020 7:26 AM Date of : 1950 Age: 69 Procedure: Upper GI endoscopy Indications: Epigastric abdominal pain Providers: Jose Francisco Lorenzo MD Referring MD: Bruce Calvillo MD Medicines: Monitored Anesthesia Care Patient Profile: This is a 69 year old male. Refer to note in patient chart for documentation of history and physical. Complications: No immediate complications. Estimated blood loss: Minimal. Procedure: Pre-Anesthesia Assessment: - Prior to the procedure, a History and Physical was performed, and patient medications and allergies were reviewed. The patient's tolerance of previous anesthesia was also reviewed. The risks and benefits of the procedure and the sedation options and risks were discussed with the patient. All questions were answered, and informed consent was obtained. Prior Anticoagulants: The patient has taken no previous anticoagulant or antiplatelet agents. After reviewing the risks and benefits, the patient was deemed in satisfactory condition to undergo the procedure. After obtaining informed consent, the endoscope was passed under direct vision. Throughout the procedure, the patient's blood pressure, pulse, and oxygen saturations were monitored continuously. The gastroscope was introduced through the mouth, and advanced to the third part of duodenum. The upper GI endoscopy was accomplished without difficulty. The patient tolerated the procedure well. Scope In: 7:37:19 AM Scope Out: 7:39:40 AM Total Procedure Duration Time 0 hours 2 minutes 21 seconds Findings: The esophagus was normal. The examined duodenum was normal. Two non-bleeding superficial gastric ulcers with no stigmata of bleeding were found in the prepyloric region of the stomach. Biopsies were taken with a cold forceps for Helicobacter pylori testing. Impression: - Normal esophagus. - Normal examined duodenum. - Non-bleeding gastric ulcers with no stigmata of bleeding. Biopsied. Recommendation: - Await pathology results. - Discharge patient to home. - Resume previous diet. - Continue present medications. Procedure Code(s): --- Professional --- 25455, Esophagogastroduodenoscopy, flexible, transoral; with biopsy, single or multiple Diagnosis Code(s): --- Professional --- K25.9, Gastric ulcer, unspecified as acute or chronic, without hemorrhage or perforation R10.13, Epigastric pain CPT copyright 2017 [employer]. All rights reserved. The codes documented in this report are preliminary and upon stock room manager review may be revised to meet current compliance requirements. Jose Francisco Lorenzo MD 02/17/2020 8:09:59 AM This report has been signed electronically. Number of Addenda: 0 Note Initiated On: 02/17/2020 7:26 AM
--- NOTE | 2020-02-17 08:10 | OP.CCLET_ITS ---
02/17/2020 Bruce Calvillo MD [address] [place] [address] Re : Upper GI endoscopy procedure for Patrick Smith Dear Dr. Calvillo This procedure was performed on January. My impressions and recommendations are as follows: Impressions : - Normal esophagus. - Normal examined duodenum. - Non-bleeding gastric ulcers with no stigmata of bleeding. Biopsied. Recommendations : - Await pathology results. - Discharge patient to home. - Resume previous diet. - Continue present medications. My findings are described in the full procedure note, which is enclosed. If I can be of further assistance, please feel free to contact me at Doctor phone number(s): , Work: . Sincerely, Jose Francisco Lorenzo MD 02/17/2020 8:09:59 AM This report has been signed electronically.
--- NOTE | 2020-02-17 08:12 | OP.COLON_ITS ---
Patient Name: Patrick Smith Procedure Date: 02/17/2020 7:40 AM Date of : 1950 Age: 69 Procedure: Colonoscopy Indications: Constipation, Weight loss Providers: Jose Francisco Lorenzo MD Referring MD: Bruce Calvillo MD Medicines: Monitored Anesthesia Care Patient Profile: This is a 69 year old male. Refer to note in patient chart for documentation of history and physical. Last Colonoscopy: none. The patient's first colonoscopy is today. Complications: No immediate complications. Estimated blood loss: Minimal. Procedure: Pre-Anesthesia Assessment: - Prior to the procedure, a History and Physical was performed, and patient medications and allergies were reviewed. The patient's tolerance of previous anesthesia was also reviewed. The risks and benefits of the procedure and the sedation options and risks were discussed with the patient. All questions were answered, and informed consent was obtained. Prior Anticoagulants: The patient has taken no previous anticoagulant or antiplatelet agents. After reviewing the risks and benefits, the patient was deemed in satisfactory condition to undergo the procedure. - Prior to the procedure, a History and Physical was performed, and patient medications and allergies were reviewed. The patient's tolerance of previous anesthesia was also reviewed. The risks and benefits of the procedure and the sedation options and risks were discussed with the patient. All questions were answered, and informed consent was obtained. Prior Anticoagulants: The patient has taken no previous anticoagulant or antiplatelet agents. After reviewing the risks and benefits, the patient was deemed in satisfactory condition to undergo the procedure. After I obtained informed consent, the scope was passed under direct vision. Throughout the procedure, the patient's blood pressure, pulse, and oxygen saturations were monitored continuously. The adult colonoscope was introduced through the anus and advanced to the cecum, identified by appendiceal orifice and ileocecal valve. The colonoscopy was performed without difficulty. The patient tolerated the procedure well. The quality of the bowel preparation was good. Scope In: 7:41:37 AM Scope Withdrawal Time 0 hours 15 minutes 37 seconds Scope Out: 8:04:21 AM Total Procedure Duration Time 0 hours 22 minutes 44 seconds Findings: Three sessile polyps were found in the descending colon and hepatic flexure. The polyps were medium in size. These polyps were removed with a hot snare. Resection and retrieval were complete. To prevent bleeding post-intervention, two hemostatic clips were successfully placed. There was no bleeding at the end of the procedure. Impression: - Three medium polyps in the descending colon and at the hepatic flexure, removed with a hot snare. Resected and retrieved. Clips were placed. Recommendation: - Discharge patient to home. - Resume previous diet. - Continue present medications. - Await pathology results. - Repeat colonoscopy in 3 years for surveillance of multiple polyps. Procedure Code(s): --- Professional --- 77785, Colonoscopy, flexible; with removal of tumor(s), polyp(s), or other lesion(s) by snare technique Diagnosis Code(s): --- Professional --- D12.4, Benign neoplasm of descending colon D12.3, Benign neoplasm of transverse colon (hepatic flexure or splenic flexure) K59.00, Constipation, unspecified R63.4, Abnormal weight loss CPT copyright 2017 [employer]. All rights reserved. The codes documented in this report are preliminary and upon fishing boat captain review may be revised to meet current compliance requirements. Jose Francisco Lorenzo MD 02/17/2020 8:12:11 AM This report has been signed electronically. Number of Addenda: 0 Note Initiated On: 02/17/2020 7:40 AM
--- NOTE | 2020-02-17 08:13 | OP.CCLET_ITS ---
02/17/2020 Bruce Calvillo MD [address] [place] [address] Re : Colonoscopy procedure for Patrick Smith Dear Dr. Calvillo This procedure was performed on January. My impressions and recommendations are as follows: Impressions : - Three medium polyps in the descending colon and at the hepatic flexure, removed with a hot snare. Resected and retrieved. Clips were placed. Recommendations : - Discharge patient to home. - Resume previous diet. - Continue present medications. - Await pathology results. - Repeat colonoscopy in 3 years for surveillance of multiple polyps. My findings are described in the full procedure note, which is enclosed. If I can be of further assistance, please feel free to contact me at Doctor phone number(s): , Work: . Sincerely, Jose Francisco Lorenzo MD 02/17/2020 8:12:11 AM This report has been signed electronically.
[2020-02-17 08:15] VITALS: BP 147/93; BP 177/87; PULSE 80; RESP 18; O2SAT 95
[2020-02-17 08:20] VITALS: BP 147/93; BP 163/89; PULSE 80; RESP 18; O2SAT 95
[2020-02-17 08:25] VITALS: BP 147/93; BP 169/91; PULSE 77; RESP 18; TEMP 37.6; O2SAT 97
== END 2020-02-17 09:02 | disposition home or self-care (01) ==
LOC: EN 06:14 → AC 06:14
PROVIDERS: Anesthesiology; PCP Family Medicine Geriatric Medicine; Referring Provider Family Medicine Geriatric Medicine; Visit Provider Surgery
PROC: 0DJD8ZZ Inspection of Lower Intestinal Tract, Via Natural or Artificial Opening Endoscopic (ICD-10-PCS; CPT 45378; principal; 2020-02-17 07:25)
DX: K29.70 Gastritis, unspecified, without bleeding (principal); K25.9 Gastric ulcer, unspecified as acute or chronic, without hemorrhage or perforation; D12.4 Benign neoplasm of descending colon; D12.3 Benign neoplasm of transverse colon; I11.0 Hypertensive heart disease with heart failure; I50.32 Chronic diastolic (congestive) heart failure; I71.4 Abdominal aortic aneurysm, without rupture; E78.5 Hyperlipidemia, unspecified; I25.2 Old myocardial infarction; J44.9 Chronic obstructive pulmonary disease, unspecified; E11.9 Type 2 diabetes mellitus without complications; F31.9 Bipolar disorder, unspecified; E78.00 Pure hypercholesterolemia, unspecified; I25.10 Atherosclerotic heart disease of native coronary artery without angina pectoris; G47.33 Obstructive sleep apnea (adult) (pediatric); Z86.19 Personal history of other infectious and parasitic diseases; Z85.118 Personal history of other malignant neoplasm of bronchus and lung; Z95.5 Presence of coronary angioplasty implant and graft; Z87.891 Personal history of nicotine dependence
CPT/HCPCS: 43239; 45385; 82962; 87635; 88305; 88342; C9803; J7120; U0003

== ENCOUNTER → 2020-03-08 15:56 | Outpatient (CLI) | payer MEDICARE, MEDICAID, SELFPAY ==
[2020-02-17 06:54] VITALS: BMI 33.7
--- NOTE | 2020-03-08 16:00 | RAD_ITS ---
HISTORY: Lower back pain x1 week. No known injury. ADDITIONAL HISTORY: None provided. EXAMINATION/TECHNIQUE: XR Spine Lumbar 2 or 3 Views Number of images including paperwork: 3 COMPARISON: 12/29/2015 FINDINGS: VERTEBRAE: No acute fracture. VERTEBRAL ALIGNMENT: No traumatic subluxation. DISKS AND JOINTS: Mild discogenic degenerative changes with osteophyte formation. Facet arthropathy, most pronounced L4-S1. There has been some progression compared to 2016. SOFT TISSUES: Vascular calcifications. RAD/Lumbar Spine 2 or 3 Views IMPRESSION: No acute findings. Lumbar spondylosis. at 0305 Reported and signed by: Cristal Vang MD Electronically Signed: Cristal Vang MD at 3:05 EST Tel , Service support ,
== END ==
PROVIDERS: PCP Family Medicine Geriatric Medicine; Referring Provider Family Medicine Geriatric Medicine; Visit Provider Family Medicine Geriatric Medicine
DX: M54.5 Low back pain (principal)
CPT/HCPCS: 72100

== ENCOUNTER → 2020-03-31 08:03 | Outpatient (CLI) | payer MEDICARE, MEDICAID, SELFPAY ==
[2020-02-07 13:35] VITALS: BMI 34.3
--- NOTE | 2020-03-31 08:05 | ECHOCS_ITS ---
Reason For Study: CVA Procedure This was a 2D Doppler, Color Flow transthoracic echocardiogram. The study was technically difficult. Exam performed in department. Left Ventricle Normal LV size. Left ventricular systolic function is normal. The estimated ejection fraction is 60 %. There is evidence of diastolic dysfunction. No regional wall motion abnormalities noted. Right Ventricle Normal RV size. Normal systolic function. Atria Normal left atrium. Normal right atrium. No doppler evidence for ASD. Mitral Valve There is mild mitral annular calcification. Extension of the mitral annular calcification onto the posterior mitral valve leaflet. Trivial mitral valve insufficiency. Tricuspid Valve Normal tricuspid valve. Trivial tricuspid valve insufficiency. Unable to estimate RV systolic pressure/pulmonary artery pressure due to technically difficult study. Aortic Valve The aortic valve is not well visualized. Mild (1+) aortic valve insufficiency. Pulmonic Valve The pulmonic valve is not well visualized. Great Vessels The aortic root is not well visualized. Pericardium/Pleural No pericardial effusion. Medication 22 gauge I.V. with prn adaptor inserted into left arm. Diluted definity 5ml given slow IV push to enhance endocardial definition. MMode/2D Measurements & Calculations LVIDd: 4.6 cm IVSd: 1.4 cm LVOT diam: 2.2 cm LVIDs: 3.5 cm LVPWd: 1.5 cm RVDd: 3.5 cm FS: 24.9 % LVOT area: 3.6 cm2 LAV(MOD-bp): 82.9 ml LA A4 area: 22.5 cm2 LA dimension(2D): 3.6 cm LAV(MOD-bp) Indexed: 35.2 ml/m2 LAV(MOD-sp2): 95.0 ml LAV(MOD-sp4): 68.2 ml RA A4 area: 17.2 cm2 Doppler Measurements & Calculations MV E max garfield: 92.8 cm/sec Lat Peak E' Garfield: 6.2 cm/sec Med Peak E' Garfield: 4.8 cm/sec MV A max garfield: 123.8 cm/sec E/E' lat: 14.9 E/E' med: 19.1 MV E/A: 0.75 Ao V2 max: 179.8 cm/sec LV V1 max: 110.7 cm/sec SV(LVOT): 94.1 ml Ao max P.9 mmHg LV V1 max P.9 mmHg Ao V2 mean: 117.2 cm/sec LV V1 mean P.7 mmHg Ao mean P.2 mmHg LV V1 mean: 78.1 cm/sec Ao V2 VTI: 36.6 cm LV V1 VTI: 25.8 cm EMILIE(I,D): 2.6 cm2 EMILIE(V,D): 2.2 cm2 PA V2 max: 114.4 cm/sec Interpretation Summary The study was technically difficult. Left ventricular systolic function is normal. The estimated ejection fraction is 60 %. There is mild mitral annular calcification. Extension of the mitral annular calcification onto the posterior mitral valve leaflet. Trivial mitral valve insufficiency. Trivial tricuspid valve insufficiency. Mild (1+) aortic valve insufficiency. Unable to estimate RV systolic pressure/pulmonary artery pressure due to technically difficult study. There is evidence of diastolic dysfunction. Ordering Physician: Yamileth Mooney/Ramiro Waldron Referring Physician: Bruce Calvillo Chi Performed By: Caroline Reyes RDCS
== END ==
PROVIDERS: PCP Family Medicine Geriatric Medicine; Referring Provider Physician Assistant Medical; Visit Provider Physician Assistant Medical
DX: R47.01 Aphasia (principal)
CPT/HCPCS: 93306; Q9957; A4216; C8929

== ENCOUNTER → 2020-07-27 14:01 | Outpatient (CLI) | payer MEDICARE, MEDICAID, SELFPAY ==
[2020-07-27 14:31] LABS: Absolute Lymphocyte Count 1.98 X10^3/uL (0.83-4.51); Absolute Neutrophil Count 6.1 X10^3/uL (2.0-7.7); Basophil# 0.06 X10^3/uL; Basophil% 0.6 % (0-1); Eosinophil# 0.29 X10^3/uL; Eosinophils% 3.1 % (0-5); Hematocrit 41.7 % (40-54); Lymphocyte # 1.98 X10^3/ul (4.0); Lymphocyte % 21.2 % (19-41); Mean Corp Hgb Conc 31.2 g/dL (32-36); Mean Corpuscular Hgb 27.3 pg (27.0-32.0); Mean Corpuscular Volume 87.4 fL (80-94); Mean Platelet Vol. 12.8 fl (6.2-12.0); Monocyte# 0.88 X10^3/uL; Monocyte% 9.4 % (0-10); NRBC Flagged by Analyzer 0 % (0-5); Neutrophil # 6.07 X10^3/uL (2.7-7.7); Neutrophil % 65.3 % (47-70); Platelet Count 193 K/mm3 (150-450); RBC Distribution Width CV 14.8 % (11.6-14.6); RBC Distribution Width SD 47.7 fl (35.1-43.9); Red Blood Count 4.77 M/mm3 (4.6-6.2); White Blood Count 9.3 K/mm3 (4.4-11.0)
[2020-07-27 15:07] LABS: Vitamin D,25 Hydroxy 12.8 ng/mL
[2020-07-27 15:13] LABS: ALB/GLOB Ratio 0.8 RATIO (0.9-2.4); AST(SGOT) 13 U/L (15-37); Alanine Aminotransfer ALT/SGPT 18 U/L (16-61); Albumin, Serum 3.2 g/dL (3.2-5.0); Alkaline Phosphatase 74 U/L (45-117); Anion Gap 6 (5-15); BUN 17 mg/dL (7-18); Calcium,Total 8.6 mg/dL (8.5-10.1); Chloride 107 mmol/L (98-107); Creatinine, Serum 1.13 mg/dL (0.70-1.30); EST Glomerular Filtration Rate 68 mL/min (>60); Est Glom Filt Rate - Afr Amer 82 mL/min (>60); Globulin 3.8 g/dL (2.2-4.2); Glucose 158 mg/dL (74-106); Potassium 4.1 mmol/L (3.5-5.1); Sodium Level 139 mmol/L (136-145); Thyroid Stim Hormone (TSH) 1.17 uIU/mL (0.358-3.74)
== END ==
PROVIDERS: PCP Family Medicine Geriatric Medicine; Visit Provider Family Medicine Geriatric Medicine
DX: I10 Essential (primary) hypertension (principal); E55.9 Vitamin D deficiency, unspecified
CPT/HCPCS: 36415; 80053; 82306; 84443; 85025

== ENCOUNTER → 2020-08-23 14:57 | Outpatient (CLI) | payer MEDICARE, MEDICAID, SELFPAY ==
[2020-08-23 14:01] VITALS: BMI 36.4
[2020-08-23 15:55] LABS: BNP,B-Type NATRIURETIC PEPTIDE 178.5 pg/mL (0-100)
[2020-08-23 15:57] LABS: Anion Gap 6 (5-15); BUN 14 mg/dL (7-18); BUN/Creat Ratio 11.9 RATIO (10-20); Calcium,Total 8.7 mg/dL (8.5-10.1); Chloride 103 mmol/L (98-107); Creatinine, Serum 1.18 mg/dL (0.70-1.30); EST Glomerular Filtration Rate 65 mL/min (>60); Est Glom Filt Rate - Afr Amer 78 mL/min (>60); Glucose 212 mg/dL (74-106); Potassium 4.2 mmol/L (3.5-5.1); Sodium Level 137 mmol/L (136-145)
== END ==
PROVIDERS: PCP Family Medicine Geriatric Medicine; Referring Provider Nurse Practitioner Family; Visit Provider Nurse Practitioner Family
DX: I50.30 Unspecified diastolic (congestive) heart failure (principal); R06.00 Dyspnea, unspecified; R60.9 Edema, unspecified
CPT/HCPCS: 36415; 80048; 83880

== ENCOUNTER → 2020-09-27 08:35 | Outpatient (CLI) | payer MEDICARE, MEDICAID, SELFPAY ==
[2020-08-23 14:01] VITALS: BMI 36.4
--- NOTE | 2020-09-27 08:42 | CDU_ITS ---
Reason For Study: Carotid Stenosis Rt. Velocities/BP Lt. Velocities/BP Prox CCA 56/15 cm/sec. Prox CCA 147/34 cm/sec. Mid CCA 66/21 cm/sec. Mid CCA 153/23 cm/sec. Dist CCA 461/110 cm/sec. Dist CCA 116/30 cm/sec. Prox ICA 110/28 cm/sec. Prox ICA 201/33 cm/sec. Mid ICA 181/26 cm/sec. Mid ICA 162/30 cm/sec. Dist ICA 70/19 cm/sec. Dist ICA 126/30 cm/sec. Rt. ICA/CCA = 2.7. Lt. ICA/CCA = 1.3. Prox ECA 117/21 cm/sec. Prox ECA 158/16 cm/sec. Rt. Vert. 58/16 cm/sec. Lt. Vert. 51 cm/sec. Right Extracranial There is heterogeneous, irregular atherosclerotic plaque noted in the right common carotid artery. There is heterogeneous, irregular atherosclerotic plaque noted in the right internal carotid artery. There is heterogeneous, irregular atherosclerotic plaque noted in the right external carotid artery. Antegrade flow is noted in the right vertebral artery. Left Extracranial There is heterogeneous, irregular atherosclerotic plaque noted in the left common carotid artery. Stent noted. There is heterogeneous, irregular atherosclerotic plaque noted in the left internal carotid artery. Stent noted. There is intimal thickening but no significant atherosclerotic plaque noted in the left external carotid artery. Antegrade flow is noted in the left vertebral artery. Procedure Carotid Duplex 37130. This is a Carotid Duplex examination using B-mode, color flow and specral Doppler. Prelim given to Travon. Exam performed in department. VL/Carotid Duplex Ultrasound Interpretation Summary Moderate (50-69%) stenosis right extracranial internal carotid. Moderate (50-69 %) stenosis left extracranial internal carotid. Flow within the vertebral arteries is antegrade bilaterally. Although there appears to be a severe stenosis on the right distal common carotid artery into the internal carotid artery. May wish further means of evaluation with CTA. Ordering Physician: Kevin Cowan Referring Physician: Kevin Cowan Performed By: Neida Polanco RDCS, RVT
--- NOTE | 2020-09-27 08:42 | AAVD_ITS ---
Reason For Study: AAA Aorta Measurements Aorta Doppler Measurements Proximal aorta measures1.74cm x 1.66cm. in cross- Peak systolic flow velocities within the proximal sectional axis. aorta measure 84 cm/sec. Proximal aorta measures1.69cm. in longitudinal Peak systolic flow velocities within the mid aorta axis. measure 68 cm/sec. Mid aorta measures3.66cm x 3.64cm. in cross- Peak systolic flow velocities within the distal sectional axis. aorta measure 88 cm/sec. Mid aorta measures3.67cm. in longitudinal axis. Distal aorta measures1.95cm x 2.10cm. in cross- sectional axis. Distal aorta measures1.60cm. in longitudinal axis. Left Iliac Artery Left iliac artery measures 1.42cm x 1.31 cm. in the cross-sectional axis. Left iliac artery measures 1.19 cm. in the longitudinal axis. Peak systolic velocity in the left iliac artery measures 205 cm/sec. Right Iliac Artery Right iliac artery measures 1.26cm x 1.31 cm. in the cross-sectional axis. Right iliac artery measures 0.89 cm. in the longitudinal axis. Peak systolic velocity in the right iliac artery measures 153 cm/sec. Procedure Aorta IVC Iliac vasculature or bypass grafts [address]37. Exam performed in department. VL/Abd Aortic/IVC Duplex scan Interpretation Summary 3.66 cm aortic aneurysm. Ordering Physician: Kevin Cowan Referring Physician: Kevin Cowan Performed By: Neida Polanco, RASHAD, RVT
== END ==
PROVIDERS: PCP Family Medicine Geriatric Medicine; Referring Provider Surgery Vascular Surgery; Visit Provider Surgery Vascular Surgery
DX: I65.23 Occlusion and stenosis of bilateral carotid arteries (principal); I71.4 Abdominal aortic aneurysm, without rupture
CPT/HCPCS: 93880; 93978

== ENCOUNTER → 2020-10-20 05:55 | Outpatient (CLI) | payer MEDICARE, MEDICAID, SELFPAY ==
[2020-10-04 09:18] VITALS: BMI 36.4
--- NOTE | 2020-10-20 12:47 | STRESSREP ---
Stress Test Report Date: 10-20-2020 Procedure: Pharmacologic stress nuclear imaging study Indications: Shortness of breath/dyspnea on exertion; chest pain Consent: Per the patient Procedure: The patient underwent pharmacologic (Regadenoson 0.4mg ) evaluation with a peak heart rate of 99 beats per minute (66%predicted maximal heart rate) and a peak blood pressure of 180/74 mmHg. The baseline ECG demonstrated sinus rhythm. The peak pharmacologic ECG demonstrated no obvious ECG changes. There were occasional PVCs during infusion and recovery. There was no complaint of chest discomfort during pharmacologic infusion or recovery and an isolated ventricular couplet in recovery. The examination was discontinued secondary to completion of protocol. Impression: 1. Pharmacologic (Regadenoson) evaluation 2. Peak pharmacologic ECG with no obvious ECG changes. 3. There were occasional PVCs during infusion and recovery and an isolated ventricular couplet in recovery. 4. Nuclear images pending Myocardial perfusion imaging study: Technique: The patient was injected with 14.9 millicuries of technetium 99m Cardiolite and subsequently rest SPECT Cardiolite nuclear imaging was obtained in the horizontal long, vertical long, and short axis views. The patient underwent pharmacologic (Regadenoson) evaluation with a peak heart rate of 99 beats per minute (66% percent predicted maximal heart rate) and a peak blood pressure of 180/74 mmHg. The patient was injected with 44.8 millicuries of technetium 99m Cardiolite and subsequently stress SPECT Cardiolite nuclear imaging was obtained in the horizontal long, vertical long, and short axis views. A gated Cardiolite study at peak stress was obtained. Interpretation: Rest and stress SPECT Cardiolite nuclear imaging status post realignment, normalization, and attenuation correction demonstrate relative uniform tracer uptake and myocardial perfusion appearing within normal limits. There is end systolic thickening and brightening. The gated Cardiolite study demonstrates myocardial thickening and inward wall motion. The reported LVEF is 47%. Impression: 1. Rest and stress SPECT Cardiolite nuclear imaging demonstrate relative uniform tracer uptake and myocardial perfusion appearing within normal limits. 2. The gated Cardiolite study reports an LVEF of 47%. This note was generated with [employer] software. It may contain incorrect words, spelling, and punctuation that were not noted in checking the note before signing.
== END ==
PROVIDERS: PCP Family Medicine Geriatric Medicine; Referring Provider Family Medicine Geriatric Medicine; Visit Provider Family Medicine Geriatric Medicine
DX: R07.9 Chest pain, unspecified (principal)
CPT/HCPCS: 78452; 93017; A9500; A4216; J2785

== ENCOUNTER → 2020-10-26 12:38 | Outpatient (CLI) | payer MEDICARE, MEDICAID, SELFPAY ==
[2020-10-04 09:18] VITALS: BMI 36.4
[2020-10-13 10:31] LABS: Anion Gap 8 (5-15); BUN 16 mg/dL (7-18); BUN/Creat Ratio 13.9 RATIO (10-20); Calcium,Total 8.6 mg/dL (8.5-10.1); Chloride 103 mmol/L (98-107); Creatinine, Serum 1.15 mg/dL (0.70-1.30); EST Glomerular Filtration Rate 67 mL/min (>60); Est Glom Filt Rate - Afr Amer 81 mL/min (>60); Glucose 215 mg/dL (74-106); Potassium 4.2 mmol/L (3.5-5.1); Sodium Level 138 mmol/L (136-145)
--- NOTE | 2020-10-26 12:40 | CT_ITS ---
STUDY: CTA NECK WITH CONTRAST REASON FOR EXAM: Male, 70 years old. Burning in the left arm for one month. History of left carotid stent. History of diabetes hypertension and former smoker with lung and tongue cancer. RADIATION DOSAGE (If Supplied By Facility): CTDIvol = ( 27.10 ) mGy, DLP = ( 759.61 ) mGycm TECHNIQUE: CT angiography with multi-detector data acquisition was performed from the aortic arch to the skull base following intravenous administration of IV 100mL Isovue-370. MIP images were reconstructed from the axial data set. Post-processing of the angiographic images was performed, with multiplanar reformation and 3D reconstruction. Individualized dose optimization techniques were used for this CT. COMPARISON: Carotid DOPPLER ultrasound, 06/04/2019. CTA of the neck, 12/15/2017. FINDINGS: AORTIC ARCH: There is atherosclerotic changes of the aortic arch without aneurysm or dissection. Normal origins of the brachiocephalic, left common carotid, and left subclavian arteries. RIGHT CAROTID ARTERIES: There is scattered atherosclerotic changes along the course of the right common carotid artery (CCA). No significant stenosis. There is marked calcification at the carotid bifurcation extending into the carotid bulb with approximately 75% stenosis. Calcified and noncalcified plaque at the origin of the right internal carotid (ICA) artery with an approximate 70% stenosis. Tortuosity of the visualized cervical portion of the right internal carotid artery. Minimal calcific plaque at origin of the right external carotid artery (ECA) without stenosis. LEFT CAROTID ARTERIES: Normal proximal left common carotid artery (CCA). There is a patent stent extending from just below the bifurcation upward into the cervical portion of the left internal carotid artery. Tortuosity of the visualized cervical portion of the left internal carotid artery. Normal origin of the left external carotid artery (ECA). VERTEBRAL ARTERIES: Again seen is a severe stenosis at the origin of left vertebral artery. Normal right vertebral artery. CT/CTA Neck W/WO Contrast IMPRESSION: 1. Patent left carotid stent. 2. 70-75% stenoses at the right carotid bifurcation at the origin of the right internal carotid artery. This appears progressive since the prior CTA 3. Stable severe stenosis at the origin of left vertebral artery. Electronically Signed: Jayme Tyson DO at 16:16 EDT Tel [phone], Service support ,
== END ==
PROVIDERS: Nurse Practitioner Family; PCP Family Medicine Geriatric Medicine; Referring Provider Surgery Vascular Surgery; Visit Provider Surgery Vascular Surgery
DX: I65.23 Occlusion and stenosis of bilateral carotid arteries (principal); I25.2 Old myocardial infarction; I71.4 Abdominal aortic aneurysm, without rupture; M79.606 Pain in leg, unspecified; C34.90 Malignant neoplasm of unspecified part of unspecified bronchus or lung; E78.00 Pure hypercholesterolemia, unspecified; E11.59 Type 2 diabetes mellitus with other circulatory complications; Z87.891 Personal history of nicotine dependence; I11.0 Hypertensive heart disease with heart failure; I50.30 Unspecified diastolic (congestive) heart failure
CPT/HCPCS: 36415; 70498; 80048; Q9967; A4216

== ENCOUNTER → 2020-11-06 15:30 | Outpatient (CLI) | payer MEDICARE, MEDICAID, SELFPAY ==
[2020-11-01 08:23] VITALS: BMI 36.4
--- NOTE | 2020-11-06 15:52 | RAD_ITS ---
STUDY: X-RAY - LUMBAR SPINE REASON FOR EXAM: Male, 70 years old. LOW BACK PAIN TECHNIQUE: 4 view(s) of the lumbar spine were obtained. COMPARISON: March 08, 2020 chest x-ray FINDINGS: Normal lumbar lordosis. There is no substantial scoliosis. There is a normal alignment of the vertebrae. There is multilevel endplate spondylosis of the lumbar vertebrae. There is mild posterior disc space narrowing at the level of L1-L2. There is atherosclerotic calcification of the abdominal aorta without a demonstrated aneurysm. RAD/Lumbar Spine 2 or 3 Views IMPRESSION: Multilevel degenerative change of the lumbar spine stable since prior study. Postoperative changes right upper quadrant status post cholecystectomy. Electronically Signed: Isa Reyez MD at 0:09 EDT Tel , Service support ,
== END ==
PROVIDERS: PCP Family Medicine Geriatric Medicine; Referring Provider Family Medicine Geriatric Medicine; Visit Provider Family Medicine Geriatric Medicine
DX: M54.5 Low back pain (principal)
CPT/HCPCS: 72100

== ENCOUNTER 2020-12-06 09:00 | Outpatient (RCR) | payer MEDICARE, MEDICAID, SELFPAY ==
[2020-11-01 08:23] VITALS: BMI 36.4
--- NOTE | 2020-11-24 09:10 | HP.PTEVAL_ITS ---
Patient's Visit Information ARON AMES is a 70 year old M referred to Physical Therapy by Dr. Bruce Calvillo MD with a diagnosis of LOW BACK PAIN. Date of Evaluation: 11/24/20 Physical Therapist: Noemi Falcon, PT, Cert MDT - Visit Plan Frequency: 2-3x /Week Duration: 4-6 Weeks Plan: CONSIDER THE FOLLOWING PT PLAN AFTER NEW SX'S ARE REPORTED BY PATIENT TO DR. CALVILLO: PATIENT AGREEABLE WITH CALLING DR. CALVILLO TODAY. POSTURE CORRECTION/STRENGTHENING, INSTRUCTION IN APPROPRIATE BODY MECHANICS AND ACTIVITY MODIFICATIONS. DLS STARTING WITH A NEUTRAL SPINE PROGRESSING ROM TOLERATED. DIAN LE ROM, STRETCHING AND STRENGTHENING. HEP INSTRUCTION. - Subjective Work/Leisure: RETIRED. LIVES ALONE. Present symptoms: LOW BACK PAIN AND LEFT LEG PAIN. LLE NUMBNESS AND TINGLING IN THIGH. Present since: 3 DAYS AGO. Pain Scale: WORST 8/10, LEAST 0/10. Currently: 8/10. Commenced as a result of: NO APPARENT REASON. Symptoms at onset: LEFT LEG JUST STARTED HURTING LIKE CRAZY. Worse: MOVING. Better: LYING DOWN - IT GOES AWAY. Disturbed sleep: NO. Previous history/Previous treatment: PATIENT REPORTS CHRONIC LBP BUT NO HISTORY OF LEFT LEG PROBLEMS. LOTS OF CHIROPRACTIC WORK. LAST CHIROPRACTIC VISIT WAS ABOUT 5 YEARS AGO. NO BACK SURGERY. NO LLE SX. NO DORIS'S. STATES HE HAS PROBABLY HAD PT FOR HIS BACK TOO. Coughing/sneezing/straining: POSITIVE. Gait: PATIENT REPORTS THAT BEFORE THIS STARTED (ABOUT 3 DAYS AGO) HE WAS WALKING WITHOUT THE CANE BUT NOW HE CAN'T WALK WITHOUT IT. PATIENT REPORTS HE HAS GONE FROM WALKING ALMOST NORMAL TO HOBBLING WITH A CANE. Difficulty initiating urinatin: NO. Accidents: FALL IN YARD 2 WEEKS AGO PICKING UP PEACHES AND COULDN'T GET UP. CALLED 911 AND WENT TO ED. DX'D WITH UTI. PATIENT REPORTS HE SCRAPED HIS FACE. DENIES ANY OTHER INJURIES. NO INCREASED BACK OR LEG PAIN AFTER THE FALL UNTIL [address] CALVILLO KNOWS ABOUT HIS FALL. Unexplained weight loss: NO. Imaging: RECENT LUMBAR X-RAY - SEE [facility] EMR - There is multilevel endplate spondylosis of the lumbar vertebrae. There is. mild posterior disc space narrowing at the level of L1-L2. NO LEFT LEG X-RAYS. OTHER: SEE PM[facility] BELOW. PATIENT REPORTS THE STROKE DID NOT EFFECT HIS ARMS OR LEGS - JUST HIS SPEECH FOR A FEW WEEKS. 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 CALVILLO A WEEK AGO HIS BACK WAS HURTING BUT NOT HIS LEG. STATES HIS LEG JUST STARTED HURTING A FEW DAYS AGO FOR NO APPARENT REASON AND HIS IS DOING WORSE NOW THAT WHEN HE SAW DR. CALVILLO. THIS PT RECOMMENDED HE CALL DR. ALVARES OFFICE TO REPORT NEW SX'S. TODAY. Sitting/Standing Posture: POOR. FH. SH'S. Lordosis: REDUCED. Lateral shift: LEFT. Relevant shift: N/A. Active Correction of posture: WORSE. Other Observations: THIS PATIENT AMBULATES INDEP'LY INTO PT WITH A STRAIGHT CANE WITH DECREASED CADANCE. LIMPING ON LLE. NO LOB. ABLE TO TRANSFER INDEP'LY FROM SIT TO STAND BUT UE DEPENDENT TO DO SO. HIS GAIT AND TRANSFERS ARE SLOW AND GUARDED WITH GRIMMACES. HE IS UNABLE TO SLS ON THE LLE WITHOUT UE SUPPORT. Motor deficit: RIGHT LE: HIP 4-/5, KNEE EXT 4- /5, KNEE FLEX 4/5, ANKLE DORSIFLEX 5/5. L HIP 3-/5, KNEE EXT 3-/5, KNEE FLEX 3+/5, ANKLE DORSIFLEXION 4/5. Sensory deficit: DIAN LE LIGHT TOUCH SENSATION APPEARS INTACT AND SYMMETRICAL. ROM deficit: TIGHT DIAN HIP FLEXORS, HS'S AND GASTROC SOLEUS COMPLEX'S. Reflexes: NT. Dural Signs: POSITIVE DIAN LE'S. Lumbar mvmt loss: flex - JEWELL. ext - JEWELL. R SG - JEWELL. L SG - JEWELL. PATIENT C/O INCREASED BACK AND LEG PAIN WITH LUMBAR ROM TESTING ALL PLANES. Core strength: POOR. Palpation: PATIENT HAS TENDERNESS WITH LIGHT PALPATION OF THE LOWER THORACIC SPINE, LUMBAR SPINE AND ENTIRE LLE TO THE FOOT. TREATMENT: NEUROMUSCULAR REEDUCATION - RETRAINING OF MVMT AND POSTURE FOR SITTING, LYING AND STANDING ACTIVITIES. - Balance/Special Test Scores Oswestry Low Back Score: 35 - Goals Goal 1:: DECREASE C/O BACK AND LE SX'S. Goal Time Frame: 4-6 Weeks Goal 2:: IMPROVE PERSONAL CARE, LIFTING, WALKING, SITTING, STANDING, SOCIAL LIFE, TRAVEL AND HOMEMAKING FUNCTION Goal Time Frame: 4-6 Weeks Goal 3:: INSTRUCT IN PROPHYLAXIS Goal Time Frame: 4-6 Weeks - Anticipated Interventions Patient/Client Instruction: Educate patient on: Condition, Plan of Care, Risk Factors For the Purpose of:: To improve self management Therapeutic Exercise to Include: Strength training, Endurance training, Balance training, Body mechanics, Postural training, Flexibilty training, Gait and locom otor training, Neuromotor development, Dynamic Lumbar Stabilization For the Purpose of:: To decrease pain, To improve muscle performance and motor function, To improve ability to perform ADL's, To increase tolerance to activity/condition/position, To improve ability of physical actions for home/community/work/leisure, To improve gait and locomotor functions Thank you for the opportunity to evaluate your patient. For Medicare and Medicare HMO plans, please review the plan of care and approve it. It will need to be FAXED BACK to us at [phone] for Medicare purposes. For Medicare only, by signing this I certify the plan of care. Please let me know if there are questions or concerns regarding this plan of care. Physician Signature:_ Date:
--- NOTE | 2021-03-06 13:23 | HP.PTDCNRP_ITS ---
ARON AMES was seen in my office for initial evaluation on 11/24/20. The following Plan of Care was established for this patient: Initial Frequency: 2-3x /Week Initial Duration: 4-6 Weeks Patient/Client Instruction: Educate patient on: Condition, Plan of Care, Risk Factors For the Purpose of:: To improve self management Therapeutic Exercise to Include: Strength training, Endurance training, Balance training, Body mechanics, Postural training, Flexibilty training, Gait and locomotor training, Neuromotor development, Dynamic Lumbar Stabilization For the Purpose of:: To decrease pain, To improve muscle performance and motor f unction, To improve ability to perform ADL's, To increase tolerance to activity/condition/position, To improve ability of physical actions for home/community/work/leisure, To improve gait and locomotor functions This patient was last seen in our office 12/06/20. Pertinent comments regarding their Physical therapy will appear below: This patient has not returned to Physical Therapy and is appropriate to return to MD for further follow-up as needed. At this point I will be discontinuing this patient from physical therapy. I would be happy to see this patient again in the future if found appropriate by the physician. Thank you! Noemi Falcon, PT, Cert MDT Balance/Gait/Functional tests - Balance/Special Test Scores Oswestry Low Back Score: 35
== END 2020-12-06 19:00 | disposition home or self-care (01) ==
LOC: PT 09:00
PROVIDERS: PCP Family Medicine Geriatric Medicine; Referring Provider Family Medicine Geriatric Medicine; Visit Provider Family Medicine Geriatric Medicine
DX: M54.5 Low back pain (principal)
CPT/HCPCS: 97162; 97530

== ENCOUNTER → 2020-12-11 12:20 | Outpatient (CLI) | payer MEDICARE, MEDICAID, SELFPAY ==
[2020-11-01 08:23] VITALS: BMI 36.4
[2020-12-04 13:46] VITALS: BMI 36.4
--- NOTE | 2020-12-11 12:51 | MRI_ITS ---
STUDY: MRI LUMBAR SPINE WITHOUT CONTRAST REASON FOR EXAM: Male, 70 years old. LUMBAR RADICULOPATHY,bilateral TECHNIQUE: Standardized fat and water weighted pulse sequences were obtained in the sagittal and axial planes. COMPARISON: None FINDINGS: T12-L1: Normal endplates. Disc bulge and ligamentum flavum hypertrophy. Normal bilateral facet joints. Normal central canal and bilateral lateral recesses. Normal bilateral intervertebral neural foramina. Normal lumbar lordosis. There is no substantial scoliosis. Normal conus medullaris that terminates at the level of T12-L1. L1-2: Normal endplates. Minimal disc bulge. Mild facet arthropathy. Normal central canal and bilateral lateral recesses. Normal bilateral intervertebral neural foramina. L2-3: Normal endplates. Disc bulge. Mild facet arthropathy. Mild spinal canal stenosis. Wrsw-ad-[id number] bilateral intervertebral neural foraminal stenosis. L3-4: Normal endplates. Minimal disc bulge. Moderate bilateral facet arthropathy. Normal central canal and bilateral lateral recesses. Moderate right and [id number] left intervertebral neural foraminal stenosis. L4-5: Normal endplates. Disc desiccation. Moderate bilateral facet arthropathy. Normal central canal and bilateral lateral recesses. Mild to moderate bilateral intervertebral neural foraminal stenosis. L5-S1: Normal endplates. Normal disc height, hydration and morphology. Normal bilateral facet joints. Normal central canal and bilateral lateral recesses. Normal bilateral intervertebral neural foramina. Normal visualized sacral ala. Normal visualized paraspinous soft tissue structures. MRI/Spine Lumbar (Routine) IMPRESSION: Multilevel neural foraminal stenosis detailed above, most prominent at L3-L4 on the right. Mild spinal canal stenosis at L2-L3. Electronically Signed: Ramiro Pandey MD at 8:04 EDT Tel , Service support ,
== END ==
PROVIDERS: PCP Family Medicine Geriatric Medicine; Referring Provider Family Medicine Geriatric Medicine; Visit Provider Family Medicine Geriatric Medicine
DX: M54.16 Radiculopathy, lumbar region (principal)
CPT/HCPCS: 72148

== ENCOUNTER → 2021-01-03 05:47 | Outpatient (CLI) | payer MEDICARE, MEDICAID, SELFPAY ==
[2020-11-01 08:23] VITALS: BMI 36.4
--- NOTE | 2021-01-03 10:13 | NEURO ---
NCS and/or EMG Patient Report Ordering Doctor: Bruce Calvillo Chi DATE OF SERVICE: 01/03/21 Patrick Smith presents for electrodiagnostic testing of the lower limbs. He reports bilateral leg weakness and numbness. Symptoms have been worse over the past few months. He has significant bilateral lower extremity edema. Electrodiagnostic findings: Left peroneal motor nerve demonstrates prolonged latency with reduced amplitude and conduction velocity. Prolonged right peroneal distal latency with reduced amplitude. Proximal response could not be obtained. Tibial motor latencies and amplitudes within normal limits with reduced conduction velocity bilaterally. Prolonged bilateral tibial F wave. Prolonged left peroneal F-wave. Absent right peroneal F-wave prolonged H reflex bilaterally. Sensory responses could not be obtained, somewhat likely due to pitting edema. Needle EMG testing reveals motor units of increased amplitude and duration in the tibialis anterior and gastrocnemius bilaterally. Electrodiagnostic impression: This is an abnormal study in the lower limbs 1. Electrodiagnostic findings demonstrate peripheral polyneuropathy, with motor and sensory involvement. This may be secondary to diabetes. Sensory nerve testing is somewhat compromised due to 2+ lower extremity edema. 2. No electrodiagnostic evidence is noted for lumbosacral radiculopathy. 3. No electrodiagnostic evidence is noted for myopathy.
== END ==
PROVIDERS: PCP Family Medicine Geriatric Medicine; Referring Provider Family Medicine Geriatric Medicine; Visit Provider Family Medicine Geriatric Medicine
DX: R20.2 Paresthesia of skin (principal)
CPT/HCPCS: 95886; 95912

== ENCOUNTER 2021-01-29 02:09 | Observation (INO) | payer MEDICARE, MEDICAID, SELFPAY ==
[2021-01-29] VITALS (11 sets, daily range): BP systolic 143–176; BP diastolic 73–80; PULSE 61–75; RESP 14–18; TEMP 36.3–36.6; O2SAT 93–99; BMI 37.0; BMI 35.2
--- NOTE | 2021-01-29 02:15 | RAD_ITS ---
STUDY: X-RAY CHEST REASON FOR EXAM: Male, 70 years old. chest pain TECHNIQUE: 1 view COMPARISON: None. FINDINGS: The cardiac silhouette is top normal in size.. Chronic pleuroparenchymal changes at the left costophrenic angle are redemonstrated. The trachea is midline. There is no pneumothorax. Old right rib fractures noted. RAD/Chest 1 View (Portable) IMPRESSION: No significant interval change. Electronically Signed: Aleks Soria MD at 3:00 EDT Tel , Service support ,
--- NOTE | 2021-01-29 02:15 | EKG12_ITS ---
Test Reason : CP Blood Pressure : / mmHG Vent. Rate : 071 BPM Atrial Rate : 071 BPM P-R Int : 178 ms QRS Dur : 082 ms QT Int : 390 ms P-R-T Axes : 017 -42 013 degrees QTc Int : 423 ms Sinus rhythm with occasional Premature ventricular complexes and Premature atrial complexes Left axis deviation Abnormal ECG Confirmed by IVAN POWER, JESSY ([id number]), offline editor YOLANDE RIVAS ([id number]) on 01/30/2021 7:48:58 AM Referred By: KARLEE Confirmed By:JESSY LOVE MD
[2021-01-29 02:26] LABS: Absolute Lymphocyte Count 3.09 X10^3/uL (0.83-4.51); Absolute Neutrophil Count 5.2 X10^3/uL (2.0-7.7); Basophil# 0.06 X10^3/uL; Basophil% 0.6 % (0-1); Eosinophil# 0.46 X10^3/uL; Eosinophils% 4.7 % (0-5); Hematocrit 42.3 % (40-54); Hemoglobin 13.7 g/dL (13.0-16.5); Lymphocyte # 3.09 X10^3/ul (0.83-4.51); Lymphocyte % 31.3 % (19-41); Mean Corp Hgb Conc 32.4 g/dL (32-36); Mean Corpuscular Hgb 29.7 pg (27.0-32.0); Mean Corpuscular Volume 91.8 fL (80-94); Monocyte# 1.05 X10^3/uL; Monocyte% 10.6 % (0-10); NRBC Flagged by Analyzer 0 % (0-5); Neutrophil # 5.17 X10^3/uL (2.7-7.7); Neutrophil % 52.3 % (47-70); Platelet Count 244 K/mm3 (150-450); RBC Distribution Width SD 47.9 fl (35.1-43.9); Red Blood Count 4.61 M/mm3 (4.6-6.2); White Blood Count 9.9 K/mm3 (4.4-11.0)
[2021-01-29] MEDS: Aspirin 81 MG TAB.CHEW 324 MG PO (02:29)
--- NOTE | 2021-01-29 02:33 | EDS_ITS ---
HPI History of Present Illness Chief Complaint: Chest Pain Informant: patient Onset/Context/Timing Onset: Today Activity at onset: gradual Timing: Continuous Quality: Positive for Aching and Pain Location: Left Parasternal and Left Chest Current Severity: Mild Maximum Severity: Mild Worsened By: Nothing Relieved By: Nothing; Not Relieved By Rest and Remaining Still Associated Symptoms: Negative for Nausea, Vomiting, Diaphoresis, Dyspnea, Cough, Fever, Lightheadedness, Acid Reflux and Palpitations Narrative Narrative: 70-year-old male from a local halfway. Has a history of cardiac disease he had a prior FL and cardiac stent in 2008. Patient is reportedly on Brilinta. He also has a history of A. fib, diabetes, lung cancer COPD and CPAP for sleep apnea. Patient states that tonight around midnight when he was lying in bed he had a sudden onset of left arm pain which then radiated into his chest. Said he still having discomfort now. He denies any hemoptysis. He states he is never had a DVT or PE. Prior Similar Symptoms: Yes Recent Illness/Hospitalization: Yes CVD Risk Factors: Positive for Hypertension, Diabetes, Hypercholesterolemia and Smoking PE Risk Factors: Positive for Recent Immobilization and Cancer; Negative for Recent Travel/Surgery, Prior DVT or PE and OCP + Smoking + >/=35 TAD Risk Factors: Negative for Marfan's Syndrome PFSH [facility] Medical History Aneurysm of infrarenal abdominal aorta Atherosclerotic heart disease of [place] coronary artery without angina pectoris Benign essential hypertension Bipolar disorder Chronic diastolic (congestive) heart failure COPD (chronic obstructive pulmonary disease) Depression Dyspnea Hepatitis B History of lung cancer Hyperlipidemia Lung nodule Old myocardial infarction SUJYE (obstructive sleep apnea) Panic disorder Premature atrial contractions Premature ventricular contraction Small cell carcinoma of left lung Type 2 diabetes mellitus Home Medications glimepiride 1 mg PO DAILY 02/09/20 [History Last Taken Unknown] metoprolol tartrate 50 mg tablet 50 mg PO DAILY tab 08/23/20 [History Last Taken Unknown] isosorbide mononitrate 30 mg tablet,extended release 24 hr 30 mg PO DAILY #30 tab 10/04/20 [Rx Last Taken Unknown] acetaminophen [Tylenol] 325 mg PO Q6H PRN 01/29/21 [History Last Taken Unknown] apixaban [Eliquis] 5 mg PO BID 01/29/21 [History Last Taken Unknown] aspirin 81 mg PO DAILY 01/29/21 [History Last Taken Unknown] cyanocobalamin (vitamin B-12) 500 mcg SUBLINGUAL DAILY 01/29/21 [History Last Taken Unknown] linagliptin [Tradjenta] 5 mg PO DAILY 01/29/21 [History Last Taken Unknown] losartan 25 mg PO DAILY 01/29/21 [History Last Taken Unknown] Allergy/AdvReac Type Severity Reaction Status Date / Time Oxuvtfb-Ure-Yjf Reductase Allergy Other Verified 01/29/21 02:17 Inhibitor atorvastatin AdvReac Severe myalgias Verified 01/29/21 02:17 hydrocodone [From Lortab] AdvReac Severe UNKOWN Verified 01/29/21 02:17 tramadol [From Ultram] AdvReac Severe UNKOWN Verified 01/29/21 02:17 zolpidem [From Ambien] AdvReac Severe UNKOWN Verified 01/29/21 02:17 alprazolam [From Xanax] AdvReac Other Verified 01/29/21 02:17 loratadine AdvReac Unknown Verified 01/29/21 02:17 metformin AdvReac Abd Verified 01/29/21 02:17 cramps/diarrhea oxycodone [Oxycodone] AdvReac Itching Verified 01/29/21 02:17 oxycodone HCl [From Percocet] AdvReac Itching Verified 01/29/21 02:17 Penicillins AdvReac Vomiting Verified 01/29/21 02:17 Family History Brother Hypertension Mother Heart disease CHF (congestive heart failure) Father Cancer kidney Surgical History History of cholecystectomy (~2011) History of lobectomy of lung History of lung surgery History of tongue cancer (~2012) Postsurgical percutaneous transluminal coronary angioplasty (PTCA) status Presence of stent in coronary artery (~06/22/08) Social History Smoking Status: Former smoker quit date: 04/28/99 pack-years: 20 how long ago did patient quit smokin years ago alcohol intake: former year quit: 1989 substance use type: does not use caffeine: No ROS ROS ED ROS Narrative Denies recent illness. Review of Systems ROS Unobtainable: Denies due to encephalopathy Constitutional Constitutional ED: Denies chills or fever(s) Eyes Eyes: Denies none ENT ENT ED: Denies ear pain Cardiovascular Cardiovascular: Reports as per HPI and chest pain; Denies palpitations Respiratory/Chest Respiratory/Chest: Denies cough or dyspnea Gastrointestinal Gastrointestinal: Denies abdominal pain, constipation, diarrhea, nausea or vomiting Genitourinary Genitourinary ED: Denies dysuria Musculoskeletal Musculoskeletal: Denies myalgias Integumentary Denies rash Neurologic Neurologic: Denies headache(s) Psychiatric Psychiatric: Denies depression Endocrine Endocrinology: Denies polyuria Hematologic/Lymphatic Hematologic/Lymphatic: Denies easy bruising Allergic/Immunologic Allergic/Immunologic ED: Denies urticaria EXAM Physical Exam Narrative Exam Narrative: Or male from a halfway with chest pain. History of prior cardiac disease. Exam benign. Const Vital Signs: 01/29/21 02:10 01/29/21 02:21 01/29/21 04:25 Temperature 97.4 F L Temperature Source Temporal Pulse Rate 70 63 Respiratory Rate 14 15 Blood Pressure 152/73 H 163/73 H Blood Pressure Mean 99 103 Pulse Ox 97 93 98 Oxygen Delivery Method Nasal Cannula Nasal Cannula Oxygen Flow Rate (L/min) 2 01/29/21 07:18 Temperature Temperature Source Pulse Rate 61 Respiratory Rate 14 Blood Pressure 176/78 H Blood Pressure Mean 110 Pulse Ox 98 Oxygen Delivery Method Nasal Cannula Oxygen Flow Rate (L/min) 2 Positive well nourished and well developed; Negative for cachectic, contractures or unkempt General Appearance ED: well developed and NAD; Negative for unkempt, cachectic or contractures Nutritional Appearance: Negative for cachectic HEENT Reports moist mucous membranes normocephalic and atraumatic Eyes PERRL and EOMs intact bilaterally Neck no lymphadenopathy, supple and no JVD General: Negative for tenderness Chest Wall inspection of chest normal and palpation of chest normal Resp normal respiratory effort and clear to auscultation bilaterally Effort and Inspection: respiratory distress Auscultation: Negative for rales, rhonchi or wheezes Cardio regular rate, regular rhythm, S1 normal heart sound and S2 normal heart sound GI normal to inspection, nondistended, normoactive bowel sounds, soft to palpation, non-tender, non-distended and no masses Back/Spine no CVA tenderness Extremity normal to inspection General Extremety ED: Yes edema; Negative for tenderness General Extremity: edema Neuro oriented x3 Sensorium / Orientation: awake, alert, oriented to person, oriented to place and oriented to time Psych mental status grossly normal Appearance: Negative for unkempt Skin no rashes or lesions noted and no wounds General Skin Exam: Negative for jaundice Heart Score History: Moderately Suspicious ECG: Normal Age: >/= 65 years Risk Factors: >/= 3 Risk Factors or History of CAD Troponin: </= Normal Limit Score: 5 MDM MDM MDM Narrative Medical decision making narrative: 70-year-old male known history of coronary disease with prior cardiac stent on Brilinta. Also diabetic with a history of lung cancer and A. fib. Plan chest pain is not reproducible. His heart score is around a 5. Repeat exam patient is doing well at 3:40 AM. Patient is doing well. He believes he may have had a recent heart cath done at [facility] in [place] were trying to obtain that. We are going to get a second EKG and a repeat troponin. Repeat exam at 7:10 AM patient is resting comfortably. He and I went over his test results of his most recent cardiac catheterization from mid December in [place]. He could not add any additional information from what the outpatient admitting clerk told him in [place]. I spoke to our hospitalist will be admitted for chest pain. Lab Data Attestation: I reviewed the patient's lab results. Lab results narrative: CBC shows a white count of 9. Hemoglobin 13.7. Chemistries unremarkable gap is 7 normal creatinine of 1. Glucose 98. High- sensitivity troponin 16. Repeat second EKG is unchanged from the first. Repeat 2-hour troponin was 18. Labs: Laboratory Results - last 24 hr 01/29/21 01/29/21 01/29/21 02:17 02:17 04:23 WBC 9.9 RBC 4.61 Hgb 13.7 Hct 42.3 MCV 91.8 MCH 29.7 MCHC 32.4 RDW Std Deviation 47.9 H RDW Coeff of Yang 14.0 Plt Count 244 MPV 11.0 Immature Gran % (Auto) 0.500 Neut % (Auto) 52.3 Lymph % (Auto) 31.3 Duval % (Auto) 10.6 H Eos % (Auto) 4.7 Baso % (Auto) 0.6 Absolute Neuts (auto) 5.2 Absolute Lymphs (auto) 3.09 Nucleated RBC % 0 Sodium 139 Potassium 4.5 Chloride 107 Carbon Dioxide 25.0 Anion Gap 7 BUN 15 Creatinine 1.08 Estim Creat Clear Calc 68.86 Est GFR (MDRD) Af Amer 87 Est GFR (MDRD) Non-Af 72 BUN/Creatinine Ratio 13.9 Glucose 98 Calcium 8.9 Troponin I High Sens 16 18 Radiography Chest X-Ray - ED: 1 View, Read by ED Physician, Heart, Lungs, Mediastinum, Bony Structures, No Acute Disease and Chronic Changes Diagnostic Testing: Radiology Impression Chest X-Ray 01/29/21 02:15 IMPRESSION: No significant interval change. Electronically Signed: Aleks Soria MD at 3:00 EDT Tel , Service support , Single view portable chest x-ray interpreted by myself shows chronic changes no acute disease. Rhythm Strip Rhythm Strip: Sinus Rhythm Rate: 71 Ectopy: PVC(s) and PAC(s) EKG Initial EKG: Attestation: I personally reviewed and interpreted this EKG as follows: Interpretation: Sinus Rhythm and No Acute Injury Pattern Comments: Normal sinus rhythm rate of 71 no acute signs of FL or ischemia. PVCs. Unchanged from prior EKG from October 2016. Follow-up EKG: Attestation: I personally reviewed and interpreted this EKG as follows: Interpretation: Sinus Rhythm and No Acute Injury Pattern Comments: Repeat EKG showed a sinus rhythm rate of 62 with PVCs. Old inferior FL. But no acute change from the first today or prior. Prior EKG tracings: available for review Discharge Plan Triage Chief Complaint: Chest Pain ED Provider: Edgard Bowling Dx/Rx/DC Orders Clinical Impression: Chest pain, History of acquired heart disease, History of atrial fibrillation, History of diabetes mellitus Prescriptions: No Action metoprolol tartrate 50 mg tablet 50 mg PO DAILY RF: 0 isosorbide mononitrate 30 mg tablet extended release 24 hr 30 mg PO DAILY Qty: 30 RF: 11 glimepiride 1 MG tablet 1 mg PO DAILY RF: 0 acetaminophen [Tylenol] 325 mg Tablet 325 mg PO Q6H PRN (Reason: Pain) RF: 0 losartan 25 mg Tablet 25 mg PO DAILY RF: 0 Tradjenta 5 mg Tablet 5 mg PO DAILY RF: 0 Eliquis 5 mg Tablet 5 mg PO BID RF: 0 cyanocobalamin (vitamin B-12) 500 mcg Tablet, Sublingual 500 mcg SUBLINGUAL DAILY RF: 0 aspirin 81 mg Capsule 81 mg PO DAILY RF: 0 Primary Care Provider: Bruce Cavlillo Chi Referrals: Bruce Calvilol Chi, MD [Primary Care Provider] -
[2021-01-29 02:40] LABS: Anion Gap 7 (5-15); BUN 15 mg/dL (7-18); BUN/Creat Ratio 13.9 RATIO (10-20); Calcium,Total 8.9 mg/dL (8.5-10.1); Chloride 107 mmol/L (98-107); Creatinine, Serum 1.08 mg/dL (0.70-1.30); EST Glomerular Filtration Rate 72 mL/min (>60); Est Glom Filt Rate - Afr Amer 87 mL/min (>60); Estimated Creatinine Clearance 68.86 ml/min; Glucose 98 mg/dL (74-106); Potassium 4.5 mmol/L (3.5-5.1); Sodium Level 139 mmol/L (136-145); Troponin-I HS 16 pg/mL (3.0-78.0)
--- NOTE | 2021-01-29 03:45 | EKG12_ITS ---
Test Reason : REPEAT Blood Pressure : / mmHG Vent. Rate : 062 BPM Atrial Rate : 062 BPM P-R Int : 184 ms QRS Dur : 084 ms QT Int : 410 ms P-R-T Axes : 009 -45 -21 degrees QTc Int : 416 ms Sinus rhythm with occasional Premature ventricular complexes Left axis deviation Inferior infarct , age undetermined Abnormal ECG Confirmed by IVAN POWER, JESSY ([id number]), school photograph editor YOLANDE RIVAS ([id number]) on 01/30/2021 7:48:43 AM Referred By: KARLEE Confirmed By:JESSY LOVE MD
[2021-01-29 04:56] LABS: Troponin-I HS 18 pg/mL (3.0-78.0)
--- NOTE | 2021-01-29 07:33 | EKG12_ITS ---
Test Reason : ARM PAIN Blood Pressure : / mmHG Vent. Rate : 066 BPM Atrial Rate : 066 BPM P-R Int : 168 ms QRS Dur : 086 ms QT Int : 390 ms P-R-T Axes : 000 -48 -24 degrees QTc Int : 408 ms Sinus rhythm with frequent Premature ventricular complexes Left axis deviation Nonspecific ST abnormality Abnormal ECG Confirmed by RAYNA POWER, DANILO ([id number]), continuity editor YOLANDE RIVAS ([id number]) on 01/30/2021 10:08:32 AM Referred By: DARIAN Confirmed By:DANILO WAY MD
--- NOTE | 2021-01-29 07:37 | HP.PCM.HOS_ITS ---
HPI - General General Date of Admission: 01/29/21 Date of Service: 01/29/21 HPI Narrative ARON AMES, is a 70 M who presents with chest pain. Patient has significant risk factors including coronary artery disease with previous PTCA. Patient had recently been evaluated at [facility] had undergone left heart catheterization was found to have a distal 60% RCA lesion for which optimization of medical therapy was advised. Patient symptoms started on the morning of his presentation. Chest pain was located in the retrosternal region radiating down his left arm presented to the emergency department as a result subsequently admitted for further inpatient evaluation [facility] Medical History Aneurysm of infrarenal abdominal aorta Atherosclerotic heart disease of [place] coronary artery without angina pectoris Benign essential hypertension Bipolar disorder Chronic diastolic (congestive) heart failure COPD (chronic obstructive pulmonary disease) Depression Dyspnea Hepatitis B History of lung cancer Hyperlipidemia Lung nodule Old myocardial infarction SUJEY (obstructive sleep apnea) Panic disorder Premature atrial contractions Premature ventricular contraction Small cell carcinoma of left lung Type 2 diabetes mellitus Home Medications glimepiride 1 mg PO DAILY 02/09/20 [History Last Taken Unknown] metoprolol tartrate 50 mg tablet 50 mg PO BID tab 08/23/20 [History Last Taken Unknown] isosorbide mononitrate 30 mg tablet,extended release 24 hr 30 mg PO DAILY #30 tab 10/04/20 [Rx Last Taken Unknown] acetaminophen [Tylenol] 325 mg PO Q6H PRN 01/29/21 [History Last Taken Unknown] apixaban [Eliquis] 5 mg PO BID 01/29/21 [History Last Taken Unknown] aspirin 81 mg PO DAILY 01/29/21 [History Last Taken Unknown] cyanocobalamin (vitamin B-12) 1,000 mcg PO DAILY 01/29/21 [History Last Taken Unknown] linagliptin [Tradjenta] 5 mg PO DAILY 01/29/21 [History Last Taken Unknown] losartan 25 mg PO DAILY 01/29/21 [History Last Taken Unknown] Allergy/AdvReac Type Severity Reaction Status Date / Time Koufhps-Ock-Rkh Reductase Allergy Other Verified 01/29/21 02:17 Inhibitor atorvastatin AdvReac Severe myalgias Verified 01/29/21 02:17 hydrocodone [From Lortab] AdvReac Severe UNKOWN Verified 01/29/21 02:17 tramadol [From Ultram] AdvReac Severe UNKOWN Verified 01/29/21 02:17 zolpidem [From Ambien] AdvReac Severe UNKOWN Verified 01/29/21 02:17 alprazolam [From Xanax] AdvReac Other Verified 01/29/21 02:17 loratadine AdvReac Unknown Verified 01/29/21 02:17 metformin AdvReac Abd Verified 01/29/21 02:17 cramps/diarrhea oxycodone [Oxycodone] AdvReac Itching Verified 01/29/21 02:17 oxycodone HCl [From Percocet] AdvReac Itching Verified 01/29/21 02:17 Penicillins AdvReac Vomiting Verified 01/29/21 02:17 Family History Brother Hypertension Mother Heart disease CHF (congestive heart failure) Father Cancer kidney Surgical History History of cholecystectomy (~2011) History of lobectomy of lung History of lung surgery History of tongue cancer (~2012) Postsurgical percutaneous transluminal coronary angioplasty (PTCA) status Presence of stent in coronary artery (~06/22/08) Social History Smoking Status: Former smoker quit date: 04/28/99 pack-years: 20 how long ago did patient quit smokin years ago alcohol intake: former year quit: 1989 substance use type: does not use caffeine: No ROS ROS Narrative GENERAL: denies fever, chills, HEENT: denies headache, sinus congestion, RESPIRATORY: denies cough, sputum production, CARDIAC: chest pain, GASTROINTESTINAL: denies abdominal pain, nausea, vomiting, melena, GENITOURINARY: denies dysuria, urgency, frequency, heamaturia EXTREMITY: denies swelling MUSCULOSKELETAL: denies current joint pain or tenderness NEUROLOGIC: denies focal numbness, weakness, tingling HEMATOLOGIC: denies easy bruising and/or hemorrhage INTEGUMENT: denies rashes PSYCHIATRIC: denies suicidal or homicidal ideation Vital Signs Vital Signs Vital Signs: 01/29/21 02:10 01/29/21 02:21 01/29/21 04:25 Temperature 97.4 F L Temperature Source Temporal Pulse Rate 70 63 Respiratory Rate 14 15 Blood Pressure 152/73 H 163/73 H Blood Pressure Mean 99 103 Pulse Ox 97 93 98 Oxygen Delivery Method Nasal Cannula Nasal Cannula Oxygen Flow Rate (L/min) 2 01/29/21 07:18 Temperature Temperature Source Pulse Rate 61 Respiratory Rate 14 Blood Pressure 176/78 H Blood Pressure Mean 110 Pulse Ox 98 Oxygen Delivery Method Nasal Cannula Oxygen Flow Rate (L/min) 2 Weight Weight: 123.9 kg Body Mass Index (BMI) 37.0 Physical Exam Narrative GENERAL: cooperative HEENT: Atraumatic; EYES; Anicteric, Normal Conjunctiva NECK; supple, normal thyroid, RESPIRATORY: Diminished to auscultation CARDIOVASCULAR: Regular S1 S2, GI: soft, normoactive bowel sounds, : No Renal angle tenderness; EXTREMITIES: No edema, no clubbing, MUSCULOSKELETAL: no muscle waisting NEURO: Awake; no lateralizing signs. SKIN: No Rash PSYCH; Flat affect Results Lab / Micro Data Result Diagrams: 01/29/21 02:17 01/29/21 02:17 Labs: Laboratory Results - last 24 hr 01/29/21 02:17: WBC 9.9, RBC 4.61, Hgb 13.7, Hct 42.3, MCV 91.8, MCH 29.7, MCHC 32.4, RDW Std Deviation 47.9 H, RDW Coeff of Yang 14.0, Plt Count 244, MPV 11.0, Immature Gran % (Auto) 0.500, Neut % (Auto) 52.3, Lymph % (Auto) 31.3, Dickson % (Auto) 10.6 H, Eos % (Auto) 4.7, Baso % (Auto) 0.6, Absolute Neuts (auto) 5.2, Absolute Lymphs (auto) 3.09, Nucleated RBC % 0 01/29/21 02:17: Sodium 139, Potassium 4.5, Chloride 107, Carbon Dioxide 25.0, Anion Gap 7, BUN 15, Creatinine 1.08, Estim Creat Clear Calc 68.86, Est GFR (MDRD) Af Amer 87, Est GFR (MDRD) Non-Af 72, BUN/Creatinine Ratio 13.9, Glucose 98, Calcium 8.9, Troponin I High Sens 16 01/29/21 04:23: Troponin I High Sens 18 Rhythm Strip Rhythm Strip: Sinus Rhythm Rate: 71 Ectopy: PVC(s) and PAC(s) Radiology Impression Chest X-Ray 01/29/21 02:15 IMPRESSION: No significant interval change. Electronically Signed: Aleks Soria MD at 3:00 EDT Tel , Service support , Assessment & Plan Assessment/Plan (1) Chest pain: PLAN: Patient is a 70-year-old gentleman presented with chest pain 1. Chest pain ?Admitted to monitored bed plan is rule out [place] with serial cardiac enzymes. Patient had recently undergone left heart catheterization found to have a 60% distal RCA lesion for which optimization of medical therapy was advised. Consultation was placed to cardiology as a result 2. Paroxysmal A. fib ?Rate controlled on systemic anticoagulation with apixaban will continue 3. Hypertension - Blood pressure controlled, home medications continued with dose adjustment as needed 4. Diabetes mellitus type 2 ?Did continue with home meds 5. History of head and neck cancer ?Currently remission 6. History of lung CA ?Currently in remission 7. Dyslipidemia ?Per history apparently has allergies to statin therapies 8. Chronic congestive heart failure ?With preserved ejection fraction currently compensated 9. History of AAA ?Currently being monitored as outpatient by PCP and cardiology Advance planning; did discuss with the patient and family regarding advanced directives as well as CODE STATUS. Did explain the various scenarios involved ( FULL CODE, DNR CCA, DNR CCA with no intubation, and DNR CC and what each meant) patient elected to be DNR CCA no intubation. Order was placed. Time spent on discussion 18 minutes. Charges/Coding Visit Charges OBSV E&M: 89762 Initial observation care L3 Procedures Hospitalists Procedures: 70920 Advncd Care Plan 30 Min
--- NOTE | 2021-01-29 08:47 | ECHOCS_ITS ---
Reason For Study: DYSPNEA/SOB Procedure This was a 2D Doppler, Color Flow transthoracic echocardiogram. The study was technically limited. Due to body habitus. Contrast injection was performed. Exam performed in department. Left Ventricle Normal LV size. Moderate concentric left ventricular hypertrophy. The estimated ejection fraction is 40 %. Stage 1 diastolic dysfunction. No regional wall motion abnormalities noted. Right Ventricle Normal RV size. Normal systolic function. Atria The left atrium is moderately enlarged. Normal right atrium. Mitral Valve Normal mitral valve. Tricuspid Valve Normal tricuspid valve. Mild (1+) tricuspid valve insufficiency. Pulmonary artery systolic pressure is 26 mmHg. Aortic Valve Trisinus/trileaflet aortic valve. Pulmonic Valve The pulmonic valve is not well visualized. Great Vessels Normal aortic root. The pulmonary artery is normal size. Normal inferior vena cava. Pericardium/Pleural No pericardial effusion. Medication Definity3.5ml given slow IV push to enhance endocardial definition. MMode/2D Measurements & Calculations LVIDd: 6.2 cm IVSd: 1.4 cm Ao root diam: 3.7 cm LVIDs: 4.5 cm LVPWd: 1.4 cm RVDd: 3.5 cm FS: 27.6 % LAV(MOD-bp): 77.9 ml LA A4 area: 24.8 cm2 LA dimension(2D): 4.0 cm LAV(MOD-bp) Indexed: 32.7 ml/m2 LAV(MOD-sp2): 74.2 ml LAV(MOD-sp4): 74.0 ml RA A4 area: 18.2 cm2 Time Measurements MV dec time: 0.27 sec Doppler Measurements & Calculations MV E max garfield: 98.9 cm/sec Lat Peak E' Garfield: 6.6 cm/sec Med Peak E' Garfield: 4.6 cm/sec MV A max garfield: 123.6 cm/sec E/E' lat: 14.9 E/E' med: 21.6 MV E/A: 0.80 Ao V2 max: 166.2 cm/sec LV V1 max: 100.1 cm/sec PA V2 max: 98.0 cm/sec Ao max P.1 mmHg LV V1 max P.0 mmHg TR max garfield: 237.3 cm/sec TR max P.5 mmHg ECHO/Echo Complete W/ Contrast Interpretation Summary Normal LV size. Moderate concentric left ventricular hypertrophy. The estimated ejection fraction is 40 %. Stage 1 diastolic dysfunction. The left atrium is moderately enlarged. Pulmonary artery systolic pressure is 26 mmHg. Contrast injection was performed. Ordering Physician: Shayne Cruz Referring Physician: Bruce Calvillo Chi Performed By: Lillian Rios, RASHAD, RVT
--- NOTE | 2021-01-29 08:48 | CON.PCM.CA_ITS ---
Assessment & Plan Assessment/Plan (1) Postsurgical percutaneous transluminal coronary angioplasty (PTCA) status: PLAN: He is status post previous angioplasty and stenting of the right coronary artery. Recent cardiac catheterization at [facility] demonstrates evidence of residual disease noted in the distal posterolateral vessel. It was reviewed by business education instructor who decided that medical therapy would suffice. Unfortunately does not appear that he has been on adequate medical therapy. I would recommend that we optimize the above by increasing the metoprolol to 50 mg twice a day * Continue isosorbide 30 mg once a day * Depending on the response to the above therapy further recommendations will be made. (2) Benign essential hypertension: PLAN: His blood pressure does not appear to be under best control. Would recommend increasing losartan to 50 mg once a day Increase metoprolol to 50 mg twice a day and continue to monitor. (3) History of atrial fibrillation: PLAN: He does have a history of atrial fibrillation and appears to be in sinus rhythm at this time We will hold Eliquis for now but likely resume on discharge (4) Chronic diastolic (congestive) heart failure: PLAN: He does have evidence of left ventricular systolic dysfunction with congestive heart failure. I would recommend that we reevaluate his echocardiographic findings. There appears to be a discrepancy in the ejection fraction. Depending on those findings further recommendations will be made. He will nonetheless remain on the beta-mariana and ARB. Thank you for allowing me to participate in the care of your patient. Please don't hesitate to call if any issues arise. Addendum at 11:10 AM. EKG reviewed as well as echocardiogram reviewed. His ejection fraction is in the range of 40%. 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 Waldron. Catheterization results from [facility] reviewed. HPI Consult Data Date of Consult: 01/29/21 HPI Narrative HPI Narrative: ARON AMES, is a 70 M who presents to the emergency him with chest discomfort. He says that this started a few days ago. He described his as a heaviness radiating to his arm. He does have a history of known coronary artery disease previously being followed here. He had a subtotally occluded right coronary artery noted from before as well as hypertension. He had presented to our hospital with atrial flutter with a rapid ventricular response rate. It was misconstrued as a STEMI and he was transferred to [facility]. On arrival there he was noted to be in atrial flutter with rapid ventricular response rate. He was treated with medication and had an echocardiogram performed. The ejection fraction was apparently read as 10%. He subsequently underwent a cardiac catheterization which demonstrated a normal left main coronary artery, left anterior descending artery with mild disease, left circumflex artery with mild disease, left to right collaterals, a previously placed stent in the right coronary artery with about 60% stenosis, and a small posterolateral vessel with 99% stenosis. His ejection fraction by the cardiac catheterization was estimated to be 35 to 40%. It was decided based on the above that he should be treated with maximal medical therapy. He was a lso treated with anticoagulation and cardioverted back to sinus rhythm. He denies any paroxysmal nocturnal dyspnea or pedal edema. He says that he has been compliant with his medications but on further questioning it appears that he has been on only 3 out of the possible 9 or 10 medications. He is currently pain-free. His EKG demonstrates normal sinus rhythm with occasional PVC and no acute changes. [facility] Medical History Aneurysm of infrarenal abdominal aorta Atherosclerotic heart disease of [place] coronary artery without angina pectoris Benign essential hypertension Bipolar disorder Chronic diastolic (congestive) heart failure COPD (chronic obstructive pulmonary disease) Depression Dyspnea Hepatitis B History of lung cancer Hyperlipidemia Lung nodule Old myocardial infarction SUJEY (obstructive sleep apnea) Panic disorder Premature atrial contractions Premature ventricular contraction Small cell carcinoma of left lung Type 2 diabetes mellitus Home Medications glimepiride 1 mg PO DAILY 02/09/20 [History Last Taken Unknown] metoprolol tartrate 50 mg tablet 50 mg PO BID tab 08/23/20 [History Last Taken Unknown] isosorbide mononitrate 30 mg tablet,extended release 24 hr 30 mg PO DAILY #30 tab 10/04/20 [Rx Last Taken Unknown] acetaminophen [Tylenol] 325 mg PO Q6H PRN 01/29/21 [History Last Taken Unknown] apixaban [Eliquis] 5 mg PO BID 01/29/21 [History Last Taken Unknown] aspirin 81 mg PO DAILY 01/29/21 [History Last Taken Unknown] cyanocobalamin (vitamin B-12) 1,000 mcg PO DAILY 01/29/21 [History Last Taken Unknown] linagliptin [Tradjenta] 5 mg PO DAILY 01/29/21 [History Last Taken Unknown] losartan 25 mg PO DAILY 01/29/21 [History Last Taken Unknown] Allergy/AdvReac Type Severity Reaction Status Date / Time [id number] Reductase Allergy Other Verified 01/29/21 02:17 Inhibitor atorvastatin AdvReac Severe myalgias Verified 01/29/21 02:17 hydrocodone [From Lortab] AdvReac Severe UNKOWN Verified 01/29/21 02:17 tramadol [From Ultram] AdvReac Severe UNKOWN Verified 01/29/21 02:17 zolpidem [From Ambien] AdvReac Severe UNKOWN Verified 01/29/21 02:17 alprazolam [From Xanax] AdvReac Other Verified 01/29/21 02:17 loratadine AdvReac Unknown Verified 01/29/21 02:17 metformin AdvReac Abd Verified 01/29/21 02:17 cramps/diarrhea oxycodone [Oxycodone] AdvReac Itching Verified 01/29/21 02:17 oxycodone HCl [From Percocet] AdvReac Itching Verified 01/29/21 02:17 Penicillins AdvReac Vomiting Verified 01/29/21 02:17 Family History Brother Hypertension Mother Heart disease CHF (congestive heart failure) Father Cancer kidney Surgical History History of cholecystectomy (~2011) History of lobectomy of lung History of lung surgery History of tongue cancer (~2012) Postsurgical percutaneous transluminal coronary angioplasty (PTCA) status Presence of stent in coronary artery (~06/22/08) Social History Smoking Status: Former smoker quit date: 04/28/99 pack-years: 20 how long ago did patient quit smokin years ago alcohol intake: former year quit: 1989 substance use type: does not use caffeine: No ROS Constitutional Constitutional: Denies fever(s) or weight loss Eyes Eyes: Reports systems reviewed and no addt'l complaints, except as documented ENT HEENT: Reports systems reviewed and no addt'l complaints, except as documented Cardiovascular Cardiovascular: Reports chest pain at rest and chest pain with activity; Denies dyspnea at rest, dyspnea on exertion, edema, palpitations or paroxysmal nocturnal dyspnea Respiratory/Chest Respiratory/Chest: Denies dyspnea on exertion, productive cough, shortness of breath at rest or shortness of breath with exertion Gastrointestinal Gastrointestinal: Denies change in bowel habits, nausea, vomiting or weight changes Genitourinary Genitourinary: Denies difficulty urinating Musculoskeletal Musculoskeletal: Denies joint stiffness or muscle weakness Integumentary Integumentary: Denies lesions Neurologic Neurologic: Denies dizziness or syncope Psychiatric Psychiatric: Denies anxiety Endocrine Endocrinology: Denies excessive sweating or fatigue Hematologic/Lymphatic Hematologic/Lymphatic: Denies anemia Allergic/Immunologic Allergic/Immunologic: Denies seasonal rhinorrhea Physical Exam Const alert, oriented x3 and no apparent distress General Appearance: cooperative HEENT hearing grossly normal bilaterally Head and Scalp: atraumatic Eyes EOMs intact bilaterally Neck General: normal visual inspection Chest inspection of chest normal and palpation of chest normal Resp normal respiratory effort Auscultation: clear to auscultation bilaterally Cardio regular rate, regular rhythm, S1 normal heart sound and S2 normal heart sound Jugular Venous Distention: JVD GI normal to inspection, nondistended, normoactive bowel sounds Extremity normal capillary refill and no pedal edema Peripheral Pulses: Yes pulses 2+ throughout and femoral pulses present Skin no rashes or lesions noted Neuro oriented x3 and CN's II-XII intact bilaterally Psych Appearance: grossly normal and appropriate Objective Data Vital Signs: Vital Signs Temp Pulse Resp BP Pulse Ox 97.9 F 67 16 170/76 H 99 01/29/21 08:22 01/29/21 08:24 01/29/21 08:22 01/29/21 08:22 01/29/21 08:22 Oxygen Flow Rate (L/min) 2 Oxygen Delivery Method Nasal Cannula Weight: 260 lb 2.327 oz Body Mass Index (BMI) 35.2 Lab / Micro Data Result Diagrams: 01/29/21 02:17 01/29/21 02:17 Labs: Laboratory Results - last 24 hr 01/29/21 02:17: WBC 9.9, RBC 4.61, Hgb 13.7, Hct 42.3, MCV 91.8, MCH 29.7, MCHC 32.4, RDW Std Deviation 47.9 H, RDW Coeff of Yang 14.0, Plt Count 244, MPV 11.0, Immature Gran % (Auto) 0.500, Neut % (Auto) 52.3, Lymph % (Auto) 31.3, [place] % (Auto) 10.6 H, Eos % (Auto) 4.7, Baso % (Auto) 0.6, Absolute Neuts (auto) 5.2, Absolute Lymphs (auto) 3.09, Nucleated RBC % 0 01/29/21 02:17: Sodium 139, Potassium 4.5, Chloride 107, Carbon Dioxide 25.0, Anion Gap 7, BUN 15, Creatinine 1.08, Estim Creat Clear Calc 68.86, Est GFR (MDRD) Af Amer 87, Est GFR (MDRD) Non-Af 72, BUN/Creatinine Ratio 13.9, Glucose 98, Calcium 8.9, Troponin I High Sens 16 01/29/21 04:23: Troponin I High Sens 18 Rhythm Strip Rhythm Strip: Sinus Rhythm Rate: 71 Ectopy: PVC(s) and PAC(s) Cardiology Labs/Tests 01/29/21 02:17: WBC 9.9, RBC 4.61, Hgb 13.7, Hct 42.3, MCV 91.8, MCH 29.7, MCHC 32.4, Plt Count 244, MPV 11.0, Immature Gran % (Auto) 0.500, Neut % (Auto) 52.3, Lymph % (Auto) 31.3, [place] % (Auto) 10.6 H, Eos % (Auto) 4.7, Baso % (Auto) 0.6, Absolute Neuts (auto) 5.2, Nucleated RBC % 0 01/29/21 02:17: Sodium 139, Potassium 4.5, Chloride 107, Carbon Dioxide 25.0, Anion Gap 7, BUN 15, Creatinine 1.08, Est GFR (MDRD) Af Amer 87, Est GFR (MDRD) Non-Af 72, BUN/Creatinine Ratio 13.9, Glucose 98, Calcium 8.9 Rhythm: EKG: ECHO: Stress Test: Cardiac Cath: PCI: CT Surgery: Holter monitor: EPS: PPM: CXR: Chest CT Scan: Radiography Diagnostic Testing: Radiology Impression Chest X-Ray 01/29/21 02:15 IMPRESSION: No significant interval change. Electronically Signed: Aleks Soria MD at 3:00 EDT Tel , Service support ,
[2021-01-29 08:51] LABS: Bedside Glucose 97 mg/dL (70-110)
[2021-01-29 09:00] LABS: Troponin-I HS 20 pg/mL (3.0-78.0)
[2021-01-29] MEDS: Cyanocobalamin 500 MCG Tablet PO (10:49)
[2021-01-29] MEDS: Isosorbide Mononitrate 30 MG Tablet PO (10:49)
[2021-01-29] MEDS: Metoprolol Tartrate 50 MG Tablet PO (10:49)
[2021-01-29] MEDS: Losartan Potassium 50 MG Tablet PO (10:49)
--- NOTE | 2021-01-29 11:22 | PCS.PANDOC ---
PANDEMIC DOCUMENTATION INITIATED: Date: 12/11/2020 Time: 190
[2021-01-29 12:06] LABS: Bedside Glucose 132 mg/dL (70-110)
--- NOTE | 2021-01-29 12:41 | PCM.DC.SUM ---
Providers Date of Admission: 01/29/21 Primary Care Physician: Dr. Bruce Calvillo MD Consultations 01/29/21 07:53 Consult: Cardiology Routine Consulting Provider: Shayne Cruz Reason for Consult: chest pain EMERGENT Consult: No MD Notified: Yes Date Notified: 01/29/21 Time Notified: 07:54 Method of Notification: Text Method of Consult:: In-Person Reason For Visit: CHEST PAIN Diagnosis Discharge Diagnosis (1) Chest pain: Status: Acute Code(s): R07.9 - Chest pain, unspecified Medications at Discharge Home Medications glimepiride 1 mg PO DAILY 02/09/20 metoprolol tartrate 50 mg tablet 50 mg PO BID tab 08/23/20 isosorbide mononitrate 30 mg tablet,extended release 24 hr 30 mg PO DAILY #30 tab 10/04/20 Eliquis 5 mg PO BID 01/29/21 Tradjenta 5 mg PO DAILY 01/29/21 acetaminophen [Tylenol] 325 mg PO Q6H PRN 01/29/21 aspirin 81 mg PO DAILY 01/29/21 cyanocobalamin (vitamin B-12) 1,000 mcg PO DAILY 01/29/21 losartan 25 mg PO DAILY 01/29/21 Hospital Course Summary of Care Provided Minutes Spent on Discharge: 50 Hospital Course: Patient is a 70-year-old gentleman presented with chest pain 1. Chest pain ?Admitted to monitored bed plan is rule out [place] with serial cardiac enzymes. Patient had recently undergone left heart catheterization found to have a 60% distal RCA lesion for which optimization of medical therapy was advised. Consultation was placed to cardiology as a result -Was seen by cardiology Dr. Cruz Case discussed with him he did recommend optimization of patient's medical therapy 2. Paroxysmal A. fib ?Rate controlled on systemic anticoagulation with apixaban will continue 3. Hypertension - Blood pressure controlled, home medications continued with dose adjustment as needed 4. Diabetes mellitus type 2 ?Did continue with home meds 5. History of head and neck cancer ?Currently remission 6. History of lung CA ?Currently in remission 7. Dyslipidemia ?Per history apparently has allergies to statin therapies 8. Chronic congestive heart failure ?With preserved ejection fraction currently compensated 9. History of AAA ?Currently being monitored as outpatient by PCP and cardiology Physical Exam Narrative GENERAL: cooperative HEENT: Atraumatic; EYES; Anicteric, Normal Conjunctiva NECK; supple, normal thyroid, RESPIRATORY: Diminished to auscultation CARDIOVASCULAR: Regular S1 S2, NEURO: Awake; no lateralizing signs. SKIN: No Rash PSYCH; Flat affect Weight / BMI Weight Weight: 118 kg Body Mass Index (BMI) 35.2 ABG / Lab / Microbiology Data Result Diagrams: 01/29/21 02:17 01/29/21 02:17 Laboratory: Laboratory Results - last 24 hr 01/29/21 02:17: WBC 9.9, RBC 4.61, Hgb 13.7, Hct 42.3, MCV 91.8, MCH 29.7, MCHC 32.4, RDW Std Deviation 47.9 H, RDW Coeff of Yang 14.0, Plt Count 244, MPV 11.0, Immature Gran % (Auto) 0.500, Neut % (Auto) 52.3, Lymph % (Auto) 31.3, [place] % (Auto) 10.6 H, Eos % (Auto) 4.7, Baso % (Auto) 0.6, Absolute Neuts (auto) 5.2, Absolute Lymphs (auto) 3.09, Nucleated RBC % 0 01/29/21 02:17: Sodium 139, Potassium 4.5, Chloride 107, Carbon Dioxide 25.0, Anion Gap 7, BUN 15, Creatinine 1.08, Estim Creat Clear Calc 68.86, Est GFR (MDRD) Af Amer 87, Est GFR (MDRD) Non-Af 72, BUN/Creatinine Ratio 13.9, Glucose 98, Calcium 8.9, Troponin I High Sens 16 01/29/21 04:23: Troponin I High Sens 18 01/29/21 08:36: Troponin I High Sens 20 01/29/21 08:44: POC Glucose 97 01/29/21 12:00: POC Glucose 132 H Radiography Diagnostic Testing: Radiology Impression Chest X-Ray 01/29/21 02:15 IMPRESSION: No significant interval change. Electronically Signed: Aleks Soria MD at 3:00 EDT Tel , Service support , Echocardiogram 01/29/21 08:47 Interpretation Summary Normal LV size. Moderate concentric left ventricular hypertrophy. The estimated ejection fraction is 40 %. Stage 1 diastolic dysfunction. The left atrium is moderately enlarged. Pulmonary artery systolic pressure is 26 mmHg. Contrast injection was performed. Ordering Physician: Shayne Cruz Referring Physician: Bruce Calvillo Chi Performed By: Lillian Rios RDCS, RVT D/C Instructions Discharge Diet: No restrictions Discharge Activity: Return to Normal Activity Call your doctor if you observe: Fever of 101 or Higher, Shortness of breath, Fainting spells and Chest pain Meaningful Use Info Meaningful Use Diagnoses (Choose all that apply): None applicable Discharge Plan Admission Admit Date/Time: 01/29/21 07:33 Attending Provider: Patrick Ascencio Primary Care Provider: Bruce Calvillo Chi Consulting Providers: Shayne Cruz Discharge Orders/Prescriptions Prescriptions: Continued metoprolol tartrate 50 mg tablet 50 mg PO BID RF: 0 isosorbide mononitrate 30 mg tablet extended release 24 hr 30 mg PO DAILY Qty: 30 RF: 11 glimepiride 1 MG tablet 1 mg PO DAILY RF: 0 acetaminophen [Tylenol] 325 mg Tablet 325 mg PO Q6H PRN (Reason: Pain) RF: 0 losartan 25 mg Tablet 25 mg PO DAILY RF: 0 Tradjenta 5 mg Tablet 5 mg PO DAILY RF: 0 Eliquis 5 mg Tablet 5 mg PO BID RF: 0 cyanocobalamin (vitamin B-12) 500 mcg Tablet, Sublingual 1,000 mcg PO DAILY RF: 0 aspirin 81 mg Capsule 81 mg PO DAILY RF: 0 Referrals / Follow Up: Bruce Calvillo Chi, MD [Primary Care Provider] - Disposition Disposition (needs filled in before D/C Order can be placed): [facility] Charges/Coding Visit Charges OBSV E&M: 96165 Observ/hosp same date L3
--- NOTE | 2021-01-29 12:45 | PCM.TXEXTCAR ---
Diet 01/29/21 07:34 Diet: Cardiac: Calorie-Controlled Food consistency:: Regular Liquid Consistency:: Regular/Thin How many daily calories?: 1999 calorie Therapies Physical Therapy: Eval and Treat Occupational Therapy: Eval and Treat Problem/Diagnosis (1) Chest pain: Status: Acute Allergies/Procedures Done in Hospital Allergies [id number]-[id number] Reductase Inhibitor Allergy (Verified 01/29/21 02:17) Other atorvastatin Adverse Reaction (Severe, Verified 01/29/21 02:17) myalgias hydrocodone [From Lortab] Adverse Reaction (Severe, Verified 01/29/21 02:17) UNKOWN tramadol [From Ultram] Adverse Reaction (Severe, Verified 01/29/21 02:17) UNKOWN zolpidem [From Ambien] Adverse Reaction (Severe, Verified 01/29/21 02:17) UNKOWN alprazolam [From Xanax] Adverse Reaction (Verified 01/29/21 02:17) Other HALLUCINATIONS loratadine Adverse Reaction (Verified 01/29/21 02:17) Unknown metformin Adverse Reaction (Verified 01/29/21 02:17) Abd cramps/diarrhea oxycodone [Oxycodone] Adverse Reaction (Verified 01/29/21 02:17) Itching oxycodone HCl [From Percocet] Adverse Reaction (Verified 01/29/21 02:17) Itching Penicillins Adverse Reaction (Verified 01/29/21 02:17) Vomiting Type of Care/Length of Stay Estimated LOS: Convalescent Care Less Than 30 days Type of Care Needed: Skilled Rehab Potential: Good Prognosis: Good Additional Orders/Day of Discharge Day of Discharge: 01/29/21 Discharge Plan Admission Admit Date/Time: 01/29/21 07:33 Attending Provider: Patrick Ascencio Primary Care Provider: Bruce Calvillo Chi Consulting Providers: Shayne Cruz Discharge Orders/Prescriptions Prescriptions: Continued metoprolol tartrate 50 mg tablet 50 mg PO BID RF: 0 isosorbide mononitrate 30 mg tablet extended release 24 hr 30 mg PO DAILY Qty: 30 RF: 11 glimepiride 1 MG tablet 1 mg PO DAILY RF: 0 acetaminophen [Tylenol] 325 mg Tablet 325 mg PO Q6H PRN (Reason: Pain) RF: 0 losartan 25 mg Tablet 25 mg PO DAILY RF: 0 Tradjenta 5 mg Tablet 5 mg PO DAILY RF: 0 Eliquis 5 mg Tablet 5 mg PO BID RF: 0 cyanocobalamin (vitamin B-12) 500 mcg Tablet, Sublingual 1,000 mcg PO DAILY RF: 0 aspirin 81 mg Capsule 81 mg PO DAILY RF: 0 Referrals / Follow Up: Bruce Calvillo Chi, MD [Primary Care Provider] - Disposition Disposition (needs filled in before D/C Order can be placed): Senior Living Facility
--- NOTE | 2021-01-29 13:34 | CASEMGMT ---
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 NATHANIEL notified RN, warehouse logistics manager, and Carla with [facility]. Pattie GAGE Original Note: Patient is from [facility]. NATHANIEL called Carla and let her know patient is going to be discharged today. She said that is fine and we can send him back. NATHANIEL spoke with patient and he confirmed his plan is to return to [facility]. He said he can go by wheelchair van. NATHANIEL faxed orders to Carla. NATHANIEL called [facility] to arrange transport. (required by patient's insurance) SW gave them necessary information. They will call or PCU when a [place] [id number]. Await return call regarding pick up and delivery driver time. Plan; d/c back to [facility] under intermediate level of care. Pattie GAGE
--- NOTE | 2021-01-29 13:39 | PHA.DC.MR ---
Pharmacy Service has performed discharge medication reconciliation for this patient. The patient's discharge medication list was reviewed for discrepancies and discrepancies were resolved. Home Medications glimepiride 1 mg PO DAILY 02/09/20 metoprolol tartrate 50 mg tablet 50 mg PO BID tab 08/23/20 isosorbide mononitrate 30 mg tablet,extended release 24 hr 30 mg PO DAILY #30 tab 10/04/20 Eliquis 5 mg PO BID 01/29/21 Tradjenta 5 mg PO DAILY 01/29/21 acetaminophen [Tylenol] 325 mg PO Q6H PRN 01/29/21 aspirin 81 mg PO DAILY 01/29/21 cyanocobalamin (vitamin B-12) 1,000 mcg PO DAILY 01/29/21 losartan 25 mg PO DAILY 01/29/21
--- NOTE | 2021-01-29 13:46 | NURSING ---
Report called to [facility] to nurse Maria.
[2021-01-29] MEDS: Ibuprofen 200 MG Tablet PO (15:26)
== END 2021-01-29 12:43 | disposition skilled nursing facility (03) ==
LOC: ED 02:45 → PCU 07:51
PROVIDERS: Admitting Provider Internal Medicine; Emergency Provider Emergency Medicine; PCP Family Medicine Geriatric Medicine; Visit Provider Internal Medicine
DX: R07.89 Other chest pain (principal); I48.0 Paroxysmal atrial fibrillation; I11.0 Hypertensive heart disease with heart failure; E11.9 Type 2 diabetes mellitus without complications; E78.5 Hyperlipidemia, unspecified; I50.32 Chronic diastolic (congestive) heart failure; I25.2 Old myocardial infarction; J44.9 Chronic obstructive pulmonary disease, unspecified; I25.10 Atherosclerotic heart disease of native coronary artery without angina pectoris; G47.33 Obstructive sleep apnea (adult) (pediatric); F31.9 Bipolar disorder, unspecified; F41.0 Panic disorder [episodic paroxysmal anxiety]; Z79.01 Long term (current) use of anticoagulants; Z85.118 Personal history of other malignant neoplasm of bronchus and lung; Z79.899 Other long term (current) drug therapy; Z79.82 Long term (current) use of aspirin; Z79.84 Long term (current) use of oral hypoglycemic drugs; Z87.891 Personal history of nicotine dependence; Z86.79 Personal history of other diseases of the circulatory system
CPT/HCPCS: 36415; 71045; 80048; 82962; 84484; 85025; 93005; 93306; 99218; 99251; 99285; Q9957; A4216; C8929; G0378; G0463

== ENCOUNTER → 2021-02-05 15:45 | Outpatient (CLI) | payer MEDICARE, MEDICAID, SELFPAY ==
[2021-02-05 17:05] LABS: Absolute Lymphocyte Count 2.51 X10^3/uL (0.83-4.51); Basophil# 0.05 X10^3/uL; Basophil% 0.5 % (0-1); Eosinophil# 0.45 X10^3/uL; Eosinophils% 4.6 % (0-5); Hematocrit 40.9 % (40-54); Hemoglobin 13.3 g/dL (13.0-16.5); Lymphocyte # 2.51 X10^3/ul (0.83-4.51); Lymphocyte % 25.8 % (19-41); Mean Corp Hgb Conc 32.5 g/dL (32-36); Mean Corpuscular Hgb 29.7 pg (27.0-32.0); Mean Corpuscular Volume 91.3 fL (80-94); Monocyte# 0.71 X10^3/uL; Monocyte% 7.3 % (0-10); NRBC Flagged by Analyzer 0 % (0-5); Neutrophil # 5.95 X10^3/uL (2.7-7.7); Neutrophil % 61.4 % (47-70); Platelet Count 193 K/mm3 (150-450); RBC Distribution Width SD 47.3 fl (35.1-43.9); Red Blood Count 4.48 M/mm3 (4.6-6.2); White Blood Count 9.7 K/mm3 (4.4-11.0)
[2021-02-05 17:06] LABS: Vitamin D,25 Hydroxy 15.4 ng/mL
[2021-02-05 17:28] LABS: ALB/GLOB Ratio 0.7 RATIO (0.9-2.4); AST(SGOT) 22 U/L (15-37); Alanine Aminotransfer ALT/SGPT 29 U/L (16-61); Albumin, Serum 2.9 g/dL (3.2-5.0); Alkaline Phosphatase 73 U/L (45-117); Anion Gap 8 (5-15); BUN 12 mg/dL (7-18); BUN/Creat Ratio 10.3 RATIO (10-20); Calcium,Total 8.7 mg/dL (8.5-10.1); Chloride 105 mmol/L (98-107); Creatinine, Serum 1.17 mg/dL (0.70-1.30); EST Glomerular Filtration Rate 65 mL/min (>60); Est Glom Filt Rate - Afr Amer 79 mL/min (>60); Glucose 141 mg/dL (74-106); Potassium 4.3 mmol/L (3.5-5.1); Protein, Total 6.9 g/dL (6.4-8.2); Sodium Level 140 mmol/L (136-145)
== END ==
PROVIDERS: PCP Family Medicine Geriatric Medicine; Visit Provider Family Medicine Geriatric Medicine
DX: E11.9 Type 2 diabetes mellitus without complications (principal); E55.9 Vitamin D deficiency, unspecified; I10 Essential (primary) hypertension
CPT/HCPCS: 36415; 80053; 82306; 84443; 85025